=== PATIENT | female | born 1965 | race African-American/Black ===

== ENCOUNTER → 2016-04-11 | Outpatient (CLI) | payer MEDICAID ==
[2016-04-11 14:50] LABS: ABSOLUTE LYMPHOCYTES (AUTO) 2.7 10^3/uL (0.5-4.7); ABSOLUTE MONOCYTES (AUTO) 0.4 10^3/uL (0.1-1.4); ABSOLUTE NEUT (AUTO) 2.9 10^3/uL (1.7-8.2); BASOPHILS % (AUTO) 0.5 % (0-2); EOSINOPHILS % (AUTO) 0.5 % (0-6); HEMATOCRIT 33.9 % (36.0-47.0); HEMOGLOBIN 11.3 g/dL (12.0-15.5); LYMPHOCYTES % (AUTO) 44.6 % (13-45); MEAN CORPUSCULAR HEMOGLOBIN 26.4 pg (27.0-33.4); MEAN CORPUSCULAR HGB CONC 33.3 g/dL (32.0-36.0); MEAN CORPUSCULAR VOLUME 79 fl (80-97); MONOCYTES % (AUTO) 6.6 % (3-13); RED BLOOD COUNT 4.27 10^6/uL (3.72-5.28); RED CELL DISTRIBUTION WIDTH 16.1 % (11.5-14.0); SEGMENTED NEUTROPHILS % (AUTO) 47.8 % (42-78); WHITE BLOOD COUNT 6.1 10^3/uL (4.0-10.5)
[2016-04-11 15:03] LABS: ALANINE AMINOTRANSFERASE 30 U/L (9-52); ALBUMIN 4.4 g/dL (3.5-5.0); ALKALINE PHOSPHATASE 81 U/L (38-126); ANION GAP 14 (5-19); ASPARTATE AMINO TRANSFERASE 21 U/L (14-36); BILIRUBIN,TOTAL 0.5 mg/dL (0.2-1.3); BLOOD UREA NITROGEN 10 mg/dL (7-20); CALCIUM 9.4 mg/dL (8.4-10.2); CARBON DIOXIDE 25 mmol/L (22-30); CHLORIDE 107 mmol/L (98-107); CREATININE RESULT 0.83 mg/dL (0.52-1.25); GLUCOSE 82 mg/dL (75-110); POTASSIUM 3.8 mmol/L (3.6-5.0)
== END ==
LOC: OD 13:52
PROVIDERS: ATTEND Family Medicine
DX: K50.90 Crohn's disease, unspecified, without complications (principal)
CPT/HCPCS: 36415; 80053; 85025

== ENCOUNTER → 2016-05-11 | Outpatient (CLI) | payer MEDICAID ==
[2016-05-11 11:01] LABS: HEMATOCRIT 34.1 % (36.0-47.0); HEMOGLOBIN 11.1 g/dL (12.0-15.5); HGB HCT DIFFERENCE -0.8; MEAN CORPUSCULAR HEMOGLOBIN 26.1 pg (27.0-33.4); MEAN CORPUSCULAR HGB CONC 32.6 g/dL (32.0-36.0); MEAN CORPUSCULAR VOLUME 80 fl (80-97); RED BLOOD COUNT 4.26 10^6/uL (3.72-5.28); RED CELL DISTRIBUTION WIDTH 16.2 % (11.5-14.0); WHITE BLOOD COUNT 4.3 10^3/uL (4.0-10.5)
[2016-05-11 11:31] LABS: BILIRUBIN,TOTAL 0.7 mg/dL (0.2-1.3)
[2016-05-11 11:32] LABS: ALBUMIN 4.4 g/dL (3.5-5.0)
[2016-05-11 11:42] LABS: ERYTHROCYTE SEDIMENTATION RATE 68 mm/hr (0-30)
== END ==
LOC: OD 10:05
PROVIDERS: ATTEND Internal Medicine Gastroenterology
DX: K50.00 Crohn's disease of small intestine without complications (principal)
CPT/HCPCS: 36415; 80076; 85027; 85652; 86141

== ENCOUNTER 2016-05-21 04:09 | Emergency (ER) | payer MEDICAID ==
[2016-05-21] MEDS ORDERED: IPRATROPIUM/ALBUTEROL 0.5-2.5 MG/3 ML AMPUL NEB ONE ×2 (06:04)
[2016-05-21] MEDS ORDERED: HYDROCODONE/ACETAMINOPHEN 5-325 MG TABLET PO ONE (06:35)
--- NOTE | 2016-05-21 06:35 | ER Document Report ---
ED General - General Chief Complaint: Chest Tightness Stated Complaint: SHORT OF BREATH Mode of Arrival: Ambulatory Information source: Patient Notes: 51-year-old female history of Crohn's disease presents with one week duration of shortness of breath. Patient denies any fevers or chills today notes she had fevers over the past few days admits to headache congestion chest tightness productive yellow cough Patient is currently on azithromycin TRAVEL OUTSIDE OF THE [place] IN LAST 30 DAYS: No - HPI Onset: Last week Onset/Duration: Persistent Quality of pain: Achy Severity: Mild Pain Level: 1 Associated symptoms: Chest pain, Productive cough, Fever, Hurts to breath, Shortness of breath Exacerbated by: Coughing Relieved by: Denies Similar symptoms previously: Yes Recently seen / treated by doctor: Yes - Related Data Allergies/Adverse Reactions: morphine [Morphine] Allergy (Mild, Verified 01/21/16 02:34) aspirin [Aspirin] Allergy (Verified 03/26/15 06:16) NSAIDS (Non-Steroidal Anti-Inflamma [Nsaids] Allergy (Verified 03/26/15 06:16) pregabalin [From Lyrica] Allergy (Verified 03/26/15 06:16) Past Medical History - Social History Smoking Status: Never Smoker Cigarette use (# per day): No Chew tobacco use (# tins/day): No Smoking Education Provided: No Frequency of alcohol use: Rare Drug Abuse: None Family History: Reviewed & Not Pertinent Patient has suicidal ideation: No Patient has homicidal ideation: No - Past Medical History Cardiac Medical History: Reports: Hx Congestive Heart Failure, Hx Heart Attack - "mild" 2006, Hx Hypertension Neurological Medical History: Reports: Hx Cerebrovascular Accident - Patient claims to have had a stroke in May 2012. Renal/ Medical History: Denies: Hx Peritoneal Dialysis Malignancy Medical History: Reports: Hx Skin Cancer GI Medical History: Reports: Hx Crohn's Disease Past Surgical History: Reports: Hx Section - x5, Hx Cholecystectomy, Hx Herniorrhaphy, Hx Tonsillectomy - Immunizations Hx Diphtheria, Pertussis, Tetanus Vaccination: Yes - unsure of date Review of Systems - Review of Systems Notes: ALL OTHER SYSTEMS REVIEWED AND NEGATIVE. Dictation was performed using [employer] voice recognition software PHYSICAL EXAMINATION: GENERAL: Well-appearing, well-nourished and in no acute distress. HEAD: Atraumatic, normocephalic. EYES: Pupils equal round and reactive to light, extraocular movements intact, conjunctiva are normal. ENT: Nares patent, oropharynx clear without exudates. Moist mucous membranes. NECK: Normal range of motion, supple without lymphadenopathy LUNGS: Breath sounds clear to auscultation bilaterally and equal. No wheezes rales or rhonchi. HEART: Regular rate and rhythm without murmurs ABDOMEN: Soft, nontender, nondistended abdomen. No guarding, no rebound. No masses appreciated. Female : deferred Musculoskeletal: Normal range of motion, no pitting or edema. No cyanosis. NEUROLOGICAL: Cranial nerves grossly intact. Normal speech, normal gait. Normal sensory, motor exams PSYCH: Normal mood, normal affect. SKIN: Warm, Dry, normal turgor, no rashes or lesions noted. Course - Re-evaluation Re-evalutation: 05/21/16 06:34 Patient noted to have a productive cough of one-week duration, as already been placed on a Z-Barry was diagnosed as a viral infection unless. At this time patient notes that she continues to shortness of breath. Lab work imaging pending however she is in no distress resting comfortably 05/21/16 06:57 Physical examination on reevaluation notes no distress, patient still resting comfortably 05/21/16 08:22 Chest x-ray influenza were negative, patient has probable viral infections otherwise stable for discharge After performing a Medical Screening Examination, I estimate there is LOW risk for ACUTE CORONARY SYNDROME, RESPIRATORY FAILURE, SEPSIS OR MENINGITIS, thus I consider the discharge disposition reasonable. The patient and I have discussed the diagnosis and risks, and we agree with discharging home with close follow- up. We also discussed returning to the Emergency Department immediately if new or worsening symptoms occur. We have discussed the symptoms which are most concerning (e.g., changing or worsening pain, trouble swallowing or breathing, neck stiffness, fever) that necessitate immediate return. - Laboratory Result Diagrams: 05/21/16 06:41 05/21/16 06:41 Laboratory results interpreted by me: 05/21/16 05/21/16 06:41 06:41 WBC 3.0 L Hgb 11.1 L Hct 34.0 L MCH 26.1 L RDW 16.2 H Seg Neutrophils % 38.7 L Lymphocytes % 48.5 H Absolute Neutrophils 1.2 L Potassium 3.4 L AST 44 H Creatine Kinase 167 H - Diagnostic Test Radiology reviewed: Image reviewed, Reports reviewed - EKG Interpretation by Me EKG shows normal: Sinus rhythm, [place], QRS Complexes Discharge - Discharge Clinical Impression: Productive cough, Nasal congestion, Body aches Condition: Stable Disposition: HOME, SELF-CARE Instructions: Upper Respiratory Illness ([facility]) Referrals: ARIANNE HUBBARD MD [Primary Care Provider] - Follow up tomorrow
[2016-05-21 07:02] LABS: ABSOLUTE LYMPHOCYTES (AUTO) 1.5 10^3/uL (0.5-4.7); ABSOLUTE MONOCYTES (AUTO) 0.3 10^3/uL (0.1-1.4); ABSOLUTE NEUT (AUTO) 1.2 10^3/uL (1.7-8.2); BASOPHILS % (AUTO) 0.7 % (0-2); EOSINOPHILS % (AUTO) 1.3 % (0-6); HEMOGLOBIN 11.1 g/dL (12.0-15.5); HGB HCT DIFFERENCE -0.7; LYMPHOCYTES % (AUTO) 48.5 % (13-45); MEAN CORPUSCULAR HEMOGLOBIN 26.1 pg (27.0-33.4); MEAN CORPUSCULAR HGB CONC 32.7 g/dL (32.0-36.0); MEAN CORPUSCULAR VOLUME 80 fl (80-97); MONOCYTES % (AUTO) 10.8 % (3-13); RED BLOOD COUNT 4.26 10^6/uL (3.72-5.28); RED CELL DISTRIBUTION WIDTH 16.2 % (11.5-14.0); SEGMENTED NEUTROPHILS % (AUTO) 38.7 % (42-78)
[2016-05-21 07:09] LABS: ALANINE AMINOTRANSFERASE 25 U/L (9-52); ALBUMIN 3.7 g/dL (3.5-5.0); ALKALINE PHOSPHATASE 81 U/L (38-126); ANION GAP 10 (5-19); ASPARTATE AMINO TRANSFERASE 44 U/L (14-36); BILIRUBIN,TOTAL 0.4 mg/dL (0.2-1.3); BLOOD UREA NITROGEN 7 mg/dL (7-20); CALCIUM 8.8 mg/dL (8.4-10.2); CARBON DIOXIDE 30 mmol/L (22-30); CHLORIDE 104 mmol/L (98-107); CREATINE KINASE 167 U/L (30-135); CREATININE RESULT 0.85 mg/dL (0.52-1.25); GLUCOSE 90 mg/dL (75-110); POTASSIUM 3.4 mmol/L (3.6-5.0); SODIUM 144.1 mmol/L (137-145); TOTAL PROTEIN 8.1 g/dL (6.3-8.2)
[2016-05-21 07:21] LABS: CREATINE KINASE MB 0.27 ng/mL (<4.55)
[2016-05-21 07:22] LABS: TROPONIN I < 0.012 ng/mL
--- NOTE | 2016-05-21 08:21 | EKG REPORT ---
SEVERITY:- BORDERLINE ECG - SINUS RHYTHM BORDERLINE T ABNORMALITIES, ANTERIOR LEADS : Confirmed by: Clarence Birmingham 21-May-2016 08:21:15
[2016-05-21] MEDS ORDERED: ALBUTEROL SULFATE HFA (90 MCG/PUFF) 8 GM MDI (1 MDI/ER DISP) IH PRN (08:22)
[2016-05-21 08:39] VITALS: BP 126/65
== END 2016-05-21 08:50 | disposition home or self-care (01) ==
LOC: ER 04:09
DX: R05 Cough (principal); R09.81 Nasal congestion; R06.02 Shortness of breath; R51 Headache; R07.89 Other chest pain; R50.9 Fever, unspecified; I25.2 Old myocardial infarction; I10 Essential (primary) hypertension; Z86.73 Personal history of transient ischemic attack (TIA), and cerebral infarction without residual deficits; Z85.828 Personal history of other malignant neoplasm of skin; Z88.5 Allergy status to narcotic agent; Z88.6 Allergy status to analgesic agent; Z88.8 Allergy status to other drugs, medicaments and biological substances
CPT/HCPCS: 93005; 94640; 99285; 36415; 82553; 82550; 85025; 80053; 84484; 87804; 83880; 71020; 93010; J3490; J7620

== ENCOUNTER → 2016-07-23 | Outpatient (CLI) | payer MEDICAID | LOC: LAB 17:23 | PROVIDERS: ATTEND Family Medicine | DX: M48.06 Spinal stenosis, lumbar region (principal) | CPT/HCPCS: 36415; 85652; 86038; 86430 ==

== ENCOUNTER → 2016-10-01 | Outpatient (CLI) | payer MEDICAID ==
--- NOTE | 2016-10-01 17:16 | RADIOLOGY REPORT (SQ) ---
EXAM DESCRIPTION: FOOT LEFT COMPLETE COMPLETED DATE/TIME: 10/01/2016 4:50 pm REASON FOR STUDY: PAIN IN LEFT FOOT M79.672 PAIN IN LEFT FOOT COMPARISON: None. NUMBER OF VIEWS: Three views. TECHNIQUE: AP, lateral and oblique radiographic images acquired of the left foot. LIMITATIONS: None. FINDINGS: MINERALIZATION: Normal. BONES: No acute fracture or dislocation. No worrisome bone lesions for tumor. Dysmorphic left 5th t oe proximal phalanx, small and well corticated but irregular in shape. Question old remote prior fra cture. Plantar and dorsal calcaneal spurs are present JOINTS: No joint space narrowing or bulky bony spurring. SOFT TISSUES: Diffuse forefoot soft tissue swelling. No foreign body. OTHER: No other significant finding. IMPRESSION: Forefoot soft tissue swelling without acute findings. TECHNICAL DOCUMENTATION: JOB ID: [id number] [employer]- All Rights Reserved
== END ==
LOC: OD 16:10
PROVIDERS: ATTEND Family Medicine
DX: M79.672 Pain in left foot (principal)

== ENCOUNTER → 2017-02-15 | Outpatient (CLI) | payer MEDICARE, MEDICAID ==
--- NOTE | 2017-02-15 16:58 | WOMENS IMAGING REPORT ---
EXAM DESCRIPTION: 3D SCREENING MAMMO BILAT COMPLETED DATE/TIME: 02/15/2017 2:10 pm REASON FOR STUDY: ROUTINE SCREENING; Z12.31 Z12.31 ENCNTR SCREEN MAMMOGRAM FOR MALIGNANT NEOPLASM O F HERI COMPARISON: 08/17/2015 TECHNIQUE: Standard craniocaudal and mediolateral oblique views of each breast recorded using digita l acquisition and breast tomosynthesis. LIMITATIONS: None. FINDINGS: No masses, calcifications or architectural distortion. No areas of suspicion. Read with the assistance of CAD. .[facility] - R2 Cenova Version 1.3 .[facility] - R2 Cenova Version 1.3 .[facility] - R2 Cenova Version 2.4 .[facility] [place]2 Cenova Version 2.4 .[facility] - R2 We[employer] Lead Version 9.2 IMPRESSION: NORMAL MAMMOGRAM. BIRADS 1. BREAST DENSITY: a. The breasts are almost entirely fatty. BIRAD: 1 NEGATIVE RECOMMENDATION: ROUTINE SCREENING Please continue yearly bilateral screening tomosynthesis in February 2018 COMMENT: The patient has been notified of the results by letter per SA requirements. Additional no tification policies are in place for contacting patient with suspicious or incomplete findings. Quality ID #[id number]: The [employer] recommends an annual screening mammogram for women aged 40 years or over. This facility utilizes a reminder system to ensure that all patients receive reminder letters, and/or direct phone calls for appointments. This includes reminders for routine scr eening mammograms, diagnostic mammograms, or other Breast Imaging Interventions when appropriate. Th is patient will be placed in the appropriate reminder system. The [employer] (ACR) has developed recommendations for screening MRI of the breast s in certain patient populations, to be used in conjunction with mammography. Breast MRI surveillanc e may be appropriate for women with more than 20% lifetime risk of developing breast cancer as deter mined by genetic testing, significant family history of the disease, or history of mantle radiation f or Hodgkins Disease. ACR Practice Guidelines 2008. DBT Technology DBT is a type of tomographic mammography. With conventional mammography, overlapping breast tissue ma y make lesions difficult to detect, even with good compression. DBT uses an x-ray tube that rotates a round the breast, taking images at different angles. These images are then combined to create thin sl ices of the breast that the radiologist can view as a 3D reconstruction. The [employer] can perform full-field digital mammograms (2D imaging); or DBT (3D imaging); or both, in a combination mode that quickly performs both the mammogram and the tomosynthesis scan while the breast is still compressed. PQRS 6045F: Fluoroscopic imaging is not utilized for breast tomosynthesis. TECHNICAL DOCUMENTATION: FINDING NUMBER: (1) ASSESSMENT: (1) JOB ID: [id number] [employer]- All Rights Reserved
== END ==
LOC: WI 13:10
PROVIDERS: ATTEND Physician Assistant
DX: Z12.31 Encounter for screening mammogram for malignant neoplasm of breast (principal)
CPT/HCPCS: 77063; G0202; 77067

== ENCOUNTER 2017-04-01 12:47 | Emergency (ER) | payer MEDICARE, MEDICAID ==
[2017-04-01] MEDS ORDERED: HYDROMORPHONE HCL INJ/PF 2 MG/ML AMPULE IV ONE ×2 (14:37→17:15)
--- NOTE | 2017-04-01 14:38 | ER Document Report ---
ED Medical Screen (RME) - General Chief Complaint: Loose Stools Stated Complaint: STOMACH PAIN Time Seen by Provider: 04/01/17 14:29 Mode of Arrival: Ambulatory Information source: Patient Notes: 51-year-old female history of Crohn's diverticulosis presents with complaints of abdominal pain fever and distention I have greeted and performed a rapid initial assessment of this patient. A comprehensive ED assessment and evaluation of the patient, analysis of test results and completion of the medical decision making process will be conducted by additional ED providers. PHYSICAL EXAMINATION: GENERAL: Well-appearing, well-nourished and in no acute distress. HEAD: Atraumatic, normocephalic. EYES: Pupils equal round extraocular movements intact, conjunctiva are normal. ENT: Nares patent NECK: Normal range of motion LUNGS: No respiratory distress Musculoskeletal: Normal range of motion NEUROLOGICAL: Normal speech, normal gait. PSYCH: Normal mood, normal affect. SKIN: Warm, Dry, normal turgor, no rashes or lesions noted. TRAVEL OUTSIDE OF THE [place] IN LAST 30 DAYS: No - Related Data Allergies/Adverse Reactions: morphine [Morphine] Allergy (Mild, Verified 01/21/16 02:34) aspirin [Aspirin] Allergy (Verified 03/26/15 06:16) NSAIDS (Non-Steroidal Anti-Inflamma [Nsaids] Allergy (Verified 03/26/15 06:16) pregabalin [From Lyrica] Allergy (Verified 03/26/15 06:16) Home Medications: Current Home Medications Ergocalciferol (Vitamin D2) [Vitamin D2] 50,000 unit PO ASDIR PRN 04/01/17 [ History] Mometasone Furoate [Nasonex] 2 inh NS DAILY 04/01/17 [History] Oxycodone HCl 15 mg PO Q6H PRN 04/01/17 [History] Prednisone 2.5 mg PO DAILY 04/01/17 [History] Past Medical History - Social History Chew tobacco use (# tins/day): No Frequency of alcohol use: None Drug Abuse: None - Past Medical History Cardiac Medical History: Reports: Hx Congestive Heart Failure, Hx Heart Attack - "mild" 2006, Hx Hypertension Neurological Medical History: Reports: Hx Cerebrovascular Accident - Patient claims to have had a stroke in May 2012. Renal/ Medical History: Denies: Hx Peritoneal Dialysis Malignancy Medical History: Reports: Hx Skin Cancer GI Medical History: Reports: Hx Crohn's Disease Past Surgical History: Reports: Hx Section - x5, Hx Cholecystectomy, Hx Herniorrhaphy, Hx Tonsillectomy - Immunizations Hx Diphtheria, Pertussis, Tetanus Vaccination: Yes - unsure of date Physical Exam - Vital signs Vitals: Temp Pulse Resp BP Pulse Ox 98.6 F 85 20 187/87 H 96 04/01/17 13:01 04/01/17 13:01 04/01/17 13:01 04/01/17 13:01 04/01/17 13:01 Course - Vital Signs Vital signs: Temp Pulse Resp BP Pulse Ox 98.6 F 85 20 187/87 H 96 04/01/17 13:01 04/01/17 13:01 04/01/17 13:01 04/01/17 13:01 04/01/17 13:01
[2017-04-01] MEDS ORDERED: ONDANSETRON HCL INJ/PF 4 MG/2 ML SDV IV ONE (15:29)
--- NOTE | 2017-04-01 15:30 | ER Document Report ---
ED General - General Mode of Arrival: Ambulatory Information source: Patient TRAVEL OUTSIDE OF THE [place] IN LAST 30 DAYS: No - HPI Patient complains to provider of: Left knee and generalized abdominal pain Onset: Other - see notes above Associated symptoms: Other - see notes above <RAFAEL DINERO - Last Filed: 04/01/17 16:00> <SHARYN ANTHONY - Last Filed: 04/01/17 23:29> - General Chief Complaint: Loose Stools Stated Complaint: STOMACH PAIN Time Seen by Provider: 04/01/17 14:29 Notes: 51 year old female with history of Crohn's and diverticulitis (diagnosed 2014) presents to the ED complaining of left knee pain that started a few weeks ago but worsened recently. Patient received a cortisone shot which helped for a few days, but was told that she will likely need surgery in the future secondary to inflammation around the left knee. Patient additionally complains of generalized abdominal pain that started 2 days ago and was seen by her PCP. Patient was prescribed 10 mg Prednisone for 5 days and told to taper off following the full dose. Patient reports that she has not taken the steroids for the past 3 days. Patient also complains of nausea, night sweats and chills, and increased loose bowel movements, but denies vomiting. Patient receives Remicade infusions every 6 weeks with the last on 03/14 or 03/15. Patient was told she had CHF shortly following her mother's in 2004, states that she has not been seen for CHF and is not on any medications. PCP: Lindsey Velasquez (Dr. Dinero's office) (RAFAEL DINERO) - Related Data Allergies/Adverse Reactions: morphine [Morphine] Allergy (Mild, Verified 01/21/16 02:34) aspirin [Aspirin] Allergy (Verified 03/26/15 06:16) NSAIDS (Non-Steroidal Anti-Inflamma [Nsaids] Allergy (Verified 03/26/15 06:16) pregabalin [From Lyrica] Allergy (Verified 03/26/15 06:16) Home Medications: Current Home Medications Ergocalciferol (Vitamin D2) [Vitamin D2] 50,000 unit PO ASDIR PRN 04/01/17 [ History] Mometasone Furoate [Nasonex] 2 inh NS DAILY 04/01/17 [History] Oxycodone HCl 15 mg PO Q6H PRN 04/01/17 [History] Prednisone 2.5 mg PO DAILY 04/01/17 [History] Past Medical History - General Information source: Patient - Social History Smoking Status: Never Smoker Chew tobacco use (# tins/day): No Frequency of alcohol use: None Drug Abuse: None Family History: Reviewed & Not Pertinent Patient has suicidal ideation: No Patient has homicidal ideation: No - Past Medical History Cardiac Medical History: Reports: Hx Congestive Heart Failure, Hx Heart Attack - "mild" 2006, Hx Hypertension Neurological Medical History: Reports: Hx Cerebrovascular Accident - Patient claims to have had a stroke in May 2012. Renal/ Medical History: Denies: Hx Peritoneal Dialysis Malignancy Medical History: Reports: Hx Skin Cancer GI Medical History: Reports: Hx Crohn's Disease, Hx Diverticulitis Past Surgical History: Reports: Hx Section - x5, Hx Cholecystectomy, Hx Herniorrhaphy, Hx Tonsillectomy - Immunizations Hx Diphtheria, Pertussis, Tetanus Vaccination: Yes - unsure of date <RAFAEL DINERO - Last Filed: 04/01/17 16:00> Review of Systems - Review of Systems Constitutional: See HPI, Chills, Diaphoresis EENT: No symptoms reported Cardiovascular: No symptoms reported Respiratory: No symptoms reported Gastrointestinal: See HPI, Abdominal pain - generalized, Other - increased bowel movements. denies: Vomiting Genitourinary: No symptoms reported Female Genitourinary: No symptoms reported Musculoskeletal: See HPI, Joint pain - left knee pain, Other - left thigh pain Skin: No symptoms reported Hematologic/Lymphatic: No symptoms reported Neurological/Psychological: No symptoms reported -: Yes All other systems reviewed and negative <RAFAEL DINERO - Last Filed: 04/01/17 16:00> Physical Exam <RAFAEL DINERO - Last Filed: 04/01/17 16:00> <SHARYN ANTHONY - Last Filed: 04/01/17 23:29> - Vital signs Vitals: Temp Pulse Resp BP Pulse Ox 98.6 F 85 20 187/87 H 96 04/01/17 13:01 04/01/17 13:01 04/01/17 13:01 04/01/17 13:01 04/01/17 13:01 - Notes Notes: GENERAL: Alert, interacts well. No acute distress. HEAD: Normocephalic, atraumatic. EYES: Pupils equal, round, and reactive to light. Extraocular movements intact. ENT: Oral mucosa moist, tongue midline. NECK: Full range of motion. Supple. Trachea midline. LUNGS: Clear to auscultation bilaterally, no wheezes, rales, or rhonchi. No respiratory distress. HEART: Regular rate and rhythm. No murmurs, gallops, or rubs. ABDOMEN: Soft. Non-distended. Bowel sounds present in all 4 quadrants. Generalized abdominal tenderness to palpation; worse to the RLQ. Mild guarding, no rebound or rigidity. Overweight. EXTREMITIES: Moves all 4 extremities spontaneously. No edema, radial and dorsalis pedis pulses 2/4 bilaterally. No cyanosis. Negative SLR bilaterally. Complains of pain at the left hip and knee when moving left leg. NEUROLOGICAL: Alert and oriented x3. Normal speech. PSYCH: Normal affect, normal mood. SKIN: Warm, dry, normal turgor. No rashes or lesions noted. (RAFAEL DINERO) Course <RAFAEL DINERO - Last Filed: 04/01/17 16:00> - Laboratory Result Diagrams: 04/01/17 15:58 04/01/17 15:58 <SHARYN ANTHONY - Last Filed: 04/01/17 23:29> - Re-evaluation Re-evalutation: 04/01/17 19:49 CBC shows mild anemia with hemoglobin 10.8, no leukocytosis, no left shift, coags normal, CMP unremarkable, cardiac enzymes negative 2, given the history of Crohn's disease and subjective fevers CT scan of the abdomen and pelvis was performed with IV and oral contrast, completely unremarkable and there is a surgically absent gallbladder, appendix was visualized and is normal. Patient has not had any vomiting or diarrhea since being here, appears much more comfortable. Discussed with patient that I do not know exactly what is causing her pain however at present I do not see any acute bacterial infections or surgical pathology, her chest pain does not appear to be coming from acute coronary syndrome. Patient will be discharged to home, patient states in the past the same symptoms have gone away when started on steroids, she was previously taking 10 mg of steroids once a day but stopped taking it on Saturday because she lost it, states that this did not help. I am willing to try a slightly increased dose of steroid with taper, we will start her 20 mg a day for 5 days and then taper down by 5 mg every 2 days. I am also suspicious for possible sciatica being the cause of her left leg pain which radiates from her buttock down to her knee and worsens with the straight leg raising test but does not go past her knee. Patient will be started on Flexeril. (SHARYN ANTHONY) - Vital Signs Vital signs: Temp Pulse Resp BP Pulse Ox 98.0 F 72 16 129/80 H 98 04/01/17 20:06 04/01/17 20:06 04/01/17 20:06 04/01/17 20:06 04/01/17 20:06 - Laboratory Laboratory results interpreted by me: 04/01/17 04/01/17 15:58 15:58 Hgb 10.8 L Hct 33.2 L MCH 26.4 L RDW 16.4 H Chloride 108 H - EKG Interpretation by Me Additional EKG results interpreted by me: 04/01/17 19:50 EKG shows sinus rhythm at a rate of 70, normal axis, normal intervals, no ST segment elevations or depressions, no T-wave inversions beyond that which is seen in lead III which is nonspecific per my interpretation. (SHARYN ANTHONY) Discharge <RAFAEL DINERO - Last Filed: 04/01/17 16:00> <SHARYN ANTHONY - Last Filed: 04/01/17 23:29> - Discharge Clinical Impression: History of Crohn's disease, Diffuse abdominal pain, Left leg pain Hypertension Qualifiers: Hypertension type: essential hypertension Qualified Code(s): I10 - Essential ( primary) hypertension Condition: Stable Disposition: HOME, SELF-CARE Additional Instructions: We are restarting her steroids at a slightly higher dose. Please take 20 mg once a day for 5 days then decrease by 5 mg every 2 days. I have also started you on Flexeril. This is a muscle relaxer that may help with some of the pain in your left leg if this is coming from sciatica. It is very important with your history of Crohn's and arthritis and multiple other medical problems including high blood pressure that you follow-up with your primary care physician as well as with Dr. Caldwell the orthopedic surgeon to be rechecked. Please return to the emergency department for blood in your stool, blood in your vomiting, fevers or worsening abdominal pain. Prescriptions: Cyclobenzaprine HCl [Flexeril 5 mg Tablet] 5 mg PO TIDP PRN #15 tablet PRN Reason: Prednisone 5 mg PO ASDIR PRN #32 tablet PRN Reason: Forms: Elevated Blood Pressure Referrals: ARIANNE DINERO MD [Primary Care Provider] - Follow up in 3-5 days Scribe Attestation: 04/01/17 23:29 I personally performed the services described in the documentation, reviewed and edited the documentation which was dictated to the scribe in my presence, and it accurately records my words and actions. (SHARYN ANTHONY) Scribe Documentation - Scribe Written by Tim:: Tim Tovar, 04/01/2017 1619 acting as scribe for :: Jigna <RAFAEL DINERO - Last Filed: 04/01/17 16:00>
[2017-04-01 16:16] LABS: ABSOLUTE BASOPHILS # (AUTO) 0.1 10^3/uL (0.0-0.2); ABSOLUTE LYMPHOCYTES (AUTO) 2.9 10^3/uL (0.5-4.7); ABSOLUTE MONOCYTES (AUTO) 0.5 10^3/uL (0.1-1.4); ABSOLUTE NEUT (AUTO) 5.8 10^3/uL (1.7-8.2); BASOPHILS % (AUTO) 0.7 % (0-2); EOSINOPHILS % (AUTO) 0.2 % (0-6); HEMATOCRIT 33.2 % (36.0-47.0); HEMOGLOBIN 10.8 g/dL (12.0-15.5); HGB HCT DIFFERENCE -0.8; LYMPHOCYTES % (AUTO) 31.2 % (13-45); MEAN CORPUSCULAR HEMOGLOBIN 26.4 pg (27.0-33.4); MEAN CORPUSCULAR HGB CONC 32.7 g/dL (32.0-36.0); MEAN CORPUSCULAR VOLUME 81 fl (80-97); MONOCYTES % (AUTO) 5.2 % (3-13); RED BLOOD COUNT 4.11 10^6/uL (3.72-5.28); RED CELL DISTRIBUTION WIDTH 16.4 % (11.5-14.0); SEGMENTED NEUTROPHILS % (AUTO) 62.7 % (42-78); WHITE BLOOD COUNT 9.3 10^3/uL (4.0-10.5)
[2017-04-01 16:25] LABS: PROTHROMBIN TIME 13.4 SEC (11.4-15.4)
[2017-04-01 16:34] LABS: ALANINE AMINOTRANSFERASE 37 U/L (9-52); ALKALINE PHOSPHATASE 84 U/L (38-126); ANION GAP 11 (5-19); ASPARTATE AMINO TRANSFERASE 18 U/L (14-36); BILIRUBIN,DIRECT 0.2 mg/dL (0.0-0.4); BILIRUBIN,TOTAL 0.4 mg/dL (0.2-1.3); BLOOD UREA NITROGEN 13 mg/dL (7-20); CALCIUM 10.2 mg/dL (8.4-10.2); CARBON DIOXIDE 26 mmol/L (22-30); CHLORIDE 108 mmol/L (98-107); CREATINE KINASE 94 U/L (30-135); CREATININE RESULT 0.87 mg/dL (0.52-1.25); GLUCOSE 87 mg/dL (75-110); LIPASE 137.8 U/L (23-300); SODIUM 144.9 mmol/L (137-145); TOTAL PROTEIN 7.3 g/dL (6.3-8.2)
[2017-04-01 16:47] LABS: CREATINE KINASE MB < 0.22 ng/mL (<4.55); TROPONIN I < 0.012 ng/mL
--- NOTE | 2017-04-01 18:05 | RADIOLOGY REPORT (SQ) ---
EXAM DESCRIPTION: CT ABD/PELVIS WITH IV ORAL COMPLETED DATE/TIME: 04/01/2017 5:52 pm REASON FOR STUDY: Crohn's, fever COMPARISON: 10/19/2014. TECHNIQUE: CT scan of the abdomen and pelvis performed with intravenous and oral contrast using mima leeann scanning technique with dynamic intravenous contrast injection. Images reviewed with lung, soft t issue, and bone windows. Reconstructed coronal and sagittal MPR images reviewed. Delayed images for e valuation of the urinary system also acquired. All images stored on PACS. All CT scanners at this facility use dose modulation, iterative reconstruction, and/or weight based d osing when appropriate to reduce radiation dose to as low as reasonably achievable (ALARA). [facility]: Dose Right [facility]: CareDose [facility]: Dose Right [facility]: Teradose 4D [facility]: [employer] CONTRAST TYPE AND DOSE: contrast/concentration: Isovue 370.00 mg/ml; Total Contrast Delivered: 99.0 ml; Total Saline Delivered: 56.0 ml RENAL FUNCTION: BUN 13 creatinine 0.87. RADIATION DOSE: CT Rad equipment meets quality standard of care and radiation dose reduction techniq ues were employed. CTDIvol: 21.1 - 21.1 mGy. DLP: 2181 mGy-cm.. LIMITATIONS: None. FINDINGS: LOWER CHEST: No significant findings. No nodules or infiltrates. LIVER: Normal size. No masses. No dilated ducts. SPLEEN: Normal size. No focal lesions. PANCREAS: No masses. No significant calcifications. No adjacent inflammation or peripancreatic fluid collections. Pancreatic duct not dilated. GALLBLADDER: Surgically absent. ADRENAL GLANDS: No significant masses or asymmetry. RIGHT KIDNEY AND URETER: No solid masses. No significant calcification. No hydronephrosis or hydroure ter. LEFT KIDNEY AND URETER: No solid masses. No significant calcification. No hydronephrosis or hydrouret er. AORTA AND VESSELS: No aneurysm. No dissection. Renal arteries, SMA, celiac without stenosis. RETROPERITONEUM: No retroperitoneal adenopathy, hemorrhage or masses. BOWEL AND PERITONEAL CAVITY: Scattered colonic diverticuli. No obstruction. No visualized masses. No free fluid. No inflammatory changes or thickening of bowel wall. APPENDIX: Normal. PELVIS: No significant masses. Normal bladder. No free fluid. ABDOMINAL WALL: No masses. No hernias. BONES: No significant or acute findings. OTHER: No other significant finding. IMPRESSION: COLONIC DIVERTICULOSIS. NO CT FINDINGS OF ACUTE DIVERTICULITIS. NO OTHER SIGNIFICANT O R ACUTE FINDINGS IN THE ABDOMEN OR PELVIS. TECHNICAL DOCUMENTATION: JOB ID: [id number] Quality ID # [id number]: Final reports with documentation of one or more dose reduction techniques (e.g., Au tomated exposure control, adjustment of the mA and/or kV according to patient size, use of iterative reconstruction technique) 2010 [employer]- All Rights Reserved
[2017-04-01 19:17] LABS: CREATINE KINASE MB < 0.22 ng/mL (<4.55); TROPONIN I < 0.012 ng/mL
[2017-04-01] MEDS ORDERED: PREDNISONE 20 MG TABLET PO ONE (19:47)
[2017-04-01] MEDS ORDERED: OXYCODONE-ACETAMINOPHEN 5-325 MG TABLET PO ONE (19:47)
[2017-04-01 20:20] VITALS: BP 129/80
--- NOTE | 2017-04-01 22:11 | EKG REPORT ---
SEVERITY:- ABNORMAL ECG - SINUS RHYTHM LVH BY VOLTAGE : Confirmed by: Clarence Birmingham 01-Apr-2017 22:11:06
--- NOTE | 2017-04-01 22:12 | EKG REPORT ---
SEVERITY:- ABNORMAL ECG - SINUS RHYTHM PROBABLE LEFT ATRIAL ABNORMALITY LEFT VENTRICULAR HYPERTROPHY : Confirmed by: Clarence Birmingham 01-Apr-2017 22:11:44
== END 2017-04-01 20:19 | disposition home or self-care (01) ==
LOC: ER 12:47
DX: R10.84 Generalized abdominal pain (principal); M79.605 Pain in left leg; K50.90 Crohn's disease, unspecified, without complications; I10 Essential (primary) hypertension; R61 Generalized hyperhidrosis; I25.2 Old myocardial infarction; Z90.49 Acquired absence of other specified parts of digestive tract; Z86.73 Personal history of transient ischemic attack (TIA), and cerebral infarction without residual deficits; Z88.6 Allergy status to analgesic agent
CPT/HCPCS: 93005; 96376; 99284; 96374; 96375; 36415; 82553; 82550; 83690; 85025; 85610; 80053; 84484; 83880; 74177; 93010; A9270 ×2; J1170; J2405; J7512

== ENCOUNTER 2017-05-15 20:56 | Emergency (ER) | payer MEDICARE, MEDICAID ==
--- NOTE | 2017-05-15 21:25 | EKG REPORT ---
SEVERITY:- ABNORMAL ECG - SINUS RHYTHM LEFT ATRIAL ABNORMALITY PROBABLE LEFT VENTRICULAR HYPERTROPHY : Confirmed by: Clarence Birmingham 15-May-2017 21:24:33
--- NOTE | 2017-05-16 00:11 | ER Document Report ---
ED Medical Screen (RME) - General Chief Complaint: Chest Tightness Stated Complaint: SHORTNESS OF BREATH Time Seen by Provider: 05/16/17 00:10 Mode of Arrival: Ambulatory Information source: Patient Notes: 51-year-old female presents to ED for chest tightness short of breath and sick since Saturday. Patient stated she went to Dr. Dinero on Saturday was started on Cipro and Flagyl. She states she has a history of Crohn's and he went to be sure she did not get septic like last time. She states she started with palpitations and had to cough to get her heart is calm down today. She states she has an appointment with Dr. Dinero at 10 AM in the morning but she needed to get checked out because she was so short of breath heart was racing tonight. While she was seen in the pit her pulse was 72 O2 sat was 100% lungs were clear respirations regular and unlabored. I have greeted and performed a rapid initial assessment of this patient. A comprehensive ED assessment and evaluation of the patient, analysis of test results and completion of medical decision making process will be conducted by an additional ED providers. TRAVEL OUTSIDE OF THE [place] IN LAST 30 DAYS: No - Related Data Allergies/Adverse Reactions: morphine [Morphine] Allergy (Mild, Verified 01/21/16 02:34) aspirin [Aspirin] Allergy (Verified 03/26/15 06:16) NSAIDS (Non-Steroidal Anti-Inflamma [Nsaids] Allergy (Verified 03/26/15 06:16) pregabalin [From Lyrica] Allergy (Verified 03/26/15 06:16) Past Medical History - Past Medical History Cardiac Medical History: Reports: Hx Congestive Heart Failure, Hx Heart Attack - "mild" 2006, Hx Hypertension Neurological Medical History: Reports: Hx Cerebrovascular Accident - Patient claims to have had a stroke in May 2012. Renal/ Medical History: Denies: Hx Peritoneal Dialysis Malignancy Medical History: Reports: Hx Skin Cancer GI Medical History: Reports: Hx Crohn's Disease, Hx Diverticulitis Past Surgical History: Reports: Hx Section - x5, Hx Cholecystectomy, Hx Herniorrhaphy, Hx Tonsillectomy - Immunizations Hx Diphtheria, Pertussis, Tetanus Vaccination: Yes - unsure of date
--- NOTE | 2017-05-16 00:55 | RADIOLOGY REPORT (SQ) ---
EXAM DESCRIPTION: CHEST PA/LAT CLINICAL HISTORY: cough short of breath COMPARISON: 05/21/2016 FINDINGS: Frontal and lateral views of the chest. Tortuosity of the thoracic aorta. Heart is not enlarged. Right IJ Mediport with tip in the SVC. No consolidation, pneumothorax, or pleural effusion. No displaced rib fractures identified. Upper abdominal soft tissues are unremarkable. IMPRESSION: 1. No acute pulmonary process identified.
[2017-05-16 01:10] LABS: ABSOLUTE BASOPHILS # (AUTO) 0.1 10^3/uL (0.0-0.2); ABSOLUTE LYMPHOCYTES (AUTO) 3.3 10^3/uL (0.5-4.7); ABSOLUTE MONOCYTES (AUTO) 0.5 10^3/uL (0.1-1.4); ABSOLUTE NEUT (AUTO) 4.4 10^3/uL (1.7-8.2); BASOPHILS % (AUTO) 0.8 % (0-2); EOSINOPHILS % (AUTO) 0.5 % (0-6); HEMATOCRIT 35.4 % (36.0-47.0); HEMOGLOBIN 11.6 g/dL (12.0-15.5); LYMPHOCYTES % (AUTO) 40.1 % (13-45); MEAN CORPUSCULAR HEMOGLOBIN 26.2 pg (27.0-33.4); MEAN CORPUSCULAR HGB CONC 32.7 g/dL (32.0-36.0); MEAN CORPUSCULAR VOLUME 80 fl (80-97); MONOCYTES % (AUTO) 5.7 % (3-13); PLATELET COUNT 343 10^3/uL (150-450); RED BLOOD COUNT 4.41 10^6/uL (3.72-5.28); RED CELL DISTRIBUTION WIDTH 16.1 % (11.5-14.0); SEGMENTED NEUTROPHILS % (AUTO) 52.9 % (42-78); TOTAL CELLS COUNTED % (AUTO) 100 %; WHITE BLOOD COUNT 8.3 10^3/uL (4.0-10.5)
[2017-05-16 01:24] LABS: ALANINE AMINOTRANSFERASE 30 U/L (9-52); ALBUMIN 4.2 g/dL (3.5-5.0); ALKALINE PHOSPHATASE 79 U/L (38-126); ANION GAP 12 (5-19); ASPARTATE AMINO TRANSFERASE 15 U/L (14-36); BILIRUBIN,DIRECT 0.4 mg/dL (0.0-0.4); BILIRUBIN,TOTAL 0.4 mg/dL (0.2-1.3); BLOOD UREA NITROGEN 12 mg/dL (7-20); CALCIUM 9.8 mg/dL (8.4-10.2); CARBON DIOXIDE 26 mmol/L (22-30); CHLORIDE 104 mmol/L (98-107); CREATINE KINASE 64 U/L (30-135); GLUCOSE 94 mg/dL (75-110); POTASSIUM 3.7 mmol/L (3.6-5.0); SODIUM 141.6 mmol/L (137-145); TOTAL PROTEIN 7.9 g/dL (6.3-8.2)
[2017-05-16 01:36] LABS: CREATINE KINASE MB < 0.22 ng/mL (<4.55); TROPONIN I < 0.012 ng/mL
[2017-05-16] MEDS ORDERED: HYDROMORPHONE HCL INJ/PF 2 MG/ML AMPULE IV ONE (02:45)
[2017-05-16 04:06] VITALS: BP 150/84
== END 2017-05-16 03:58 | disposition left against medical advice (07) ==
LOC: ER 20:56
DX: R07.9 Chest pain, unspecified (principal); R06.02 Shortness of breath; Z88.6 Allergy status to analgesic agent
CPT/HCPCS: 93005; 99281; 96374; 36415; 82553; 82550; 85025; 80053; 84484; 71046; 93010; J1170

== ENCOUNTER 2017-06-18 15:53 | Emergency (ER) | payer MEDICARE, MEDICAID ==
[2017-06-18] MEDS ORDERED: ASPIRIN 81 MG TABLET, CHEWABLE PO ONE (17:12)
--- NOTE | 2017-06-18 17:15 | ER Document Report ---
ED Medical Screen (RME) - General Chief Complaint: Shortness Of Breath Stated Complaint: SHORTNESS OF BREATH, DIZZY, HEADACHE Time Seen by Provider: 06/18/17 16:43 Mode of Arrival: Ambulatory Information source: Patient Notes: 52-year-old female history of Crohn's disease who receives treatments every 6 weeks and as well as being on steroids recently presents with complaints of chest pain shortness of breath and headaches I have greeted and performed a rapid initial assessment of this patient. A comprehensive ED assessment and evaluation of the patient, analysis of test results and completion of the medical decision making process will be conducted by additional ED providers. PHYSICAL EXAMINATION: GENERAL: Well-appearing, well-nourished and in no acute distress. HEAD: Atraumatic, normocephalic. EYES: Pupils equal round extraocular movements intact, conjunctiva are normal. ENT: Nares patent NECK: Normal range of motion LUNGS: No respiratory distress Musculoskeletal: Normal range of motion NEUROLOGICAL: Normal speech, normal gait. PSYCH: Normal mood, normal affect. SKIN: Warm, Dry, normal turgor, no rashes or lesions noted. TRAVEL OUTSIDE OF THE [place] IN LAST 30 DAYS: No - Related Data Allergies/Adverse Reactions: morphine [Morphine] Allergy (Mild, Verified 06/18/17 15:57) aspirin [Aspirin] Allergy (Verified 06/18/17 15:57) NSAIDS (Non-Steroidal Anti-Inflamma [Nsaids] Allergy (Verified 06/18/17 15:57) pregabalin [From Lyrica] Allergy (Verified 06/18/17 15:57) Past Medical History - Social History Chew tobacco use (# tins/day): No Frequency of alcohol use: None Drug Abuse: None - Past Medical History Cardiac Medical History: Reports: Hx Congestive Heart Failure, Hx Heart Attack - "mild" 2006, Hx Hypertension Neurological Medical History: Reports: Hx Cerebrovascular Accident - Patient claims to have had a stroke in May 2012. Renal/ Medical History: Denies: Hx Peritoneal Dialysis Malignancy Medical History: Reports: Hx Skin Cancer GI Medical History: Reports: Hx Crohn's Disease, Hx Diverticulitis Past Surgical History: Reports: Hx Section - x5, Hx Cholecystectomy, Hx Herniorrhaphy, Hx Tonsillectomy - Immunizations Hx Diphtheria, Pertussis, Tetanus Vaccination: Yes - unsure of date Doctor's Discharge - Discharge Referrals: ARIANNE HUBBARD MD [Primary Care Provider] - Follow up as needed
[2017-06-18] MEDS ORDERED: METOPROLOL TARTRATE 50 MG TABLET ONE (17:37)
--- NOTE | 2017-06-18 18:05 | RADIOLOGY REPORT (SQ) ---
EXAM DESCRIPTION: CT HEAD WITHOUT COMPLETED DATE/TIME: 06/18/2017 5:55 pm REASON FOR STUDY: headache COMPARISON: [address] brain exams since 09/11/2010 TECHNIQUE: Axial images acquired through the brain without intravenous contrast. Images reviewed wi th bone, brain and subdural windows. Images stored on PACS. All CT scanners at this facility use dose modulation, iterative reconstruction, and/or weight based d osing when appropriate to reduce radiation dose to as low as reasonably achievable (ALARA). [facility]: Dose Right [facility]: CareDose [facility]: Dose Right [facility]: Teradose 4D [facility]: Smart Box Jump RADIATION DOSE: CT Rad equipment meets quality standard of care and radiation dose reduction techniq ues were employed. CTDIvol: 64.6 mGy. DLP: 1034 mGy-cm. mGy. LIMITATIONS: None. FINDINGS: VENTRICLES: Normal size and contour. CEREBRUM: No masses. No hemorrhage. No midline shift. No evidence for acute infarction. Normal gra y/white matter differentiation. No areas of low density in the white matter. CEREBELLUM: No masses. No hemorrhage. No alteration of density. No evidence for acute infarction. EXTRAAXIAL SPACES: No fluid collections. No masses. ORBITS AND GLOBE: No intra- or extraconal masses. Normal contour of globe without masses. CALVARIUM: No fracture. PARANASAL SINUSES: No fluid or mucosal thickening. SOFT TISSUES: No mass or hematoma. OTHER: No other significant finding. IMPRESSION: NORMAL BRAIN CT WITHOUT CONTRAST. EVIDENCE OF ACUTE STROKE: NO. COMMENT: Quality ID # [id number]: Final reports with documentation of one or more dose reduction techniques (e.g., Automated exposure control, adjustment of the mA and/or kV according to patient size, use of iterative reconstruction technique) TECHNICAL DOCUMENTATION: JOB ID: [id number] [employer]- All Rights Reserved Reading location - IP/workstation name: [email or web address]
--- NOTE | 2017-06-18 18:06 | RADIOLOGY REPORT (SQ) ---
EXAM DESCRIPTION: CHEST SINGLE VIEW COMPLETED DATE/TIME: 06/18/2017 5:54 pm REASON FOR STUDY: chest pain , sob COMPARISON: Chest films 05/16/2017, 05/21/2016, 05/03/2014 EXAM PARAMETERS: NUMBER OF VIEWS: One view. TECHNIQUE: Single frontal radiographic view of the chest acquired. RADIATION DOSE: NA LIMITATIONS: None. FINDINGS: LUNGS AND PLEURA: No opacities, masses or pneumothorax. No pleural effusion. MEDIASTINUM AND HILAR STRUCTURES: No masses. Contour normal. HEART AND VASCULAR STRUCTURES: Stable mild cardiomegaly. BONES: No acute findings. HARDWARE: Right-sided permanent central line tip superior vena cava OTHER: No other significant finding. IMPRESSION: No acute findings. TECHNICAL DOCUMENTATION: JOB ID: [id number] [employer]- All Rights Reserved Reading location - IP/workstation name: [email or web address]
[2017-06-18] MEDS ORDERED: LIDOCAINE 4%/TETRACAINE 0.5%/EPI 0.18% 5 ML TOPICAL SOLN TOP ONE (18:21)
[2017-06-18] MEDS ORDERED: PROCHLORPERAZINE EDISYLATE INJ 10 MG/2 ML VIAL IV ONE (18:22)
[2017-06-18] MEDS ORDERED: NORMAL SALINE 500 ML IV ONE (18:22)
[2017-06-18] MEDS ORDERED: ONDANSETRON HCL INJ/PF 4 MG/2 ML SDV IV ONE (18:22)
[2017-06-18 19:05] LABS: ABSOLUTE LYMPHOCYTES (AUTO) 4.2 10^3/uL (0.5-4.7); ABSOLUTE MONOCYTES (AUTO) 0.7 10^3/uL (0.1-1.4); ABSOLUTE NEUT (AUTO) 5.4 10^3/uL (1.7-8.2); BASOPHILS % (AUTO) 0.3 % (0-2); EOSINOPHILS % (AUTO) 0.2 % (0-6); HEMATOCRIT 32.1 % (36.0-47.0); HEMOGLOBIN 10.5 g/dL (12.0-15.5); LYMPHOCYTES % (AUTO) 40.8 % (13-45); MEAN CORPUSCULAR HEMOGLOBIN 26.2 pg (27.0-33.4); MEAN CORPUSCULAR HGB CONC 32.6 g/dL (32.0-36.0); MEAN CORPUSCULAR VOLUME 81 fl (80-97); MONOCYTES % (AUTO) 6.3 % (3-13); PLATELET COUNT 346 10^3/uL (150-450); RED BLOOD COUNT 3.98 10^6/uL (3.72-5.28); RED CELL DISTRIBUTION WIDTH 16.4 % (11.5-14.0); SEGMENTED NEUTROPHILS % (AUTO) 52.4 % (42-78); TOTAL CELLS COUNTED % (AUTO) 100 %; WHITE BLOOD COUNT 10.4 10^3/uL (4.0-10.5)
[2017-06-18 19:35] LABS: CREATINE KINASE MB < 0.22 ng/mL (<4.55); TROPONIN I < 0.012 ng/mL
[2017-06-18 19:45] LABS: ALANINE AMINOTRANSFERASE 35 U/L (9-52); ALBUMIN 3.7 g/dL (3.5-5.0); ALKALINE PHOSPHATASE 64 U/L (38-126); ANION GAP 8 (5-19); ASPARTATE AMINO TRANSFERASE 15 U/L (14-36); BILIRUBIN,DIRECT 0.3 mg/dL (0.0-0.4); BILIRUBIN,TOTAL 0.3 mg/dL (0.2-1.3); BLOOD UREA NITROGEN 16 mg/dL (7-20); CALCIUM 9.1 mg/dL (8.4-10.2); CARBON DIOXIDE 29 mmol/L (22-30); CHLORIDE 107 mmol/L (98-107); CREATINE KINASE 68 U/L (30-135); GLUCOSE 87 mg/dL (75-110); POTASSIUM 3.1 mmol/L (3.6-5.0); SODIUM 144.3 mmol/L (137-145); TOTAL PROTEIN 7.1 g/dL (6.3-8.2)
[2017-06-18] MEDS ORDERED: POTASSIUM CHLORIDE 10 MEQ TABLET.SA PO ONE (19:48)
--- NOTE | 2017-06-18 19:55 | EKG REPORT ---
SEVERITY:- ABNORMAL ECG - SINUS RHYTHM MULTIPLE ATRIAL PREMATURE COMPLEXES PROBABLE LEFT ATRIAL ABNORMALITY : Confirmed by: Elgin Torres MD 18-Jun-2017 19:55:05
--- NOTE | 2017-06-18 20:17 | ER Document Report ---
ED General - General Chief Complaint: Shortness Of Breath Stated Complaint: SHORTNESS OF BREATH, DIZZY, HEADACHE Time Seen by Provider: 06/18/17 16:43 Mode of Arrival: Ambulatory TRAVEL OUTSIDE OF THE [place] IN LAST 30 DAYS: No - HPI Patient complains to provider of: Shortness of breath headache dizziness Notes: Patient coming in for shortness of breath headache dizziness ongoing for the last 2 3 days. Patient does have a history of Crohn's disease currently is on Remicade. Patient denies any known sick contacts. Patient denies fevers chills nausea vomiting. Upon my evaluation patient is resting comfortably. Patient states she did not receive flu shot this year states she was told she cannot have flu vaccinations because of the Remicade. Patient denies any recent antibiotics or recent trauma. Patient states headache in the back of her head intermittent . - Related Data Allergies/Adverse Reactions: morphine [Morphine] Allergy (Mild, Verified 06/18/17 15:57) aspirin [Aspirin] Allergy (Verified 06/18/17 15:57) NSAIDS (Non-Steroidal Anti-Inflamma [Nsaids] Allergy (Verified 06/18/17 15:57) pregabalin [From Lyrica] Allergy (Verified 06/18/17 15:57) Past Medical History - General Information source: Patient - Social History Smoking Status: Never Smoker Chew tobacco use (# tins/day): No Frequency of alcohol use: None Drug Abuse: None Family History: Reviewed & Not Pertinent Patient has suicidal ideation: No Patient has homicidal ideation: No - Past Medical History Cardiac Medical History: Reports: Hx Congestive Heart Failure, Hx Heart Attack - "mild" 2006, Hx Hypertension Neurological Medical History: Reports: Hx Cerebrovascular Accident - Patient claims to have had a stroke in May 2012. Renal/ Medical History: Denies: Hx Peritoneal Dialysis Malignancy Medical History: Reports: Hx Skin Cancer GI Medical History: Reports: Hx Crohn's Disease, Hx Diverticulitis Past Surgical History: Reports: Hx Section - x5, Hx Cholecystectomy, Hx Herniorrhaphy, Hx Tonsillectomy - Immunizations Hx Diphtheria, Pertussis, Tetanus Vaccination: Yes - unsure of date Review of Systems - Review of Systems Constitutional: Other - Headache dizziness EENT: No symptoms reported Cardiovascular: No symptoms reported Respiratory: Short of breath Gastrointestinal: No symptoms reported Genitourinary: No symptoms reported Female Genitourinary: No symptoms reported Musculoskeletal: No symptoms reported Skin: No symptoms reported Hematologic/Lymphatic: No symptoms reported Neurological/Psychological: No symptoms reported Physical Exam - Vital signs Vitals: Temp Pulse Resp BP 98.9 F 77 18 175/83 H 06/18/17 16:04 06/18/17 16:04 06/18/17 16:04 06/18/17 16:04 Interpretation: Normal - General General appearance: Appears well, Alert - HEENT Head: Normocephalic, Atraumatic Eyes: Normal Pupils: PERRL - Respiratory Respiratory status: No respiratory distress Chest status: Nontender Breath sounds: Normal Chest palpation: Normal - Cardiovascular Rhythm: Regular Heart sounds: Normal auscultation Murmur: No - Abdominal Inspection: Normal Distension: No distension Bowel sounds: Normal Tenderness: Nontender Organomegaly: No organomegaly - Back Back: Normal, Nontender - Extremities General upper extremity: Normal inspection, Nontender, Normal color, Normal ROM , Normal temperature General lower extremity: Normal inspection, Nontender, Normal color, Normal ROM , Normal temperature, Normal weight bearing. No: Kenton's sign - Neurological Neuro grossly intact: Yes Cognition: Normal Orientation: AAOx4 [place] Coma Scale Eye Opening: Spontaneous Larry Coma Scale Verbal: Oriented Larry Coma Scale Motor: Obeys Commands Larry Coma Scale Total: 15 Speech: Normal Motor strength normal: LUE, RUE, LLE, RLE Sensory: Normal - Psychological Associated symptoms: Normal affect, Normal mood - Skin Skin Temperature: Warm Skin Moisture: Dry Skin Color: Normal Course - Re-evaluation Re-evalutation: 06/18/17 22:02 Laboratory studies showed a low potassium which was replaced orally. Patient tolerated well. No clear etiology for the patient's symptoms. I do believe patient will likely has a underlying viral illness causing most of her symptoms. Patient has Zofran at home recommended we also give her Compazine she can take it together for headache control also take Tylenol Motrin for pain control. Patient was encouraged follow-up with her physicians for further evaluation. - Vital Signs Vital signs: Temp Pulse Resp BP Pulse Ox 98.5 F 77 20 158/85 H 99 06/18/17 20:01 06/18/17 16:04 06/18/17 20:01 06/18/17 20:01 06/18/17 20:01 - Laboratory Result Diagrams: 06/18/17 18:51 06/18/17 18:51 Laboratory results interpreted by me: 06/18/17 06/18/17 18:51 18:51 Hgb 10.5 L Hct 32.1 L MCH 26.2 L RDW 16.4 H Potassium 3.1 L Discharge - Discharge Clinical Impression: Viral syndrome Dyspnea Qualifiers: Dyspnea type: unspecified Qualified Code(s): R06.00 - Dyspnea, unspecified Condition: Good Disposition: HOME, SELF-CARE Instructions: Intravenous Compazine for Headaches ([facility]), Headache ([facility]), Viral Syndrome ([facility]) Additional Instructions: Your laboratory studies a day chest x-ray EKG and head CT are negative for any acute pathology. Your potassium was slightly low which may cause some muscle aches and pain. We did replace here. I would recommend eating a well-balanced diet. I do not see any critical pathology for your symptoms I do believe this may be due to a viral syndrome or a underlying virus. Please take medication as prescribed return to ER symptoms worsen. Prescriptions: Prochlorperazine Maleate [Compazine 10 mg Tablet] 10 mg PO Q6 #30 tablet Referrals: ARIANNE HUBBARD MD [Primary Care Provider] - Follow up in 3-5 days
[2017-06-18 20:33] VITALS: BP 158/85
== END 2017-06-18 20:28 | disposition home or self-care (01) ==
LOC: ER 15:53
DX: R06.02 Shortness of breath (principal); B34.9 Viral infection, unspecified; R06.00 Dyspnea, unspecified; R42 Dizziness and giddiness; R51 Headache; I50.9 Heart failure, unspecified; I11.0 Hypertensive heart disease with heart failure; Z88.6 Allergy status to analgesic agent; Z86.73 Personal history of transient ischemic attack (TIA), and cerebral infarction without residual deficits; Z85.828 Personal history of other malignant neoplasm of skin; Z90.49 Acquired absence of other specified parts of digestive tract
CPT/HCPCS: 93005; 36591; 99285; 96360; 36415; 82553; 82550; 83690; 83735; 85025; 80053; 84484; 71045; 70450; 93010; J7040; A9270; J3490

== ENCOUNTER → 2017-07-08 | Outpatient (CLI) | payer MEDICARE, MEDICAID ==
--- NOTE | 2017-07-08 10:23 | RADIOLOGY REPORT (SQ) ---
EXAM DESCRIPTION: CHEST PA/LATERAL COMPLETED DATE/TIME: 07/08/2017 10:13 am REASON FOR STUDY: COUGH COMPARISON: PA chest 06/18/2017, Two-view chest 05/16/2017 EXAM PARAMETERS: NUMBER OF VIEWS: two views TECHNIQUE: Digital Frontal and Lateral radiographic views of the chest acquired. RADIATION DOSE: NA LIMITATIONS: none FINDINGS: LUNGS AND PLEURA: No opacities, masses or pneumothorax. No pleural effusion. MEDIASTINUM AND HILAR STRUCTURES: No masses or contour abnormalities. HEART AND VASCULAR STRUCTURES: Mild cardiomegaly BONES: No acute findings. HARDWARE: A right-sided jugular central line tip superior vena cava OTHER: No other significant finding. IMPRESSION: Mild cardiomegaly. No acute findings TECHNICAL DOCUMENTATION: JOB ID: [id number] [employer]- All Rights Reserved Reading location - IP/workstation name: [email or web address]
== END ==
LOC: OD 09:58
PROVIDERS: ATTEND Family Medicine
DX: R05 Cough (principal); I51.7 Cardiomegaly
CPT/HCPCS: 71046

== ENCOUNTER → 2017-08-06 | Outpatient (CLI) | payer MEDICARE, MEDICAID ==
--- NOTE | 2017-08-06 15:54 | RADIOLOGY REPORT (SQ) ---
EXAM DESCRIPTION: ACUTE ABDOMEN SERIES COMPLETED DATE/TIME: 08/06/2017 11:24 am REASON FOR STUDY: GENERALIZED ABDOMINAL PAIN R10.84 GENERALIZED ABDOMINAL PAIN COMPARISON: 12/23/2015 NUMBER OF VIEWS: Three views. TECHNIQUE: Frontal chest, supine abdomen and upright abdomen radiographic images acquired. LIMITATIONS: None. FINDINGS: CHEST: Lungs clear of infiltrates. FREE AIR: None. No abnormal gas collections. BOWEL GAS PATTERN: Nonobstructive pattern. No dilated loops or air fluid levels. CALCIFICATIONS: No suspicious calcifications. HARDWARE: None in the abdomen. SOFT TISSUES: No gross mass or suggestion of organomegaly. BONES: No acute fracture. No worrisome bone lesions. OTHER: No other significant finding. IMPRESSION: NO RADIOGRAPHIC EVIDENCE FOR ACUTE ABDOMINAL DISEASE. TECHNICAL DOCUMENTATION: JOB ID: [id number] [employer]- All Rights Reserved Reading location - IP/workstation name: [email or web address]
== END ==
LOC: OD 11:05
PROVIDERS: ATTEND Physician Assistant
DX: R10.84 Generalized abdominal pain (principal)
CPT/HCPCS: 74022

== ENCOUNTER → 2018-02-04 | Outpatient (CLI) | payer MEDICARE, MEDICAID ==
--- NOTE | 2018-02-05 07:37 | RADIOLOGY REPORT (SQ) ---
EXAM DESCRIPTION: MRI LT LOWER JOINT WITHOUT COMPLETED DATE/TIME: 02/04/2018 5:12 pm REASON FOR STUDY: PAIN IN LEFT KNEE M25.562 PAIN IN LEFT KNEE COMPARISON: None. TECHNIQUE: Leftknee images acquired and stored on PACS. Multiplanar images include fat sensitive se quences as T1, water sensitive sequences as FST2 or STIR, cartilage sensitive sequences as FSPD, and gradient echo sequences. LIMITATIONS: None. FINDINGS: JOINT AND BURSAE: Small effusion. 8 mm loose body present in the medial joint space at th e level of the patella. BONE CORTEX AND MARROW: No alteration of signal to suggest marrow replacement. No worrisome bone lesi ons. No occult fracture. ACL: Intact. No degeneration or ganglion cyst. PCL: Intact. MCL: Intact. Small amount of periligamentous edema adjacent to the MCL. LCL: Intact. No periligamentous edema or fluid. MEDIAL MENISCUS: Diffuse abnormal signal in the extruded medial meniscal midbody and posterior horn w ith complex degenerative tear in the posterior horn seen best on the sagittal images. LATERAL MENISCUS: No tears. No abnormal signal. MEDIAL COMPARTMENT: Mild arthrosis and small marginal osteophytes. LATERAL COMPARTMENT: Mild chondromalacia. . No bone bruises or reactive marrow edema. No osteophytes . PATELLA: Mild chondromalacia. No subchondral cysts. Medial and lateral retinacula intact. EXTENSOR MECHANISM: Intact. Quadriceps and patella tendons normal. SOFT TISSUES: Adjacent muscles and subcutaneous tissues normal. Normal flow void in popliteal artery and vein. OTHER: No other significant finding. IMPRESSION: Diffuse abnormal signal in the extruded medial meniscal midbody and posterior horn with complex degenerative tear in the posterior horn seen best on the sagittal images. Small amount of p eriligamentous edema adjacent to the MCL.. Small effusion. 8 mm loose body present in the medial domingo nt space at the level of the patella. TECHNICAL DOCUMENTATION: JOB ID: [id number] [place]-72 2010 [email or web address]- All Rights Reserved Reading location - IP/workstation name: [email or web address]
== END ==
LOC: RAD 15:35
PROVIDERS: ATTEND Orthopaedic Surgery Sports Medicine
DX: M25.562 Pain in left knee (principal); M23.42 Loose body in knee, left knee

== ENCOUNTER 2018-02-11 04:02 | Emergency (ER) | payer MEDICARE, MEDICAID ==
[2018-02-11] MEDS ORDERED: LORAZEPAM INJ 2 MG/1 ML VIAL IV ONE (04:51)
[2018-02-11] MEDS ORDERED: ACETAMINOPHEN 325 MG TABLET PO ONE (04:51)
[2018-02-11 04:54] LABS: ABSOLUTE LYMPHOCYTES (AUTO) 1.5 10^3/uL (0.5-4.7); ABSOLUTE MONOCYTES (AUTO) 0.3 10^3/uL (0.1-1.4); ABSOLUTE NEUT (AUTO) 3.7 10^3/uL (1.7-8.2); BASOPHILS % (AUTO) 0.5 % (0-2); EOSINOPHILS % (AUTO) 0.4 % (0-6); HEMATOCRIT 31.9 % (36.0-47.0); HEMOGLOBIN 10.6 g/dL (12.0-15.5); LYMPHOCYTES % (AUTO) 26.8 % (13-45); MEAN CORPUSCULAR HGB CONC 33.3 g/dL (32.0-36.0); MEAN CORPUSCULAR VOLUME 81 fl (80-97); MONOCYTES % (AUTO) 5.9 % (3-13); PLATELET COUNT 352 10^3/uL (150-450); RED BLOOD COUNT 3.92 10^6/uL (3.72-5.28); RED CELL DISTRIBUTION WIDTH 16.2 % (11.5-14.0); SEGMENTED NEUTROPHILS % (AUTO) 66.4 % (42-78); TOTAL CELLS COUNTED % (AUTO) 100 %; WHITE BLOOD COUNT 5.6 10^3/uL (4.0-10.5)
--- NOTE | 2018-02-11 05:49 | ER Document Report ---
ED General - General Chief Complaint: Chest Pain Stated Complaint: CHEST PAIN Time Seen by Provider: 02/11/18 04:09 Mode of Arrival: Ambulatory Information source: Patient TRAVEL OUTSIDE OF THE [place] IN LAST 30 DAYS: No - HPI Notes: Patient is a 52-year-old black female history of Crohn's disease and hypertension and sleep apnea and degenerative disc disease and osteo-arthritis presents to the emergency department with report that she has been using her sleep apnea CPAP machine regularly but 3 nights ago she awoke feeling a palpitation and short of breath and then became diaphoretic then noted she felt tingly all over and somewhat lightheaded with blurred vision. The patient reports a sensation went away, but since then she reports chest pain episodes largely occurring at rest with occasional dyspnea. Patient denies any nausea, vomiting, cough. The patient reports feeling an irregular heart rate which she describes feeling currently when I am discussing with the patient and she was noted to have a normal sinus rhythm without ectopy or arrhythmia. Patient recently described a cough and congestion to her regular practitioner who put her on Kourteny and prednisone for the last 4 days. The patient describes a diffuse paresthesia nonspecifically associated with chest discomfort. Currently she only reports palpitation with no chest pain. No fever, constipation, diarrhea, dysuria. Patient also describes a headache which is not the worst of her life. She denies any head injury or neck stiffness. - Related Data Allergies/Adverse Reactions: morphine [Morphine] Allergy (Mild, Verified 06/18/17 15:57) aspirin [Aspirin] Allergy (Verified 06/18/17 15:57) NSAIDS (Non-Steroidal Anti-Inflamma [Nsaids] Allergy (Verified 06/18/17 15:57) pregabalin [From Lyrica] Allergy (Verified 06/18/17 15:57) Past Medical History - General Information source: Patient - Social History Smoking Status: Never Smoker Chew tobacco use (# tins/day): No Frequency of alcohol use: None Drug Abuse: None Lives with: Alone Family History: Reviewed & Not Pertinent Patient has suicidal ideation: No Patient has homicidal ideation: No - Past Medical History Cardiac Medical History: Reports: Hx Congestive Heart Failure, Hx Heart Attack - "mild" 2006, Hx Hypertension Neurological Medical History: Reports: Hx Cerebrovascular Accident - Patient claims to have had a stroke in May 2012. Renal/ Medical History: Denies: Hx Peritoneal Dialysis Malignancy Medical History: Reports: Hx Skin Cancer GI Medical History: Reports: Hx Crohn's Disease, Hx Diverticulitis Past Surgical History: Reports: Hx Section - x5, Hx Cholecystectomy, Hx Herniorrhaphy, Hx Tonsillectomy - Immunizations Hx Diphtheria, Pertussis, Tetanus Vaccination: Yes - unsure of date Review of Systems - Review of Systems -: Yes All other systems reviewed and negative Physical Exam - Vital signs Vitals: Temp Resp BP Pulse Ox 98.2 F 12 154/84 H 98 02/11/18 04:23 02/11/18 04:23 02/11/18 04:23 02/11/18 04:23 - Notes Notes: PHYSICAL EXAMINATION: GENERAL: Well-appearing, well-nourished and in no acute distress. Very anxious. HEAD: Atraumatic, normocephalic. No temporal arterial tenderness. No TMJ joint tenderness. Anterior chambers are within normal limits. No sinus tenderness on palpation. EYES: Pupils equal round and reactive to light, extraocular movements intact, conjunctiva are normal. ENT: Nares patent, oropharynx clear without exudates. Moist mucous membranes. NECK: Normal range of motion, supple without lymphadenopathy LUNGS: Breath sounds clear to auscultation bilaterally and equal. No wheezes rales or rhonchi. HEART: Regular rate and rhythm without murmurs ABDOMEN: Soft, nontender, nondistended abdomen. No guarding, no rebound. No masses appreciated. Obese Female : deferred Musculoskeletal: Normal range of motion. No cyanosis. Trace bilat LE edema. No palp cord. Neg Homans. NEUROLOGICAL: Cranial nerves grossly intact. Normal speech, normal gait. Normal sensory, motor exams. PSYCH: normal affect. Anxious. SKIN: Warm, Dry, normal turgor, no rashes or lesions noted. Course - Re-evaluation Re-evalutation: 02/11/18 05:53 Patient was given Tylenol for headache. Patient described palpitation sensation but had no ectopy or tachycardia on the monitor at the time that she was describing the palpitations. I discussed with the patient the possibility of anxiety as a cause of her symptoms, and the patient finally agreed to taking ativan. CT head, CXR, labs, DDimer ordered. Must rule out PE, CVA, acute cardiac ischemia, anemia, electrolyte imbalance. Care turned over to Dr. Azevedo at 0600. - Vital Signs Vital signs: Temp Pulse Resp BP Pulse Ox 98.2 F 12 154/84 H 100 02/11/18 04:23 02/11/18 04:23 02/11/18 04:23 02/11/18 04:53 - Laboratory Result Diagrams: 02/11/18 04:15 02/11/18 04:15 Laboratory results interpreted by me: 02/11/18 04:15 Hgb 10.6 L Hct 31.9 L RDW 16.2 H - EKG Interpretation by Me EKG shows normal: Sinus rhythm Additional EKG results interpreted by me: 02/11/18 05:56 EKG as interpreted by me showed normal sinus rhythm heart rate of 80. There is no gross evidence for acute AK or ischemia noted. No change from previous EKG reviewed in the old record. Discharge - Discharge Clinical Impression: Palpitations, Anxiety, Paresthesia Chest pain Qualifiers: Chest pain type: other chest pain Qualified Code(s): R07.89 - Other chest pain ; R07.8 - Other chest pain Headache Qualifiers: Headache type: unspecified Headache chronicity pattern: acute headache Intractability: not intractable Qualified Code(s): R51 - Headache Referrals: ARIANNE HUBBARD MD [Primary Care Provider] - Follow up as needed
--- NOTE | 2018-02-11 06:06 | RADIOLOGY REPORT (SQ) ---
EXAM DESCRIPTION: XR CHEST 1 VIEW COMPLETED DATE/TME: 02/11/2018 04:47 CLINICAL HISTORY: 52 years Female, chest pain, palpitations COMPARISON: None. NUMBER OF VIEWS/TECHNIQUE: 1/AP FINDINGS: Adequate lung volume, clear parenchyma, normal cardiac silhouette, and intact bony thorax. Right jugular miniport catheter tip at the cavoatrial junction. IMPRESSION: No acute cardiopulmonary findings.
--- NOTE | 2018-02-11 06:14 | RADIOLOGY REPORT (SQ) ---
CLINICAL HISTORY: headache COMPARISON: None. 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 FINDINGS: There is no acute hemorrhage, mass effect or midline shift. Stone-white differentiation is preserved. There is no hydrocephalus. There is no significant volume loss for age. The calvarium is intact. There is a small bone island within the clivus.Orbits and globes are unremarkable. The paranasal sinuses are clear. Mastoid air cells are clear. IMPRESSION: No acute intracranial findings.
[2018-02-11 07:01] LABS: ALANINE AMINOTRANSFERASE 8 U/L (9-52); ALBUMIN 3.8 g/dL (3.5-5.0); ALKALINE PHOSPHATASE 64 U/L (38-126); ANION GAP 10 (5-19); ASPARTATE AMINO TRANSFERASE 15 U/L (14-36); BILIRUBIN,DIRECT 0.2 mg/dL (0.0-0.4); BILIRUBIN,TOTAL 0.5 mg/dL (0.2-1.3); BLOOD UREA NITROGEN 13 mg/dL (7-20); CALCIUM 9.3 mg/dL (8.4-10.2); CARBON DIOXIDE 29 mmol/L (22-30); CHLORIDE 105 mmol/L (98-107); GLUCOSE 98 mg/dL (75-110); POTASSIUM 4.3 mmol/L (3.6-5.0); SODIUM 144.2 mmol/L (137-145); TOTAL PROTEIN 7.3 g/dL (6.3-8.2)
[2018-02-11 07:23] VITALS: BP 142/82
--- NOTE | 2018-02-11 07:32 | EKG REPORT ---
SEVERITY:- NORMAL ECG - SINUS RHYTHM : Confirmed by: Elgin Torres MD 11-Feb-2018 07:31:21
== END 2018-02-11 07:40 | disposition home or self-care (01) ==
LOC: ER 04:02
DX: R00.2 Palpitations (principal); F41.9 Anxiety disorder, unspecified; R20.0 Anesthesia of skin; R07.89 Other chest pain; R51 Headache; K50.90 Crohn's disease, unspecified, without complications; R61 Generalized hyperhidrosis; R05 Cough; R09.81 Nasal congestion; Z79.899 Other long term (current) drug therapy; I10 Essential (primary) hypertension
CPT/HCPCS: 93005; 99285; 36415; 83735; 84443; 85025; 80053; 84484; 85379; 71045; 70450; 93010; A9270; J2060

== ENCOUNTER → 2018-03-03 | Outpatient (CLI) | payer MEDICARE, MEDICAID ==
[2018-03-03 10:45] LABS: ABSOLUTE LYMPHOCYTES (AUTO) 1.9 10^3/uL (0.5-4.7); ABSOLUTE MONOCYTES (AUTO) 0.3 10^3/uL (0.1-1.4); ABSOLUTE NEUT (AUTO) 2.6 10^3/uL (1.7-8.2); BASOPHILS % (AUTO) 0.3 % (0-2); EOSINOPHILS % (AUTO) 0.7 % (0-6); HEMATOCRIT 33.8 % (36.0-47.0); HEMOGLOBIN 11.3 g/dL (12.0-15.5); LYMPHOCYTES % (AUTO) 39.3 % (13-45); MEAN CORPUSCULAR HEMOGLOBIN 26.7 pg (27.0-33.4); MEAN CORPUSCULAR HGB CONC 33.3 g/dL (32.0-36.0); MEAN CORPUSCULAR VOLUME 80 fl (80-97); MONOCYTES % (AUTO) 5.3 % (3-13); PLATELET COUNT 348 10^3/uL (150-450); RED BLOOD COUNT 4.21 10^6/uL (3.72-5.28); RED CELL DISTRIBUTION WIDTH 16.8 % (11.5-14.0); SEGMENTED NEUTROPHILS % (AUTO) 54.4 % (42-78); TOTAL CELLS COUNTED % (AUTO) 100 %; WHITE BLOOD COUNT 4.9 10^3/uL (4.0-10.5)
[2018-03-03 11:02] LABS: ALANINE AMINOTRANSFERASE 18 U/L (9-52); ALKALINE PHOSPHATASE 82 U/L (38-126); ANION GAP 13 (5-19); ASPARTATE AMINO TRANSFERASE 17 U/L (14-36); BILIRUBIN,DIRECT 0.1 mg/dL (0.0-0.4); BILIRUBIN,TOTAL 0.4 mg/dL (0.2-1.3); BLOOD UREA NITROGEN 8 mg/dL (7-20); CALCIUM 9.5 mg/dL (8.4-10.2); CARBON DIOXIDE 27 mmol/L (22-30); CHLORIDE 105 mmol/L (98-107); GLUCOSE 83 mg/dL (75-110); POTASSIUM 4.1 mmol/L (3.6-5.0); SODIUM 144.6 mmol/L (137-145); TOTAL PROTEIN 7.6 g/dL (6.3-8.2)
== END ==
LOC: OD 09:38
PROVIDERS: ATTEND Physician Assistant
DX: M25.562 Pain in left knee (principal); I10 Essential (primary) hypertension; Z11.2 Encounter for screening for other bacterial diseases
CPT/HCPCS: 36415; 80053; 85025; 87070

== ENCOUNTER → 2018-04-14 | Outpatient (CLI) | payer MEDICARE, MEDICAID ==
--- NOTE | 2018-04-14 14:12 | WOMENS IMAGING REPORT ---
EXAM DESCRIPTION: 3D SCREENING MAMMO BILAT COMPLETED DATE/TIME: 04/14/2018 10:12 am REASON FOR STUDY: ROUTINE SCREENING MAMMOGRAM Z12.31 Z12.31 ENCNTR SCREEN MAMMOGRAM FOR MALIGNANT N EOPLASM OF HERI COMPARISON: 2015, 2016 TECHNIQUE: Standard craniocaudal and mediolateral oblique views of each breast recorded using digita l acquisition and breast tomosynthesis. LIMITATIONS: None. FINDINGS: No masses, calcifications or architectural distortion. No areas of suspicion. Read with the assistance of CAD. .[facility] - R2 Cenova Version 1.3 .[facility] - R2 Cenova Version 1.3 .[facility] - R2 Cenova Version 2.4 .[facility] [place]2 Cenova Version 2.4 .[facility] - R2 Airplane Electrician Version 9.2 IMPRESSION: NORMAL MAMMOGRAM. BIRADS 1. BREAST DENSITY: b. There are scattered areas of fibroglandular density. BIRAD: 1 NEGATIVE RECOMMENDATION: ROUTINE SCREENING COMMENT: The patient has been notified of the results by letter per MQSA requirements. Additional no tification policies are in place for contacting patient with suspicious or incomplete findings. Quality ID #[id number]: The [employer] recommends an annual screening mammogram for women aged 40 years or over. This facility utilizes a reminder system to ensure that all patients receive reminder letters, and/or direct phone calls for appointments. This includes reminders for routine scr eening mammograms, diagnostic mammograms, or other Breast Imaging Interventions when appropriate. Th is patient will be placed in the appropriate reminder system. The [employer] (ACR) has developed recommendations for screening MRI of the breast s in certain patient populations, to be used in conjunction with mammography. Breast MRI surveillanc e may be appropriate for women with more than 20% lifetime risk of developing breast cancer as deter mined by genetic testing, significant family history of the disease, or history of mantle radiation f or Hodgkins Disease. ACR Practice Guidelines 2008. DBT Technology DBT is a type of tomographic mammography. With conventional mammography, overlapping breast tissue ma y make lesions difficult to detect, even with good compression. DBT uses an x-ray tube that rotates a round the breast, taking images at different angles. These images are then combined to create thin sl ices of the breast that the radiologist can view as a 3D reconstruction. The Upfront Chromatography unit can perform full-field digital mammograms (2D imaging); or DBT (3D imaging); or both, in a combination mode that quickly performs both the mammogram and the tomosynthesis scan while the breast is still compressed. PQRS 6045F: Fluoroscopic imaging is not utilized for breast tomosynthesis. TECHNICAL DOCUMENTATION: FINDING NUMBER: (1) ASSESSMENT: (1) JOB ID: [id number] [employer]- All Rights Reserved Reading location - IP/workstation name: [email or web address] [email or web address]
== END ==
LOC: WI 10:41
PROVIDERS: ATTEND Physician Assistant
DX: Z12.31 Encounter for screening mammogram for malignant neoplasm of breast (principal)
CPT/HCPCS: 77063; 77067

== ENCOUNTER → 2018-09-18 | Outpatient (CLI) | payer MEDICARE, MEDICAID ==
[2018-09-18 11:27] LABS: ABSOLUTE EOSINOPHILS # (AUTO) 0.1 10^3/uL (0.0-0.6); ABSOLUTE LYMPHOCYTES (AUTO) 1.7 10^3/uL (0.5-4.7); ABSOLUTE MONOCYTES (AUTO) 0.3 10^3/uL (0.1-1.4); BASOPHILS % (AUTO) 0.7 % (0-2); EOSINOPHILS % (AUTO) 2.3 % (0-6); HEMATOCRIT 33.2 % (36.0-47.0); HEMOGLOBIN 10.9 g/dL (12.0-15.5); LYMPHOCYTES % (AUTO) 41.4 % (13-45); MEAN CORPUSCULAR HEMOGLOBIN 26.7 pg (27.0-33.4); MEAN CORPUSCULAR HGB CONC 32.9 g/dL (32.0-36.0); MEAN CORPUSCULAR VOLUME 81 fl (80-97); MONOCYTES % (AUTO) 7.1 % (3-13); PLATELET COUNT 340 10^3/uL (150-450); RED BLOOD COUNT 4.09 10^6/uL (3.72-5.28); SEGMENTED NEUTROPHILS % (AUTO) 48.5 % (42-78); TOTAL CELLS COUNTED % (AUTO) 100 %; WHITE BLOOD COUNT 4.2 10^3/uL (4.0-10.5)
[2018-09-18 11:52] LABS: ALANINE AMINOTRANSFERASE 21 U/L (9-52); ALKALINE PHOSPHATASE 72 U/L (38-126); ANION GAP 7 (5-19); ASPARTATE AMINO TRANSFERASE 18 U/L (14-36); BILIRUBIN,DIRECT 0.3 mg/dL (0.0-0.4); BILIRUBIN,TOTAL 0.5 mg/dL (0.2-1.3); BLOOD UREA NITROGEN 10 mg/dL (7-20); CALCIUM 9.4 mg/dL (8.4-10.2); CARBON DIOXIDE 28 mmol/L (22-30); CHLORIDE 106 mmol/L (98-107); GLUCOSE 82 mg/dL (75-110); LIPASE 69.5 U/L (23-300); POTASSIUM 4.2 mmol/L (3.6-5.0); SODIUM 140.9 mmol/L (137-145); TOTAL PROTEIN 7.7 g/dL (6.3-8.2)
== END ==
LOC: OD 10:22
PROVIDERS: ATTEND Physician Assistant
DX: K50.90 Crohn's disease, unspecified, without complications (principal)
CPT/HCPCS: 36415; 80053; 83690; 85025

== ENCOUNTER → 2019-02-19 | Outpatient (CLI) | payer MEDICARE, MEDICAID ==
[2019-02-19 11:18] LABS: ABSOLUTE EOSINOPHILS # (AUTO) 0.3 10^3/uL (0.0-0.6); ABSOLUTE LYMPHOCYTES (AUTO) 2.5 10^3/uL (0.5-4.7); ABSOLUTE MONOCYTES (AUTO) 0.4 10^3/uL (0.1-1.4); BASOPHILS % (AUTO) 0.5 % (0-2); EOSINOPHILS % (AUTO) 4.9 % (0-6); HEMATOCRIT 36.7 % (36.0-47.0); HEMOGLOBIN 12.3 g/dL (12.0-15.5); LYMPHOCYTES % (AUTO) 40.1 % (13-45); MEAN CORPUSCULAR HEMOGLOBIN 27.8 pg (27.0-33.4); MEAN CORPUSCULAR HGB CONC 33.5 g/dL (32.0-36.0); MEAN CORPUSCULAR VOLUME 83 fl (80-97); PLATELET COUNT 350 10^3/uL (150-450); RED BLOOD COUNT 4.43 10^6/uL (3.72-5.28); RED CELL DISTRIBUTION WIDTH 16.1 % (11.5-14.0); SEGMENTED NEUTROPHILS % (AUTO) 48.5 % (42-78); TOTAL CELLS COUNTED % (AUTO) 100 %; WHITE BLOOD COUNT 6.2 10^3/uL (4.0-10.5)
[2019-02-19 11:34] LABS: ALBUMIN 4.5 g/dL (3.5-5.0); ALKALINE PHOSPHATASE 79 U/L (38-126); ANION GAP 8 (5-19); ASPARTATE AMINO TRANSFERASE 22 U/L (14-36); BILIRUBIN,DIRECT 0.2 mg/dL (0.0-0.4); BILIRUBIN,TOTAL 0.5 mg/dL (0.2-1.3); BLOOD UREA NITROGEN 13 mg/dL (7-20); CALCIUM 9.9 mg/dL (8.4-10.2); CARBON DIOXIDE 28 mmol/L (22-30); CHLORIDE 107 mmol/L (98-107); GLUCOSE 88 mg/dL (75-110); POTASSIUM 4.6 mmol/L (3.6-5.0); TOTAL PROTEIN 8.5 g/dL (6.3-8.2)
== END ==
LOC: OD 10:00
PROVIDERS: ATTEND Physician Assistant
DX: R10.31 Right lower quadrant pain (principal)
CPT/HCPCS: 36415; 80053; 85025

== ENCOUNTER 2019-02-26 14:20 | Emergency (ER) | payer OTHER, MEDICARE, MEDICAID ==
[2019-02-26] MEDS ORDERED: HYDROCODONE/ACETAMINOPHEN 5-325 MG (6 TAB/ER DISP) PO PRN (14:29)
[2019-02-26] MEDS ORDERED: HYDROCODONE/ACETAMINOPHEN 5-325 MG TABLET PO ONE (14:29)
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
[2019-02-26 15:19] VITALS: BP 184/91
== END 2019-02-26 15:29 | disposition home or self-care (01) ==
LOC: ER 14:20
DX: M54.2 Cervicalgia (principal); M54.5 Low back pain; V49.40XA Driver injured in collision with unspecified motor vehicles in traffic accident, initial encounter; I10 Essential (primary) hypertension
CPT/HCPCS: 72125; 99283

== ENCOUNTER → 2019-06-12 | Outpatient (CLI) | payer MEDICARE, MEDICAID ==
--- NOTE | 2019-06-12 13:21 | WOMENS IMAGING REPORT ---
EXAM DESCRIPTION: 3D SCREENING MAMMO BILAT COMPLETED DATE/TIME: 06/12/2019 11:03 am REASON FOR STUDY: Z12.31 SCREENING MAMMO Z12.31 ENCNTR SCREEN MAMMOGRAM FOR MALIGNANT NEOPLASM OF B RE COMPARISON: [id number] EXAM PARAMETERS: Views: Standard craniocaudal and mediolateral oblique views of each breast recorded using digital acquisition and breast tomosynthesis. Read with the assistance of CAD. .[facility] - [employer] Therapeutic Onshore Diver Version 9.2 LIMITATIONS: None. FINDINGS: No suspicious masses, suspicious calcifications or architectural distortion. No areas of c oncern. IMPRESSION: NEGATIVE MAMMOGRAM. BIRADS 1. BREAST DENSITY: b. There are scattered areas of fibroglandular density. BIRAD: ASSESSMENT: 1 NEGATIVE RECOMMENDATION: ROUTINE SCREENING COMMENT: The patient has been notified of the results by letter per MQSA requirements. Additional no tification policies are in place for contacting patient with suspicious or incomplete findings. Quality ID #225: The [employer] [employer] recommends an annual screening mammogram for women aged 40 years or over. This facility utilizes a reminder system to ensure that all patients receive reminder letters, and/or direct phone calls for appointments. This includes reminders for routine scr eening mammograms, diagnostic mammograms, or other Breast Imaging Interventions when appropriate. Th is patient will be placed in the appropriate reminder system. TECHNICAL DOCUMENTATION: FINDING NUMBER: (1) ASSESSMENT: (1) JOB ID: [id number] 2010 [employer]- All Rights Reserved Reading location - IP/workstation name: [email or web address]
== END ==
LOC: WI 10:25
PROVIDERS: ATTEND Physician Assistant
DX: Z12.31 Encounter for screening mammogram for malignant neoplasm of breast (principal)
CPT/HCPCS: 77063; 77067

== ENCOUNTER → 2019-06-17 | Outpatient (CLI) | payer MEDICARE, MEDICAID ==
--- NOTE | 2019-06-17 10:12 | RADIOLOGY REPORT (SQ) ---
EXAM DESCRIPTION: LUMBAR SPINE COMPLETE COMPLETED DATE/TIME: 06/17/2019 9:53 am REASON FOR STUDY: PERSONAL HISTORY OF OTHER MEDICAL TREATMENT; THORACIC SPINE PAIN M51.17 INTVRT DI SC DISORDERS W RADICULOPATHY, LUMBOSACRAL RE M47.816 SPONDYLOSIS W/O MYELOPATHY OR RADICULOPATHY, [place] MBAR M54.6 PAIN IN THORACIC SPINE COMPARISON: None. NUMBER OF VIEWS: Five views including obliques. TECHNIQUE: AP, lateral, oblique, and sacral radiographic images acquired of the lumbar spine. LIMITATIONS: None. FINDINGS: MINERALIZATION: Normal. SEGMENTATION: Normal. No transitional anatomy. ALIGNMENT: Normal. VERTEBRAE: Maintained height. No fracture or worrisome bone lesion. DISCS: Preserved height. No significant osteophytes or end plate irregularity. POSTERIOR ELEMENTS: Pedicles and facets are intact. No pars defect or posterior arch defects. HARDWARE: None in the spine. PARASPINAL SOFT TISSUES: Normal. PELVIS: Intact as visualized. No fractures or worrisome bone lesions. SI joints intact. OTHER: No other significant finding. IMPRESSION: No acute findings in the lumbar spine. TECHNICAL DOCUMENTATION: JOB ID: [id number] 2010 [employer]- All Rights Reserved Reading location - IP/workstation name: [email or web address]
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
== END ==
LOC: OD 09:27
PROVIDERS: ATTEND Physician Assistant
DX: M51.17 Intervertebral disc disorders with radiculopathy, lumbosacral region (principal); M47.816 Spondylosis without myelopathy or radiculopathy, lumbar region
CPT/HCPCS: 72070; 72110

== ENCOUNTER → 2019-10-23 | Outpatient (CLI) | payer MEDICARE, MEDICAID ==
--- NOTE | 2019-10-24 09:56 | RADIOLOGY REPORT (SQ) ---
EXAM DESCRIPTION: MRI RT LOWER JOINT WITHOUT IMAGES COMPLETED DATE/TIME: 10/23/2019 11:33 am REASON FOR STUDY: PAIN IN RIGHT KNEE M25.561 PAIN IN RIGHT KNEE COMPARISON: None. TECHNIQUE: Rightknee images acquired and stored on PACS. Multiplanar images include fat sensitive s equences as T1, water sensitive sequences as FST2 or STIR, cartilage sensitive sequences as FSPD, and gradient echo sequences. LIMITATIONS: None. FINDINGS: JOINT AND BURSAE: No effusion. BONE CORTEX AND MARROW: No alteration of signal to suggest marrow replacement. No worrisome bone lesi ons. No occult fracture. ACL: Intact. No degeneration or ganglion cyst. PCL: Intact. MCL: Intact. No periligamentous edema or fluid. LCL: Intact. No periligamentous edema or fluid. MEDIAL MENISCUS: Extensive degenerative tear with a vertical radial and flap component. Centrally th ere is a 1.3 cm communicating para meniscal cyst. LATERAL MENISCUS: No tears. No abnormal signal. MEDIAL COMPARTMENT: Generalized degenerative changes with cartilaginous loss and medial osteophytes. Mild reactive edema. LATERAL COMPARTMENT: Cartilage preserved. No bone bruises or reactive marrow edema. No osteophytes. PATELLA: Chondromalacia patella. Cartilaginous loss of the trochlear cartilage. Patellofemoral oste ophytes. EXTENSOR MECHANISM: Intact. Quadriceps and patella tendons normal. SOFT TISSUES: Adjacent muscles and subcutaneous tissues normal. Normal flow void in popliteal artery and vein. OTHER: No other significant finding. IMPRESSION: Extensive tear of the medial meniscus with a central para meniscal cyst. Associated mar ked degenerative changes the medial compartment. Patellofemoral degenerative changes. TECHNICAL DOCUMENTATION: JOB ID: [id number] 2010 [employer]- All Rights Reserved Reading location - IP/workstation name: [email or web address]
== END ==
LOC: RAD 10:55
PROVIDERS: ATTEND Orthopaedic Surgery Sports Medicine
DX: S83.241A Other tear of medial meniscus, current injury, right knee, initial encounter (principal); X58.XXXA Exposure to other specified factors, initial encounter; M22.41 Chondromalacia patellae, right knee; M25.561 Pain in right knee

== ENCOUNTER 2020-01-18 10:03 | Inpatient (IN) | payer MEDICARE, MEDICAID ==
[2020-01-18 11:22] LABS: ABSOLUTE EOSINOPHILS # (AUTO) 0.4 10^3/uL (0.0-0.6); ABSOLUTE LYMPHOCYTES (AUTO) 1.5 10^3/uL (0.5-4.7); ABSOLUTE MONOCYTES (AUTO) 0.3 10^3/uL (0.1-1.4); ABSOLUTE NEUT (AUTO) 3.2 10^3/uL (1.7-8.2); BASOPHILS % (AUTO) 0.5 % (0-2); EOSINOPHILS % (AUTO) 7.6 % (0-6); HEMATOCRIT 35.9 % (36.0-47.0); LYMPHOCYTES % (AUTO) 27.3 % (13-45); MEAN CORPUSCULAR HEMOGLOBIN 28.3 pg (27.0-33.4); MEAN CORPUSCULAR HGB CONC 33.3 g/dL (32.0-36.0); MEAN CORPUSCULAR VOLUME 85 fl (80-97); MONOCYTES % (AUTO) 5.5 % (3-13); PLATELET COUNT 368 10^3/uL (150-450); RED BLOOD COUNT 4.24 10^6/uL (3.72-5.28); RED CELL DISTRIBUTION WIDTH 15.4 % (11.5-14.0); SEGMENTED NEUTROPHILS % (AUTO) 59.1 % (42-78); TOTAL CELLS COUNTED % (AUTO) 100 %; WHITE BLOOD COUNT 5.4 10^3/uL (4.0-10.5)
[2020-01-18] MEDS ORDERED: NORMAL SALINE 1000 ML 1,000 ML IV ONE (11:30)
[2020-01-18] MEDS ORDERED: HYDROMORPHONE HCL INJ/PF 2 MG/ML AMPULE IV ONE ×2 (11:30→14:23)
--- NOTE | 2020-01-18 11:43 | ER Document Report ---
ED General - General Chief Complaint: Near Syncope Stated Complaint: WEAKNESS/POSSIBLE SYNCOPE Time Seen by Provider: 01/18/20 10:54 TRAVEL OUTSIDE OF THE [place] IN LAST 30 DAYS: No - HPI Notes: Patient is a 54-year-old female with a past medical history of Crohn's disease who presents with weakness and syncope. Patient states that she has been feeling fatigued and has had a headache for several days. She states this normally happens when her Crohn's symptoms are acting up. She is currently on Stelara which she started in December. Patient states that for the past couple days, she has had right lower quadrant abdominal pain. She is unsure if this is her Crohn's flaring up. She denies any bloody stool. She denies any diarrhea. No nausea or vomiting. No chest pain. Patient states that around 2 AM, she began feeling worsening weakness. She went to her doctor's office today. While she was getting vitals checked, patient had a syncopal episode. Patient does not remember feeling pre-syncopal. Her doctor referred her to the ED. Patient also mentions that she had red bumps on her left thigh. She recently was treated for this with antibiotics and a steroid cream by her PCP. They attributed this to a reaction to her Stelara. Patient states that the bumps on her leg improved but now she has bumps on her left arm and right shoulder that feels warm and are erythemic. Denies any fevers or chills. No cough or cold symptoms. - Related Data Allergies/Adverse Reactions: morphine [Morphine] Allergy (Mild, Verified 06/18/17 15:57) aspirin [Aspirin] Allergy (Verified 06/18/17 15:57) NSAIDS (Non-Steroidal Anti-Inflamma [Nsaids] Allergy (Verified 06/18/17 15:57) pregabalin [From Lyrica] Allergy (Verified 06/18/17 15:57) Home Medications: Amlodipine, Oxycodone, Losartin, Tylenol, Flonase, Zofran Past Medical History - General Information source: Patient, Relative - Social History Smoking Status: Never Smoker Chew tobacco use (# tins/day): No Frequency of alcohol use: None Drug Abuse: None Family History: Reviewed & Not Pertinent - Past Medical History Cardiac Medical History: Reports: Hx Congestive Heart Failure, Hx Heart Attack - "mild" 2006, Hx Hypertension Neurological Medical History: Reports: Hx Cerebrovascular Accident - Patient claims to have had a stroke in May 2012.. Denies: Hx Parkinson's Disease Renal/ Medical History: Denies: Hx Peritoneal Dialysis Malignancy Medical History: Reports: Hx Skin Cancer GI Medical History: Reports: Hx Crohn's Disease, Hx Diverticulitis Musculoskeletal Medical History: Denies Hx Systemic Lupus Erythematosus Past Surgical History: Reports: Hx Section - x5, Hx Cholecystectomy, Hx Herniorrhaphy, Hx Tonsillectomy - Immunizations Hx Diphtheria, Pertussis, Tetanus Vaccination: Yes - unsure of date Review of Systems - Review of Systems Notes: CONSTITUTIONAL: No fever. Positive for fatigue. SKIN: Positive for rash on left arm and right shoulder. HENT: No congestion, ear pain, or sore throat. EYES: No recent vision problems or eye pain. ENDOCRINE: No polyuria or polydipsia. CARDIOVASCULAR: No chest pain or edema. RESPIRATORY: No cough, shortness of breath, congestion, or wheezing. GASTROINTESTINAL: Positive for abdominal pain. GENITOURINARY: No dysuria. MUSCULOSKELETAL: No joint pain or swelling. LYMPHATIC: No swollen glands. NEUROLOGIC: No seizures. Positive for headache. Positive for syncopal epis ode. HEMATOLOGIC: No unusual bruising or bleeding. PSYCHIATRIC: No depression or anxiety. Physical Exam - Vital signs Vitals: Temp Resp BP Pulse Ox 98.6 F 23 H 164/88 H 98 01/18/20 10:35 01/18/20 10:35 01/18/20 10:35 01/18/20 10:35 - Notes Notes: VITAL SIGNS: Within normal limits. GENERAL: No acute distress, non-toxic appearance. HEAD: Normal with no signs of head trauma. EYES: EOMI, conjunctiva normal, no discharge. EARS: Hearing grossly intact. NOSE: Normal. NECK: Normal range of motion, no tenderness, supple, no lymphadenopathy, No adenopathy, no JVD. CHEST: Clear breath sounds bilaterally. No wheezes, rales, or rhonchi. CARDIAC: Regular rate and rhythm. S1 and S2, without murmurs, gallops, or rubs. VASCULAR: No Edema. Peripheral pulses normal and equal in all extremities. ABDOMEN: Abdomen is soft. Discomfort to palpation of right lower quadrant. GENITOURINARY: Normal, No tenderness LYMPATHTIC: No lymphadenopathy noted. MUSCULOSKELETAL: Good range of motion of all major joints. Extremities without clubbing, cyanosis or edema. NEUROLOGICAL: Alert and oriented x 3. No focal sensory or strength deficits. Speech normal. Follows commands appropriately. PSYCHIATRIC: Normal Affect, judgement and mood. SKIN: 2 raised erythemic bumps on left posterior forearm. Raised erythemic bump on right posterior shoulder. Course - Re-evaluation Re-evalutation: 01/18/20 11:44 Patient is describing right lower quadrant abdominal pain. I am unsure if this is due to her Crohn's or an appendicitis. We will obtain a CT scan. I will also obtain a cardiac work-up due to her syncope. I discussed the headache with the patient. She states that she normally has headaches with her Crohn's symptoms. I discussed CT scan of head and patient states that she did want this done. Patient's work-up is unremarkable. We did try to walk her but patient states she feels too fatigued. I discussed with her PCP, Dr. Dinero, who will admit the patient for the syncopal episode as she had no prodrome before. Patient is agreeable to this. 01/18/20 18:35 - Vital Signs Vital signs: Temp Pulse Resp BP Pulse Ox 98.6 F 16 145/73 H 98 01/18/20 10:35 01/18/20 16:00 01/18/20 13:52 01/18/20 16:00 - Laboratory Result Diagrams: 01/18/20 10:59 01/18/20 10:59 Laboratory results interpreted by me: 01/18/20 01/18/20 10:59 10:59 Hct 35.9 L RDW 15.4 H Eos % (Auto) 7.6 H ESR 50 H - Diagnostic Test Radiology reviewed: Image reviewed, Reports reviewed - EKG Interpretation by Me EKG shows normal: Sinus rhythm Rate: Normal When compared to previous EKG there are: No significant change Additional EKG results interpreted by me: 01/18/20 12:35 AG interpreted by me. Sinus rhythm at a rate of 57. QTc 417. No acute ST changes. EKG is similar to previous. Discharge - Discharge Clinical Impression: Weakness Syncope Qualifiers: Syncope type: unspecified Qualified Code(s): R55 - Syncope and collapse Abdominal pain Qualifiers: Abdominal location: right lower quadrant Qualified Code(s): R10.31 - Right lower quadrant pain Headache Qualifiers: Headache type: unspecified Headache chronicity pattern: acute headache Intractability: not intractable Qualified Code(s): R51.9 - Headache, unspecified Condition: Stable Disposition: ADMITTED INPATIENT Admitting Provider: Dinero Unit Admitted: [facility]
[2020-01-18 11:44] LABS: ALBUMIN 4.2 g/dL (3.5-5.0); ALKALINE PHOSPHATASE 70 U/L (38-126); ANION GAP 9 (5-19); ASPARTATE AMINO TRANSFERASE 28 U/L (14-36); BILIRUBIN,DIRECT 0.3 mg/dL (0.0-0.4); BILIRUBIN,TOTAL 0.9 mg/dL (0.2-1.3); BLOOD UREA NITROGEN 8 mg/dL (7-20); CALCIUM 9.1 mg/dL (8.4-10.2); CARBON DIOXIDE 27 mmol/L (22-30); CHLORIDE 105 mmol/L (98-107); CREATINE KINASE 91 U/L (30-135); GLUCOSE 89 mg/dL (75-110); POTASSIUM 4.5 mmol/L (3.6-5.0); TOTAL PROTEIN 7.8 g/dL (6.3-8.2)
[2020-01-18 11:56] LABS: CREATINE KINASE MB 0.45 ng/mL (<4.55)
[2020-01-18 11:58] LABS: TROPONIN I < 0.012 ng/mL
[2020-01-18 11:59] LABS: APPEARANCE,URINE CLEAR; BILIRUBIN,URINE NEGATIVE (NEGATIVE); COLOR,URINE STRAW; GLUCOSE, URINE NEGATIVE (NEGATIVE); KETONES,URINE NEGATIVE (NEGATIVE); LEUKOCYTE ESTERASE,URINE NEGATIVE (NEGATIVE); NITRITE,URINE NEGATIVE (NEGATIVE); PROTEIN,URINE NEGATIVE (NEGATIVE); UROBILINOGEN,URINE NEGATIVE mg/dL (<2.0)
--- NOTE | 2020-01-18 12:12 | RADIOLOGY REPORT (SQ) ---
EXAM DESCRIPTION: CHEST SINGLE VIEW IMAGES COMPLETED DATE/TIME: 01/18/2020 11:40 am REASON FOR STUDY: weakness COMPARISON: 02/11/2018 EXAM PARAMETERS: NUMBER OF VIEWS: One view. TECHNIQUE: Single frontal radiographic view of the chest acquired. RADIATION DOSE: NA LIMITATIONS: None. FINDINGS: LUNGS AND PLEURA: No opacities, masses or pneumothorax. No pleural effusion. MEDIASTINUM AND HILAR STRUCTURES: No masses. Contour normal. HEART AND VASCULAR STRUCTURES: Heart normal in size. Normal vasculature. BONES: No acute findings. HARDWARE: None in the chest. OTHER: No other significant finding. IMPRESSION: NO ACUTE RADIOGRAPHIC FINDING IN THE CHEST. TECHNICAL DOCUMENTATION: JOB ID: [id number] 2010 [employer]- All Rights Reserved Reading location - IP/workstation name: [email or web address]
--- NOTE | 2020-01-18 14:21 | RADIOLOGY REPORT (SQ) ---
EXAM DESCRIPTION: CT HEAD WITHOUT IMAGES COMPLETED DATE/TIME: 01/18/2020 2:13 pm REASON FOR STUDY: syncope, headache COMPARISON: None. TECHNIQUE: Axial images acquired through the brain without intravenous contrast. Images reviewed wi th bone, brain and subdural windows. Additional sagittal and coronal reconstructions were generated. Images stored on PACS. All CT scanners at this facility use dose modulation, iterative reconstruction, and/or weight based d osing when appropriate to reduce radiation dose to as low as reasonably achievable (ALARA). [facility]: Dose Right [facility]: CareDose [facility]: Dose Right [facility]: Teradose 4D [facility]: Smart Connectbeam RADIATION DOSE: CT Rad equipment meets quality standard of care and radiation dose reduction techniq ues were employed. CTDIvol: 53.2 mGy. DLP: 1044 mGy-cm. mGy. LIMITATIONS: Small amount of motion artifact. FINDINGS: VENTRICLES: Normal size and contour. CEREBRUM: No masses. No hemorrhage. No midline shift. No evidence for acute infarction. Normal gra y/white matter differentiation. No areas of low density in the white matter. CEREBELLUM: No masses. No hemorrhage. No alteration of density. No evidence for acute infarction. EXTRAAXIAL SPACES: No fluid collections. No masses. ORBITS AND GLOBE: No intra- or extraconal masses. Normal contour of globe without masses. CALVARIUM: No fracture. PARANASAL SINUSES: No fluid or mucosal thickening. SOFT TISSUES: No mass or hematoma. OTHER: No other significant finding. IMPRESSION: SLIGHTLY LIMITED STUDY. NORMAL BRAIN CT WITHOUT CONTRAST. EVIDENCE OF ACUTE STROKE: NO. COMMENT: Quality ID # [id number]: Final reports with documentation of one or more dose reduction techniques (e.g., Automated exposure control, adjustment of the mA and/or kV according to patient size, use of iterative reconstruction technique) TECHNICAL DOCUMENTATION: JOB ID: [id number] 2010 [employer]- All Rights Reserved Reading location - IP/workstation name: [email or web address]
--- NOTE | 2020-01-18 14:43 | RADIOLOGY REPORT (SQ) ---
EXAM DESCRIPTION: CT ABD/PELVIS WITH IV ONLY IMAGES COMPLETED DATE/TIME: 01/18/2020 2:13 pm REASON FOR STUDY: RLQ abdominal pain COMPARISON: None. TECHNIQUE: CT scan of the abdomen and pelvis performed using helical scanning technique with dynamic intravenous contrast injection. No oral contrast. Images reviewed with lung, soft tissue, and bone windows. Reconstructed coronal and sagittal MPR images reviewed. Delayed images for evaluation of the urinary system also acquired. All images stored on PACS. All CT scanners at this facility use dose modulation, iterative reconstruction, and/or weight based d osing when appropriate to reduce radiation dose to as low as reasonably achievable (ALARA). [facility]: Dose Right [facility]: CareDose [facility]: Dose Right [facility]: Teradose 4D [facility]: GnamGnam CONTRAST TYPE AND DOSE: contrast/concentration: Isovue 350.00 mmol/ml; Total Contrast Delivered: 100 .0 ml; Total Saline Delivered: 37.0 ml RENAL FUNCTION: BUN 8 creatinine 0.72 RADIATION DOSE: CT Rad equipment meets quality standard of care and radiation dose reduction techniq ues were employed. CTDIvol: 9.6 - 14.4 mGy. DLP: 1289 mGy-cm.. LIMITATIONS: None. FINDINGS: LOWER CHEST: No significant findings. No nodules or infiltrates. LIVER: Normal size. No masses. No dilated ducts. SPLEEN: Normal size. No focal lesions. PANCREAS: No masses. No significant calcifications. No adjacent inflammation or peripancreatic fluid collections. Pancreatic duct not dilated. GALLBLADDER: Surgically absent. ADRENAL GLANDS: No significant masses or asymmetry. RIGHT KIDNEY AND URETER: No solid masses. No significant calcifications. No hydronephrosis or hyd roureter. LEFT KIDNEY AND URETER: No solid masses. No significant calcifications. No hydronephrosis or hydr oureter. AORTA AND VESSELS: No aneurysm. No dissection. Renal arteries, SMA, celiac without stenosis. RETROPERITONEUM: No retroperitoneal adenopathy, hemorrhage or masses. BOWEL AND PERITONEAL CAVITY: Mild diverticulosis coli. No associated inflammation. No obvious bowel mass. APPENDIX: Surgically absent. PELVIS: No mass. No free fluid. Normal bladder. ABDOMINAL WALL: No masses. No hernias. BONES: No significant or acute findings. OTHER: No other significant finding. IMPRESSION: Mild diverticulosis coli. No acute finding in the abdomen or pelvis. TECHNICAL DOCUMENTATION: JOB ID: [id number] Quality ID # [id number]: Final reports with documentation of one or more dose reduction techniques (e.g., Au tomated exposure control, adjustment of the mA and/or kV according to patient size, use of iterative reconstruction technique) 2010 [employer]- All Rights Reserved Reading location - IP/workstation name: [email or web address]
[2020-01-18] MEDS ORDERED: ACETAMINOPHEN 325 MG TABLET PO PRN (15:56)
[2020-01-18] MEDS ORDERED: ONDANSETRON HCL INJ/PF 4 MG/2 ML SDV IV PRN (15:56)
[2020-01-18] MEDS ORDERED: NORMAL SALINE 1000 ML 1,000 ML IV PRN (15:56)
[2020-01-18] MEDS: PANTOPRAZOLE SODIUM 40 MG TABLET.DR PO SCH (18:20)
[2020-01-18] MEDS: OXYCODONE-ACETAMINOPHEN 5-325 MG TABLET PO PRN (18:21)
--- NOTE | 2020-01-18 18:43 | PDOC H&P ---
History of Present Illness Admission Date/PCP: ARIANNE HUBBARD MD Patient complains of: Syncopal episode History of Present Illness: KEON GODINEZ is a 54 year old female tient is a 54-year-old female who presented today for a same-day urgent visit with complaints of feeling very weak and "like something was wrong." While getting vitals patient had a syncopal episode. She was then unresponsive to commands. EMS was called and patient was taken to [facility]. Before leaving patient did become more coherent, told me that she did take amoxicillin prescription she had at home over the weekend for return of skin lesions on her arms. She has recently been followed for urticaria-like lesions and was seen last week as a follow-up of cellulitis. 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 She been treated for the cellulitis on her left lower leg with Keflex, mupirocin and Benadryl an area had resolved at follow-up last week. She had no pain or fever at that time. She is followed by GI for Crohn's disease, has regular follow-up. Now on Stelara. She says she called them when these skin lesions were initially seen and was told likely not a reaction to Stelara. She has only been on this medication for about 6 weeks. In the emergency department patient CT of the head CT abdomen pelvis is all negative for any acute finding Blood work is all stable Patient is currently followed Dr. John for the rheumatoid arthritis and chronic pain patient also used to see a pain management for chronic neck pain back pain Also see a GI Dr. Pastor at [place] At this point decided to admit in the hospital for further evaluations Past Medical History Cardiac Medical History: Reports: Congestive Heart Failure, Myocardial Infarction - "mild" 2006, Hypertension Malignancy Medical History: Reports: Skin Cancer GI Medical History: Reports: Crohn's Disease, Diverticulitis, Gastroesophageal Reflux Disease Musculoskeltal Medical History: Reports: Arthritis Psychiatric Medical History: Reports: Depression Past Surgical History Past Surgical History: Reports: Section - x5, Cholecystectomy, Herniorrhaphy, Tonsillectomy Social History Information Source: Patient Smoking Status: Never Smoker Electronic Cigarette use?: No Frequency of Alcohol Use: None Hx Recreational Drug Use: No Hx Prescription Drug Abuse: No Family History Family History: Reviewed & Not Pertinent Parental Family History Reviewed: Yes Children Family History Reviewed: Yes Sibling(s) Family History Reviewed.: Yes Medication/Allergy Home Medications: Amlodipine Besylate [Norvasc 5 mg Tablet] 5 mg PO DAILY 01/21/16 Diclofenac Sodium [Voltaren] 100 gm TP DAILY 01/21/16 Infliximab [Remicade Inj 100 mg Vial] 100 mg IV ASDIR PRN 01/21/16 Ondansetron HCl 4 mg PO DAILY PRN 01/21/16 Pantoprazole Sodium [Protonix] 40 mg PO DAILY 01/21/16 Valsartan [Diovan] 160 mg PO DAILY 01/21/16 Cyclobenzaprine HCl [Flexeril 5 mg Tablet] 5 mg PO TIDP PRN #15 tablet 04/01/17 Ergocalciferol (Vitamin D2) [Vitamin D2] 50,000 unit PO ASDIR PRN 04/01/17 Mometasone Furoate [Nasonex] 2 inh NS DAILY 04/01/17 Oxycodone HCl 15 mg PO Q6H PRN 04/01/17 Prednisone 2.5 mg PO DAILY 04/01/17 Prednisone 5 mg PO ASDIR PRN #32 tablet 04/01/17 Prochlorperazine Maleate [Compazine 10 mg Tablet] 10 mg PO Q6 #30 tablet 06/18/17 Methocarbamol [Robaxin 750 mg Tablet] 750 mg PO TID PRN #10 tablet 02/26/19 Allergies/Adverse Reactions: morphine [Morphine] Allergy (Mild, Verified 06/18/17 15:57) aspirin [Aspirin] Allergy (Verified 06/18/17 15:57) NSAIDS (Non-Steroidal Anti-Inflamma [Nsaids] Allergy (Verified 06/18/17 15:57) pregabalin [From Lyrica] Allergy (Verified 06/18/17 15:57) Review of Systems Constitutional: PRESENT: fatigue, headache(s), weakness. ABSENT: chills, fever(s), weight gain, weight loss Eyes: ABSENT: visual disturbances Ears: ABSENT: hearing changes Cardiovascular: ABSENT: chest pain, dyspnea on exertion, edema, orthropnea, palpitations Respiratory: ABSENT: cough, hemoptysis Gastrointestinal: PRESENT: abdominal pain. ABSENT: constipation, diarrhea, hematemesis, hematochezia, nausea, vomiting Genitourinary: ABSENT: dysuria, hematuria Musculoskeletal: ABSENT: joint swelling Integumentary: ABSENT: rash, wounds Neurological: ABSENT: abnormal gait, abnormal speech, confusion, dizziness, focal weakness, syncope Psychiatric: ABSENT: anxiety, depression, homidical ideation, suicidal ideation Endocrine: ABSENT: cold intolerance, heat intolerance, menstrual abnormalities, polydipsia, polyuria Hematologic/Lymphatic: ABSENT: easy bleeding, easy bruising, lymphadenopathy Physical Exam Vital Signs: Temp Pulse Resp BP Pulse Ox 98.6 F 17 145/73 H 99 01/18/20 10:35 01/18/20 14:14 01/18/20 13:52 01/18/20 14:14 Intake & Output 01/17/20 01/18/20 01/19/20 06:59 06:59 06:59 Intake Total 1000 Balance 1000 Weight 106.6 kg General appearance: PRESENT: no acute distress, well-developed, well-nourished Head exam: PRESENT: atraumatic, normocephalic Eye exam: PRESENT: conjunctiva pink, EOMI, PERRLA. ABSENT: scleral icterus Ear exam: PRESENT: normal external ear exam Mouth exam: PRESENT: moist, tongue midline Neck exam: PRESENT: full ROM. ABSENT: carotid bruit, JVD, lymphadenopathy, thyromegaly Respiratory exam: PRESENT: clear to auscultation anjum Cardiovascular exam: PRESENT: RRR. ABSENT: diastolic murmur, rubs, systolic murmur Pulses: PRESENT: normal dorsalis pedis pul, +2 pedal pulses bilateral Vascular exam: PRESENT: normal capillary refill GI/Abdominal exam: PRESENT: normal bowel sounds, soft. ABSENT: distended, guarding, mass, organolmegaly, rebound, tenderness Rectal exam: PRESENT: deferred Extremities exam: ABSENT: pedal edema Neurological exam: PRESENT: alert, awake, oriented to person, oriented to place, oriented to time, oriented to situation, CN II-XII grossly intact. ABSENT: motor sensory deficit Psychiatric exam: PRESENT: appropriate affect, normal mood. ABSENT: homicidal ideation, suicidal ideation Skin exam: PRESENT: dry, intact, warm. ABSENT: cyanosis, rash Results Laboratory Results: 01/18/20 10:59 01/18/20 10:59 01/18/20 01/18/20 01/18/20 10:35 10:59 10:59 WBC 5.4 RBC 4.24 Hgb 12.0 Hct 35.9 L MCV 85 MCH 28.3 MCHC 33.3 RDW 15.4 H Plt Count 368 Seg Neutrophils % 59.1 Sodium 141.1 Potassium 4.5 Chloride 105 Carbon Dioxide 27 Anion Gap 9 BUN 8 Creatinine 0.72 Est GFR ( Amer) > 60 Glucose 89 Calcium 9.1 Total Bilirubin 0.9 AST 28 Alkaline Phosphatase 70 Total Protein 7.8 Albumin 4.2 Urine Color STRAW Urine Appearance CLEAR Urine pH 7.0 Ur Specific [place] 1.010 Urine Protein NEGATIVE Urine Glucose (UA) NEGATIVE Urine Ketones NEGATIVE Urine Blood NEGATIVE Urine Nitrite NEGATIVE Ur Leukocyte Esterase NEGATIVE Urine WBC (Auto) 1 Urine RBC (Auto) 1 01/18/20 01/18/20 10:59 10:59 Creatine Kinase 91 CK-MB (CK-2) 0.45 Troponin I < 0.012 Impressions: Chest X-Ray 01/18/20 11:00 IMPRESSION: NO ACUTE RADIOGRAPHIC FINDING IN THE CHEST. Head CT 01/18/20 11:27 IMPRESSION: SLIGHTLY LIMITED STUDY. NORMAL BRAIN CT WITHOUT CONTRAST. EVIDENCE OF ACUTE STROKE: NO. Abdomen/Pelvis CT 01/18/20 11:28 IMPRESSION: Mild diverticulosis coli. No acute finding in the abdomen or pelvis. Assessment & Plan - Diagnosis (1) Syncope Qualifiers: Syncope type: unspecified Qualified Code(s): R55 - Syncope and collapse Is this a current diagnosis for this admission?: Yes Plan: Admit the patient in IMCU Get the MRI of the head We will get the cardiology consult (2) Crohn's disease Qualifiers: Gastrointestinal tract location: unspecified location Digestive disease complication type: unspecified complication Qualified Code(s): K50.919 - Crohn's disease, unspecified, with unspecified complications Is this a current diagnosis for this admission?: Yes Plan: Continues the current medications we will hold the Stelara (3) Rheumatoid arthritis Qualifiers: Rheumatoid arthritis location: multiple sites Is this a current diagnosis for this admission?: Yes Plan: Patient is currently follow with the Dr. John (4) Hypertension Qualifiers: Hypertension type: essential hypertension Qualified Code(s): I10 - Essential (primary) hypertension Is this a current diagnosis for this admission?: Yes Plan: Currently all stable (5) Chronic pain syndrome Is this a current diagnosis for this admission?: Yes Plan: We will start the patient on a Percocet patient used to take in the past per pain management (6) Migraine headache Qualifiers: Migraine type: without aura Intractability: not intractable Is this a current diagnosis for this admission?: Yes (7) Polyclonal gammopathy Is this a current diagnosis for this admission?: Yes Plan: Continues on aspirin and statin (8) History of cerebrovascular disease Is this a current diagnosis for this admission?: Yes (9) Major depression Qualifiers: Major depression recurrence: recurrent Psychotic features: without psychotic features Is this a current diagnosis for this admission?: Yes - Time Time Spent: 50 to 70 Minutes Medications reviewed and adjusted accordingly: Yes Anticipated Discharge Disposition: Home, Self Care Anticipated Discharge Timeframe: within 48 hours - Inpatient Certification Based on my medical assessment, after consideration of the patient's comorbidities, presenting symptoms, or acuity I expect that the services needed warrant INPATIENT care.: Yes I certify that my determination is in accordance with my understanding of Medicare's requirements for reasonable and necessary INPATIENT services [42 CFR 412.3e].: Yes Medical Necessity: Failure to Improve With Outpatient Therapy, Need Close Monitoring Due to Risk of Patient Decompensation, Need for Pain Control 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
[2020-01-18] MEDS: PREDNISONE 20 MG TABLET PO SCH (18:46)
--- NOTE | 2020-01-18 19:51 | EKG REPORT ---
SEVERITY:- NORMAL ECG - SINUS RHYTHM : Confirmed by: Clarence Birmingham 18-Jan-2020 19:50:21
--- NOTE | 2020-01-18 21:40 | RADIOLOGY REPORT (SQ) ---
EXAM DESCRIPTION: MR BRAIN WITHOUT IV CONTRAST COMPLETED DATE/TME: 01/18/2020 00:00 CLINICAL HISTORY: 54 years, Female, syncopal episode EXAM DESCRIPTION: CLINICAL HISTORY: syncopal episode COMPARISON: None TECHNIQUE: Multiplanar multisequence imaging of the brain without the intravenous administration of contrast. FINDINGS: There are prominent perivascular spaces. There is a right probable choroid fissure cyst. There is a lacune of the right basal ganglia. There is no evidence of acute mass, mass effect, midline shift or hemorrhage. No focal abnormal extra-axial fluid collection is seen. The ventricles, basal cisterns and extra-axial fluid spaces are normal in size and configuration. Brain parenchymal signal is otherwise normal. IMPRESSION: No acute abnormalities.
[2020-01-18 22:17] LABS: ANION GAP 8 (5-19); BLOOD UREA NITROGEN 10 mg/dL (7-20); CALCIUM 8.8 mg/dL (8.4-10.2); CARBON DIOXIDE 26 mmol/L (22-30); CHLORIDE 104 mmol/L (98-107); CREATINE KINASE 74 U/L (30-135); GLUCOSE 101 mg/dL (75-110); POTASSIUM 3.8 mmol/L (3.6-5.0)
[2020-01-19] MEDS: OXYCODONE-ACETAMINOPHEN 5-325 MG TABLET PO PRN ×4 (00:01→17:59)
[2020-01-19 00:09] LABS: CREATINE KINASE MB 0.36 ng/mL (<4.55)
[2020-01-19 00:15] LABS: TROPONIN I < 0.012 ng/mL
[2020-01-19 05:43] LABS: ABSOLUTE LYMPHOCYTES (AUTO) 0.8 10^3/uL (0.5-4.7); ABSOLUTE MONOCYTES (AUTO) 0.1 10^3/uL (0.1-1.4); ABSOLUTE NEUT (AUTO) 5.8 10^3/uL (1.7-8.2); BASOPHILS % (AUTO) 0.2 % (0-2); EOSINOPHILS % (AUTO) 0.1 % (0-6); HEMATOCRIT 32.8 % (36.0-47.0); LYMPHOCYTES % (AUTO) 12.1 % (13-45); MEAN CORPUSCULAR HEMOGLOBIN 28.2 pg (27.0-33.4); MEAN CORPUSCULAR HGB CONC 33.5 g/dL (32.0-36.0); MEAN CORPUSCULAR VOLUME 84 fl (80-97); MONOCYTES % (AUTO) 1.9 % (3-13); PLATELET COUNT 324 10^3/uL (150-450); SEGMENTED NEUTROPHILS % (AUTO) 85.7 % (42-78); TOTAL CELLS COUNTED % (AUTO) 100 %; WHITE BLOOD COUNT 6.7 10^3/uL (4.0-10.5)
[2020-01-19 06:10] LABS: CREATINE KINASE MB 0.39 ng/mL (<4.55)
[2020-01-19 06:14] LABS: TROPONIN I < 0.012 ng/mL
[2020-01-19] MEDS: PANTOPRAZOLE SODIUM 40 MG TABLET.DR PO SCH ×2 (06:23→17:58)
--- NOTE | 2020-01-19 08:10 | PDOC PROGRESS REPORT ---
Subjective Progress Note for:: 01/19/20 Subjective:: Patient is feeling much better Patient's denied any chest pain no short of breath Patient's move all extremities without any problems Patient had MRI was negative for any acute finding Very extensive discussion with the patient after patient start taking the Selera After 3 days patient started developing the rash in the lower extremities and itching which is most likely related to the allergic conditions with the medications Reason For Visit: SYNCOPAL EPISODE Physical Exam Vital Signs: Temp Pulse Resp BP Pulse Ox 97.9 F 52 L 13 131/76 H 94 01/19/20 07:42 01/19/20 07:42 01/19/20 07:42 01/19/20 07:42 01/19/20 07:42 Intake & Output 01/18/20 01/19/20 01/20/20 06:59 06:59 06:59 Intake Total 1000 Output Total 0 Balance 1000 Weight 113.7 kg General appearance: PRESENT: no acute distress, well-developed, well-nourished Head exam: PRESENT: atraumatic, normocephalic Eye exam: PRESENT: conjunctiva pink, EOMI, PERRLA. ABSENT: scleral icterus Ear exam: PRESENT: normal external ear exam Mouth exam: PRESENT: moist, tongue midline Neck exam: PRESENT: full ROM. ABSENT: carotid bruit, JVD, lymphadenopathy, thyromegaly Respiratory exam: PRESENT: clear to auscultation anjum Cardiovascular exam: PRESENT: RRR. ABSENT: diastolic murmur, rubs, systolic murmur Pulses: PRESENT: normal dorsalis pedis pul, +2 pedal pulses bilateral Vascular exam: PRESENT: normal capillary refill GI/Abdominal exam: PRESENT: normal bowel sounds, soft. ABSENT: distended, guarding, mass, organolmegaly, rebound, tenderness Rectal exam: PRESENT: deferred Additional comments: Small erythematous rash scattered on the lower extremities Neurological exam: PRESENT: alert, awake, oriented to person, oriented to place, oriented to time, oriented to situation, CN II-XII grossly intact. ABSENT: mot or sensory deficit Psychiatric exam: PRESENT: appropriate affect, normal mood. ABSENT: homicidal ideation, suicidal ideation Skin exam: PRESENT: dry, intact, warm. ABSENT: cyanosis, rash Results Laboratory Results: 01/19/20 05:24 01/18/20 21:34 01/18/20 01/18/20 01/18/20 10:35 10:59 10:59 WBC 5.4 RBC 4.24 Hgb 12.0 Hct 35.9 L MCV 85 MCH 28.3 MCHC 33.3 RDW 15.4 H Plt Count 368 Seg Neutrophils % 59.1 Sodium 141.1 Potassium 4.5 Chloride 105 Carbon Dioxide 27 Anion Gap 9 BUN 8 Creatinine 0.72 Est GFR ( Amer) > 60 Glucose 89 Calcium 9.1 Magnesium Total Bilirubin 0.9 AST 28 Alkaline Phosphatase 70 Total Protein 7.8 Albumin 4.2 Urine Color STRAW Urine Appearance CLEAR Urine pH 7.0 Ur Specific [place] 1.010 Urine Protein NEGATIVE Urine Glucose (UA) NEGATIVE Urine Ketones NEGATIVE Urine Blood NEGATIVE Urine Nitrite NEGATIVE Ur Leukocyte Esterase NEGATIVE Urine WBC (Auto) 1 Urine RBC (Auto) 1 01/18/20 01/19/20 01/19/20 21:34 05:24 05:24 WBC 6.7 RBC 3.90 Hgb 11.0 L Hct 32.8 L MCV 84 MCH 28.2 MCHC 33.5 RDW 15.0 H Plt Count 324 Seg Neutrophils % 85.7 H Sodium 138.4 Potassium 3.8 Chloride 104 Carbon Dioxide 26 Anion Gap 8 BUN 10 Creatinine 0.83 Est GFR ( Amer) > 60 Glucose 101 Calcium 8.8 Magnesium 2.1 Total Bilirubin AST Alkaline Phosphatase Total Protein Albumin Urine Color Urine Appearance Urine pH Ur Specific [place] Urine Protein Urine Glucose (UA) Urine Ketones Urine Blood Urine Nitrite Ur Leukocyte Esterase Urine WBC (Auto) Urine RBC (Auto) 01/18/20 01/18/20 01/18/20 10:59 10:59 21:34 Creatine Kinase 91 74 CK-MB (CK-2) 0.45 Troponin I < 0.012 01/18/20 01/18/20 01/19/20 23:30 23:30 05:24 Creatine Kinase 73 64 CK-MB (CK-2) 0.36 Troponin I < 0.012 01/19/20 05:24 Creatine Kinase CK-MB (CK-2) 0.39 Troponin I < 0.012 Impressions: Head MRI 01/18/20 00:00 IMPRESSION: No acute abnormalities. Chest X-Ray 01/18/20 11:00 IMPRESSION: NO ACUTE RADIOGRAPHIC FINDING IN THE CHEST. Head CT 01/18/20 11:27 IMPRESSION: SLIGHTLY LIMITED STUDY. NORMAL BRAIN CT WITHOUT CONTRAST. EVIDENCE OF ACUTE STROKE: NO. Abdomen/Pelvis CT 01/18/20 11:28 IMPRESSION: Mild diverticulosis coli. No acute finding in the abdomen or pelvis. Assessment & Plan - Diagnosis (1) Syncope Qualifiers: Syncope type: unspecified Qualified Code(s): R55 - Syncope and collapse Is this a current diagnosis for this admission?: Yes Plan: Patient's all neuro work-up is negative's will wait for the cardiology (2) Crohn's disease Qualifiers: Gastrointestinal tract location: unspecified location Digestive disease complication type: unspecified complication Qualified Code(s): K50.919 - Crohn's disease, unspecified, with unspecified complications Is this a current diagnosis for this admission?: Yes Plan: Currently all stable CT scan is all negatives (3) Rheumatoid arthritis Qualifiers: Rheumatoid arthritis location: multiple sites Is this a current diagnosis for this admission?: Yes (4) Hypertension Qualifiers: Hypertension type: essential hypertension Qualified Code(s): I10 - Essential (primary) hypertension Is this a current diagnosis for this admission?: Yes Plan: Resume the home medications (5) Chronic pain syndrome Is this a current diagnosis for this admission?: Yes (6) Migraine headache Qualifiers: Migraine type: without aura Intractability: not intractable Is this a current diagnosis for this admission?: Yes (7) Polyclonal gammopathy Is this a current diagnosis for this admission?: Yes (8) History of cerebrovascular disease Is this a current diagnosis for this admission?: Yes (9) Major depression Qualifiers: Major depression recurrence: recurrent Psychotic features: without psychotic features Is this a current diagnosis for this admission?: Yes (10) Allergic reaction to drug Qualifiers: Encounter type: initial encounter Qualified Code(s): T78.40XA - Allergy, unspecified, initial encounter Is this a current diagnosis for this admission?: Yes Plan: With the elevated eosinophil most likely related to the drug reactions which is only thing new and after 3 to 4 days patient started developing this rash and itching continues the Zyrtec and continues the prednisone discussed with the patient's to talk to the Dr. John and Dr. Pastor we will send the report to him to - Time Time Spent with patient: 15-24 minutes Level of Care: IMCU Medications reviewed and adjusted accordingly: Yes Anticipated discharge: Home Anticipated DC Timeframe: within 24 hours - Plan Summary Plan Summary: Get the physical therapy evaluations continues to current medications continues a steroid and Zyrtec
[2020-01-19] MEDS: PREDNISONE 20 MG TABLET PO SCH ×2 (09:29→17:59)
[2020-01-19] MEDS: LOSARTAN POTASSIUM 50 MG TABLET PO SCH (09:29)
[2020-01-19] MEDS: AMLODIPINE BESYLATE 5 MG TABLET PO SCH (09:30)
[2020-01-19] MEDS: FLUTICASONE NASAL SPRAY 50 MCG/SPRY 120 SPRAY/16 GM NASL SCH (09:32)
[2020-01-19] MEDS: ENOXAPARIN SODIUM INJ 40 MG/0.4 ML DISP.SYRIN SUBCUT SCH (09:32)
[2020-01-19] MEDS ORDERED: CETIRIZINE 5 MG TABLET PO SCH (10:00)
--- NOTE | 2020-01-19 15:16 | PDOC CONSULTATION ---
Consultation-Blank Consultation: CARDIOLOGY PROGRESS NOTE by Dr. Paulette Armando on 01/19/2020. Patient seen at 5:30 PM. 60 minutes spent on with patient more than 50% of time spent on direct patient care. REASON FOR CONSULTATION: Patient with syncopal episode. CONSULT REQUESTING PHYSICIAN: Dr. Dinero. HISTORY of present ILLNESS: Past Medical History Cardiac Medical History: Reports: Congestive Heart Failure, Myocardial Infarction - "mild" 2007, Hypertension Malignancy Medical History: Reports: Skin Cancer GI Medical History: Reports: Crohn's Disease, Diverticulitis, Gastroesophageal Reflux Disease Musculoskeltal Medical History: Reports: Arthritis Psychiatric Medical History: Reports: Depression Lungs: She has no history of COPD or asthma. She has a history of sleep apnea uses CPAP. Past Surgical History Past Surgical History: Reports: Section - x5, Cholecystectomy, Herniorrhaphy, Tonsillectomy Social History Information Source: Patient Smoking Status: Never Smoker Electronic Cigarette use?: No Frequency of Alcohol Use: None Hx Recreational Drug Use: No Hx Prescription Drug Abuse: No Family History Family History: Reviewed & Not Pertinent Parental Family History Reviewed: Yes Children Family History Reviewed: Yes Sibling(s) Family History Reviewed.: Yes Medication/Allergy Home Medications: Amlodipine Besylate [Norvasc 5 mg Tablet] 5 mg PO DAILY 01/21/16 Diclofenac Sodium [Voltaren] 100 gm TP DAILY 01/21/16 Infliximab [Remicade Inj 100 mg Vial] 100 mg IV ASDIR PRN 01/21/16 Ondansetron HCl 4 mg PO DAILY PRN 01/21/16 Pantoprazole Sodium [Protonix] 40 mg PO DAILY 01/21/16 Valsartan [Diovan] 160 mg PO DAILY 01/21/16 Cyclobenzaprine HCl [Flexeril 5 mg Tablet] 5 mg PO TIDP PRN #15 tablet 04/01/17 Ergocalciferol (Vitamin D2) [Vitamin D2] 50,000 unit PO ASDIR PRN 04/01/17 Mometasone Furoate [Nasonex] 2 inh NS DAILY 04/01/17 Oxycodone HCl 15 mg PO Q6H PRN 04/01/17 Prednisone 2.5 mg PO DAILY 04/01/17 Prednisone 5 mg PO ASDIR PRN #32 tablet 04/01/17 Prochlorperazine Maleate [Compazine 10 mg Tablet] 10 mg PO Q6 #30 tablet 06/18/17 Methocarbamol [Robaxin 750 mg Tablet] 750 mg PO TID PRN #10 tablet 02/26/19 Allergies/Adverse Reactions: morphine [Morphine] Allergy (Mild, Verified 06/18/17 15:57) aspirin [Aspirin] Allergy (Verified 06/18/17 15:57) NSAIDS (Non-Steroidal Anti-Inflamma [Nsaids] Allergy (Verified 06/18/17 15:57) pregabalin [From Lyrica] Allergy (Verified 06/18/17 15:57) Current Medications Generic Name Dose Route Start Last Admin Trade Name Freq PRN Reason Stop Dose Admin Acetaminophen 650 mg 01/18/20 15:56 Tylenol 325 Mg Tablet PO 02/17/20 15:55 Q4HP PRN FOR PAIN OR TEMP Amlodipine Besylate 5 mg 01/19/20 10:00 01/19/20 09:30 Norvasc 5 Mg Tablet PO 02/18/20 09:59 5 mg DAILY DHAVAL Administration Docusate Sodium 100 mg 01/19/20 18:00 01/19/20 17:58 Colace 100 Mg Capsule PO 02/18/20 17:59 100 mg BID DHAVAL Administration Enoxaparin Sodium 40 mg 01/19/20 10:00 01/19/20 09:32 Lovenox Inj 40 Mg/0.4 Ml Disp.Syrin SUBCUT 02/18/20 09:59 Not Given DAILY DHAVAL Fluticasone Propionate 2 spray 01/19/20 10:00 01/19/20 09:32 Flonase Nasal [place] 50 Mcg/[place] 16 Gm NASL 02/18/20 09:59 2 spr DAILY DHAVAL Administration Losartan Potassium 50 mg 01/19/20 10:00 01/19/20 09:29 Cozaar 50 Mg Tablet PO 02/18/20 09:59 50 mg DAILY DHAVAL Administration Montelukast Sodium 10 mg 01/19/20 22:00 01/19/20 22:46 Singulair 10 Mg Tablet PO 02/18/20 21:59 10 mg QHS DHAVAL Administration Ondansetron HCl 4 mg 01/18/20 15:56 Zofran Inj/Pf 4 Mg/2 Ml Sdv IV 02/17/20 15:55 Q4HP PRN FOR NAUSEA/VOMITING Oxycodone/Acetaminophen 1 tab 01/18/20 15:56 01/20/20 00:05 Percocet 5-325 Mg Tablet PO 01/25/20 15:55 1 tab Q6HP PRN Administration FOR PAIN Pantoprazole Sodium 40 mg 01/18/20 17:00 01/19/20 17:[address] Tablet PO 02/17/20 16:59 40 mg BID@0600,1700 DHAVAL Administration Levocetirizine 5 Mg 1 dose 01/19/20 22:00 01/19/20 22:45 Tablet PO 02/18/20 21:59 1 tab QHS DHAVAL Administration Polyethylene Glycol 17 gm 01/19/20 15:37 Miralax Powder 17 Gm/Packet PO 02/18/20 15:36 DAILYP PRN FOR CONSTIPATION Prednisone 20 mg 01/18/20 18:15 01/19/20 17:59 Deltasone 20 Mg Tablet PO 02/17/20 18:14 20 mg BID DHAVAL Administration Discontinued Medications Generic Name Dose Route Start Last Admin Trade Name Freq PRN Reason Stop Dose Admin Cetirizine HCl 5 mg 01/19/20 10:00 01/19/20 09:29 Zyrtec 5 Mg Tablet PO 02/18/20 09:59 Not Given DAILY DHAVAL Hydromorphone HCl 0.5 mg 01/18/20 11:30 01/18/20 11:42 Dilaudid Inj/Pf 2 Mg/Ml Ampule IV 01/18/20 11:31 0.5 mg NOW ONE Administration Hydromorphone HCl 0.5 mg 01/18/20 14:23 01/18/20 14:35 Dilaudid Inj/Pf 2 Mg/Ml Ampule IV 01/18/20 14:24 0.5 mg NOW ONE Administration Sodium Chloride 1,000 mls @ 0 mls/hr 01/18/20 11:30 01/18/20 12:45 Nacl 0.9% 1000 Ml Iv Soln IV 01/18/20 11:31 Infused BOLUS ONE Infusion Wide Open Sodium Chloride 1,000 mls @ 70 mls/hr 01/18/20 15:56 01/18/20 18:39 Nacl 0.9% 1000 Ml Iv Soln IV 02/17/20 15:55 70 mls/hr CONTINUOUS PRN Administration THIS MED IS NOT "PRN" RESUSCITATION outcome status: The patient is a full code. Her son is a [employer] decision maker. Review of Systems Constitutional: PRESENT: fatigue, headache(s), weakness. ABSENT: chills, fever(s), weight gain, weight loss Eyes: ABSENT: visual disturbances Ears: ABSENT: hearing changes Cardiovascular: ABSENT: chest pain, dyspnea on exertion, edema, orthropnea, palpitations Respiratory: ABSENT: cough, hemoptysis Gastrointestinal: PRESENT: abdominal pain. ABSENT: constipation, diarrhea, alphonso temesis, hematochezia, nausea, vomiting Genitourinary: ABSENT: dysuria, hematuria Musculoskeletal: ABSENT: joint swelling Integumentary: ABSENT: rash, wounds Neurological: ABSENT: abnormal gait, abnormal speech, confusion, dizziness, focal weakness, syncope Psychiatric: ABSENT: anxiety, depression, homidical ideation, suicidal ideation Endocrine: ABSENT: cold intolerance, heat intolerance, menstrual abnormalities, polydipsia, polyuria Hematologic/Lymphatic: ABSENT: easy bleeding, easy bruising, lymphadenopathy Physical Exam: The patient is morbidly obese. In no acute distress although she is slightly anxious. Selected Entries 01/19/20 16:00 Temperature 98.3 F Temperature Oral Source Pulse Rate 85 Respiratory 22 H Rate Blood Pressure 145/79 H [Left Upper Arm ] Blood Pressure 101 Mean [Left Upper Arm] Blood Pressure Supine Position [Left Upper Arm] O2 Sat by Pulse 99 Oximetry Oxygen Delivery Room Air Method ( includes room air) HEAD: Atraumatic normocephalic. EYES: Pupils equal round regular reactive to light and accommodation. Extraocular movements are normal. There is no conjunctival pallor. There is no scleral icterus. EARS: Tympanic membranes are intact. External auditory canals are clear. NOSE: There is no deviated nasal septum. There is no inflammation nasal mucous membrane. MOUTH: Mucous membranes of mouth are dry. Tongue is dry. There is no ulcers. There is no bleeding from the gums. THROAT: There is no redness of the oropharynx. There is no exudates. SKIN: There scattered hives around the body in the the patient's skin. There is no petechia or ecchymosis. NECK: Supple. There is no JVD. Carotids are equal there is no bruit. There is no lymphadenopathy. There is no goiter. There is no accessory muscle respiration use. Trachea central. LUNGS: Is clear to auscultation percussion. There is no rhonchi rales or wheezing. HEART: S1-S2 is heard. There is no S3 gallop. There is no S4 ga llop. There is systolic murmur left sternal border and the apex there is no rub. EXTREMITIES: Femorals are deep. Femorals are diminished. Leg pulses slightly diminished. There is no pedal edema. There is no DVT or cellulitis. There is no calf tenderness. There is no cyanosis or clubbing. [employer] T[employer]ET CHECKER: The patient is conscious awake alert oriented x3 with no focal deficits. PSYCHIATRIC: Patient judgment insight are intact her affect is normal. Labs- Entire Visit 01/18/20 01/18/20 01/18/20 10:35 10:59 10:59 WBC 5.4 RBC 4.24 Hgb 12.0 Hct 35.9 L MCV 85 MCH 28.3 MCHC 33.3 RDW 15.4 H Plt Count 368 Lymph % (Auto) 27.3 Harris % (Auto) 5.5 Eos % (Auto) 7.6 H Baso % (Auto) 0.5 Absolute Neuts (auto) 3.2 Absolute Lymphs (auto) 1.5 Absolute Monos (auto) 0.3 Absolute Eos (auto) 0.4 Absolute Basos (auto) 0.0 Seg Neutrophils % 59.1 ESR Sodium 141.1 Potassium 4.5 Chloride 105 Carbon Dioxide 27 Anion Gap 9 BUN 8 Creatinine 0.72 Est GFR ( Amer) > 60 Est GFR (MDRD) Non-Af > 60 Glucose 89 Calcium 9.1 Magnesium Total Bilirubin 0.9 Direct Bilirubin 0.3 Neonat Total Bilirubin Not Reportable Neonat Direct Bilirubin Not Reportable Neonat Indirect Bili Not Reportable AST 28 ALT 18 Alkaline Phosphatase 70 Creatine Kinase 91 CK-MB (CK-2) Troponin I Total Protein 7.8 Albumin 4.2 Urine Color STRAW Urine Appearance CLEAR Urine pH 7.0 Ur Specific [place] 1.010 Urine Protein NEGATIVE Urine Glucose (UA) NEGATIVE Urine Ketones NEGATIVE Urine Blood NEGATIVE Urine Nitrite NEGATIVE Urine Bilirubin NEGATIVE Urine Urobilinogen NEGATIVE Ur Leukocyte Esterase NEGATIVE Urine WBC (Auto) 1 Urine RBC (Auto) 1 Squamous Epi Cells Auto 3 Urine Mucus (Auto) RARE Urine Ascorbic Acid NEGATIVE 01/18/20 01/18/20 01/18/20 10:59 10:59 21:34 WBC RBC Hgb Hct MCV MCH MCHC RDW Plt Count Lymph % (Auto) Harris % (Auto) Eos % (Auto) Baso % (Auto) Absolute Neuts (auto) Absolute Lymphs (auto) Absolute Monos (auto) Absolute Eos (auto) Absolute Basos (auto) Seg Neutrophils % ESR 50 H Sodium 138.4 Potassium 3.8 Chloride 104 Carbon Dioxide 26 Anion Gap 8 BUN 10 Creatinine 0.83 Est GFR ( Amer) > 60 Est GFR (MDRD) Non-Af > 60 Glucose 101 Calcium 8.8 Magnesium Total Bilirubin Direct Bilirubin Neonat Total Bilirubin Neonat Direct Bilirubin Neonat Indirect Bili AST ALT Alkaline Phosphatase Creatine Kinase 74 CK-MB (CK-2) 0.45 Troponin I < 0.012 Total Protein Albumin Urine Color Urine Appearance Urine pH Ur Specific [place] Urine Protein Urine Glucose (UA) Urine Ketones Urine Blood Urine Nitrite Urine Bilirubin Urine Urobilinogen Ur Leukocyte Esterase Urine WBC (Auto) Urine RBC (Auto) Squamous Epi Cells Auto Urine Mucus (Auto) Urine Ascorbic Acid 01/18/20 01/18/20 01/19/20 23:30 23:30 05:24 WBC RBC Hgb Hct MCV MCH MCHC RDW Plt Count Lymph % (Auto) [place] % (Auto) Eos % (Auto) Baso % (Auto) Absolute Neuts (auto) Absolute Lymphs (auto) Absolute Monos (auto) Absolute Eos (auto) Absolute Basos (auto) Seg Neutrophils % ESR Sodium Potassium Chloride Carbon Dioxide Anion Gap BUN Creatinine Est GFR ( Amer) Est GFR (MDRD) Non-Af Glucose Calcium Magnesium 2.1 Total Bilirubin Direct Bilirubin Neonat Total Bilirubin Neonat Direct Bilirubin Neonat Indirect Bili AST ALT Alkaline Phosphatase Creatine Kinase 73 64 CK-MB (CK-2) 0.36 Troponin I < 0.012 Total Protein Albumin Urine Color Urine Appearance Urine pH Ur Specific [place] Urine Protein Urine Glucose (UA) Urine Ketones Urine Blood Urine Nitrite Urine Bilirubin Urine Urobilinogen Ur Leukocyte Esterase Urine WBC (Auto) Urine RBC (Auto) Squamous Epi Cells Auto Urine Mucus (Auto) Urine Ascorbic Acid 01/19/20 01/19/20 05:24 05:24 WBC 6.7 RBC 3.90 Hgb 11.0 L Hct 32.8 L MCV 84 MCH 28.2 MCHC 33.5 RDW 15.0 H Plt Count 324 Lymph % (Auto) 12.1 L [place] % (Auto) 1.9 L Eos % (Auto) 0.1 Baso % (Auto) 0.2 Absolute Neuts (auto) 5.8 Absolute Lymphs (auto) 0.8 Absolute Monos (auto) 0.1 Absolute Eos (auto) 0.0 Absolute Basos (auto) 0.0 Seg Neutrophils % 85.7 H ESR Sodium Potassium Chloride Carbon Dioxide Anion Gap BUN Creatinine Est GFR ( Amer) Est GFR (MDRD) Non-Af Glucose Calcium Magnesium Total Bilirubin Direct Bilirubin Neonat Total Bilirubin Neonat Direct Bilirubin Neonat Indirect Bili AST ALT Alkaline Phosphatase Creatine Kinase CK-MB (CK-2) 0.39 Troponin I < 0.012 Total Protein Albumin Urine Color Urine Appearance Urine pH Ur Specific [place] Urine Protein Urine Glucose (UA) Urine Ketones Urine Blood Urine Nitrite Urine Bilirubin Urine Urobilinogen Ur Leukocyte Esterase Urine WBC (Auto) Urine RBC (Auto) Squamous Epi Cells Auto Urine Mucus (Auto) Urine Ascorbic Acid Head MRI 01/18/20 00:00 IMPRESSION: No acute abnormalities. Chest X-Ray 01/18/20 11:00 IMPRESSION: NO ACUTE RADIOGRAPHIC FINDING IN THE CHEST. Head CT 01/18/20 11:27 IMPRESSION: SLIGHTLY LIMITED STUDY. NORMAL BRAIN CT WITHOUT CONTRAST. EVIDENCE OF ACUTE STROKE: NO. Abdomen/Pelvis CT 01/18/20 11:28 IMPRESSION: Mild diverticulosis coli. No acute finding in the abdomen or pelvis. EKG: Sinus rhythm. Within normal limits. The patient second EKG shows sinus rhythm. Consider left ventricle hypertrophy by voltage. IMPRESSION/RECOMMENDATION: 1. Syncopal episode which is brief most likely secondary to volume depletion and postural hypotension. 2. Most likely reaction to Stelara. Would recommend continue IV fluids. And Benadryl consider steroid orally. 3. History of hypertension: Blood pressure seems to be well controlled. 4. Dehydration secondary to hypovolemia: Replace with IV fluids. 5. History of Crohn's disease: Seems to be in remission at present. 6. Sleep apnea: Continue CPAP 7. History of mild [place] in 2006. Later would recommend that the patient have an echocardiogram and a Lexiscan Cardiolite stress test which can be done as an outpatient. MEDICATIONS reviewed. Medical management and management and medical regimen discussed with Dr. Dinero. Medical decision making is of moderate to high c omplexity. 60 minutes spent as patient with more than 50% time spent in direct patient care. Will follow
[2020-01-19] MEDS ORDERED: POLYETHYLENE GLYCOL 3350 POWDER 17 GM/1 PACKET PO PRN (15:37)
[2020-01-19] MEDS: DOCUSATE SODIUM 100 MG CAPSULE PO SCH (17:58)
--- NOTE | 2020-01-19 19:47 | EKG REPORT ---
SEVERITY:- ABNORMAL ECG - SINUS RHYTHM CONSIDER LEFT VENTRICULAR HYPERTROPHY : Confirmed by: Clarence Birmingham 19-Jan-2020 19:46:24
[2020-01-19] MEDS ORDERED: MONTELUKAST SODIUM 10 MG TABLET PO SCH (22:00)
[2020-01-19] MEDS ORDERED: LEVOCETIRIZINE 5 MG TABLET PO SCH (22:00)
[2020-01-20] MEDS: OXYCODONE-ACETAMINOPHEN 5-325 MG TABLET PO PRN ×3 (00:05→11:35)
[2020-01-20 04:30] LABS: ANION GAP 11 (5-19); BLOOD UREA NITROGEN 14 mg/dL (7-20); CALCIUM 9.5 mg/dL (8.4-10.2); CARBON DIOXIDE 24 mmol/L (22-30); CHLORIDE 105 mmol/L (98-107); GLUCOSE 129 mg/dL (75-110); POTASSIUM 4.6 mmol/L (3.6-5.0)
[2020-01-20] MEDS: PANTOPRAZOLE SODIUM 40 MG TABLET.DR PO SCH (05:57)
[2020-01-20 08:21] VITALS: BP 113/66
[2020-01-20] MEDS ORDERED: HYDROCORTISONE 1% CREAM 28.35 GM TP PRN (08:36)
--- NOTE | 2020-01-20 08:36 | PDOC PROGRESS REPORT ---
Subjective Progress Note for:: 01/20/20 Subjective:: Patient is currently doing well Patient is walk with the physical therapy yesterday Patient seen by the cardiology yesterday follow outpatient Denied any chest pain no short of breath Still having some itching Patient's only spot in the left upper arm with a bruise-like spot Other than that patient's denied any other issues except patient have underlying major depressions Reason For Visit: SYNCOPAL EPISODE Physical Exam Vital Signs: Temp Pulse Resp BP Pulse Ox 97.9 F 58 L 12 113/66 98 01/20/20 08:00 01/20/20 08:00 01/20/20 08:00 01/20/20 08:00 01/20/20 08:00 Intake & Output 01/19/20 01/20/20 01/21/20 06:59 06:59 06:59 Intake Total 1000 Output Total 0 0 Balance 1000 0 Weight 113.7 kg 116.5 kg General appearance: PRESENT: no acute distress, well-developed, well-nourished Head exam: PRESENT: atraumatic, normocephalic Eye exam: PRESENT: conjunctiva pink, EOMI, PERRLA. ABSENT: scleral icterus Ear exam: PRESENT: normal external ear exam Mouth exam: PRESENT: moist, tongue midline Neck exam: PRESENT: full ROM. ABSENT: carotid bruit, JVD, lymphadenopathy, thyromegaly Respiratory exam: PRESENT: clear to auscultation anjum Cardiovascular exam: PRESENT: RRR. ABSENT: diastolic murmur, rubs, systolic murmur Pulses: PRESENT: normal dorsalis pedis pul, +2 pedal pulses bilateral Vascular exam: PRESENT: normal capillary refill GI/Abdominal exam: PRESENT: normal bowel sounds, soft. ABSENT: distended, guarding, mass, organolmegaly, rebound, tenderness Rectal exam: PRESENT: deferred Musculoskeletal exam: PRESENT: ambulatory Neurological exam: PRESENT: alert, awake, oriented to person, oriented to place, oriented to time, oriented to situation, CN II-XII grossly intact. ABSENT: motor sensory deficit Psychiatric exam: PRESENT: appropriate affect, normal mood. ABSENT: homicidal ideation, suicidal ideation Skin exam: PRESENT: dry, intact, warm. ABSENT: cyanosis, rash Results Laboratory Results: 01/19/20 05:24 01/20/20 04:02 01/20/20 04:02 Sodium 139.6 Potassium 4.6 Chloride 105 Carbon Dioxide 24 Anion Gap 11 BUN 14 Creatinine 0.79 Est GFR ( Amer) > 60 Glucose 129 H Calcium 9.5 01/18/20 01/18/20 01/18/20 10:59 10:59 21:34 Creatine Kinase 91 74 CK-MB (CK-2) 0.45 Troponin I < 0.012 01/18/20 01/18/20 01/19/20 23:30 23:30 05:24 Creatine Kinase 73 64 CK-MB (CK-2) 0.36 Troponin I < 0.012 01/19/20 05:24 Creatine Kinase CK-MB (CK-2) 0.39 Troponin I < 0.012 Impressions: Head MRI 01/18/20 00:00 IMPRESSION: No acute abnormalities. Chest X-Ray 01/18/20 11:00 IMPRESSION: NO ACUTE RADIOGRAPHIC FINDING IN THE CHEST. Head CT 01/18/20 11:27 IMPRESSION: SLIGHTLY LIMITED STUDY. NORMAL BRAIN CT WITHOUT CONTRAST. EVIDENCE OF ACUTE STROKE: NO. Abdomen/Pelvis CT 01/18/20 11:28 IMPRESSION: Mild diverticulosis coli. No acute finding in the abdomen or pelvis. Assessment & Plan - Diagnosis (1) Syncope Qualifiers: Syncope type: unspecified Qualified Code(s): R55 - Syncope and collapse Is this a current diagnosis for this admission?: Yes Plan: Currently all work-up is negative follow outpatients cardiology (2) Crohn's disease Qualifiers: Gastrointestinal tract location: unspecified location Digestive disease complication type: unspecified complication Qualified Code(s): K50.919 - Crohn's disease, unspecified, with unspecified complications Is this a current diagnosis for this admission?: Yes Plan: Currently follow with the Dr. Pastor (3) Rheumatoid arthritis Qualifiers: Rheumatoid arthritis location: multiple sites Is this a current diagnosis for this admission?: Yes Plan: Patient is currently see Dr. John (4) Hypertension Qualifiers: Hypertension type: essential hypertension Qualified Code(s): I10 - Es sential (primary) hypertension Is this a current diagnosis for this admission?: Yes Plan: Resume the home medications (5) Chronic pain syndrome Is this a current diagnosis for this admission?: Yes (6) Migraine headache Qualifiers: Migraine type: without aura Intractability: not intractable Is this a current diagnosis for this admission?: Yes (7) Polyclonal gammopathy Is this a current diagnosis for this admission?: Yes Plan: schedule outpatients hematology to further evaluate (8) History of cerebrovascular disease Is this a current diagnosis for this admission?: Yes (9) Major depression Qualifiers: Major depression recurrence: recurrent Psychotic features: without psychotic features Is this a current diagnosis for this admission?: Yes (10) Allergic reaction to drug Qualifiers: Encounter type: initial encounter Qualified Code(s): T78.40XA - Allergy, unspecified, initial encounter Is this a current diagnosis for this admission?: Yes Plan: Will continues the prednisone 20 mg twice a day at the Xyzal 5 mg daily and will try some triamcinolone cream Discussed with the patient's discussed with the tool marker and GI to did not start the Selerna - Time Time Spent with patient: 15-24 minutes Level of Care: TELE Medications reviewed and adjusted accordingly: Yes Anticipated discharge: Home Anticipated DC Timeframe: Other - Plan Summary Plan Summary: Patient is excited to go home discussed with the patient's to follow in a couple of days in office will arrange the physical therapy as an outpatient discussed all test reports with the patient Follow outpatients GI and tool marker Follow outpatient cardiology
[2020-01-20] MEDS: FLUTICASONE NASAL SPRAY 50 MCG/SPRY 120 SPRAY/16 GM NASL SCH (09:17)
[2020-01-20] MEDS: AMLODIPINE BESYLATE 5 MG TABLET PO SCH (09:17)
[2020-01-20] MEDS: DOCUSATE SODIUM 100 MG CAPSULE PO SCH (09:17)
[2020-01-20] MEDS: PREDNISONE 20 MG TABLET PO SCH (09:17)
[2020-01-20] MEDS: LOSARTAN POTASSIUM 50 MG TABLET PO SCH (09:18)
[2020-01-20] MEDS: ENOXAPARIN SODIUM INJ 40 MG/0.4 ML DISP.SYRIN SUBCUT SCH (09:18)
--- NOTE | 2020-01-20 12:27 | PDOC DISCHARGE SUMMARY ---
Impression - Admit/DC Date/PCP Admission Date/Primary Care Provider: 01/18/20 16:30 ARIANNE DINERO MD Discharge Date: 01/20/20 - Discharge Diagnosis (1) Syncope Is this a current diagnosis for this admission?: Yes (2) Crohn's disease Is this a current diagnosis for this admission?: Yes (3) Rheumatoid arthritis Is this a current diagnosis for this admission?: Yes (4) Hypertension Is this a current diagnosis for this admission?: Yes (5) Chronic pain syndrome Is this a current diagnosis for this admission?: Yes (6) Migraine headache Is this a current diagnosis for this admission?: Yes (7) Polyclonal gammopathy Is this a current diagnosis for this admission?: Yes (8) History of cerebrovascular disease Is this a current diagnosis for this admission?: Yes (9) Major depression Is this a current diagnosis for this admission?: Yes (10) Allergic reaction to drug Is this a current diagnosis for this admission?: Yes - Additional Information Discharge Diet: Cardiac Discharge Activity: Activity As Tolerated Referrals: ARIANNE DINERO MD [Primary Care Provider] - (Patient has appt. this week with .) RENNY MARSHALL MD [ASSOCIATE] - 01/22/20 10:00 am (Patient will make on appt after seeing Dr. Dinero on Saturday) Prescriptions: Prednisone [Deltasone 20 mg Tablet] 20 mg PO BID #30 tablet Home Medications: Amlodipine Besylate [Norvasc 5 mg Tablet] 5 mg PO DAILY 01/21/16 Ondansetron HCl 4 mg PO DAILY PRN 01/21/16 Pantoprazole Sodium [Protonix] 40 mg PO DAILY 01/21/16 Ergocalciferol (Vitamin D2) [Vitamin D2] 50,000 unit PO RIGGS@1000 PRN 04/01/17 Mometasone Furoate [Nasonex] 2 inh NS DAILY 04/01/17 Oxycodone HCl 15 mg PO Q6HP PRN 04/01/17 Acetaminophen [Acetaminophen Extra Strength] 500 mg PO DAILYP PRN 01/18/20 Diphenhydramine HCl [Benadryl] 25 mg PO DAILYP PRN 01/18/20 Levocetirizine Dihydrochloride [Xyzal] 5 mg PO DAILY 01/18/20 Losartan Potassium [Cozaar 50 mg Tablet] 50 mg PO DAILY 01/18/20 Montelukast Sodium [Singulair 10 mg Tablet] 10 mg PO QHS 01/18/20 Multivit,Tx with Iron,Minerals [Thera-M] 1 each PO DAILY 01/18/20 Prednisone [Deltasone 20 mg Tablet] 20 mg PO BID #30 tablet 01/20/20 History of Present Illiness History of Present Illness: KEON GODINEZ is a 54 year old female tiejohnie is a 54-year-old female who presented today for a same-day urgent visit with complaints of feeling very weak and "like something was wrong." While getting vitals patient had a syncopal episode. She was then unresponsive to commands. EMS was called and patient was taken to [facility]. Before leaving patient did become more coherent, told me that she did take amoxicillin prescription she had at home over the weekend for return of skin lesions on her arms. She has recently been followed for urticaria-like lesions and was seen last week as a follow-up of cellulitis. 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 She been treated for the cellulitis on her left lower leg with Keflex, mupirocin and Benadryl an area had resolved at follow-up last week. She had no pain or fever at that time. She is followed by GI for Crohn's disease, has regular follow-up. Now on Stelara. She says she called them when these skin lesions were initially seen and was told likely not a reaction to Stelara. She has only been on this medication for about 6 weeks. In the emergency department patient CT of the head CT abdomen pelvis is all negative for any acute finding Blood work is all stable Patient is currently followed Dr. John for the rheumatoid arthritis and chronic pain patient also used to see a pain management for chronic neck pain back pain Also see a GI Dr. Pastor at [place] At this point decided to admit in the hospital for further evaluations Hospital Course Hospital Course: This is a 54-year-old female admitted for the syncopal episodes Patient CT of the head MRI of the head was negative Patient CT abdomen and pelvis negative for any acute flareup from the Crohn's Patient's blood culture other culture was all negative and her blood work is all stable Patient with significant history of the Crohn's disease currently started the new medicine Slerna And after 3 days patient started developing the weakness leg pain and a rash Patient also have a significant history of the immune disorder rheumatoid arthritis currently see Dr. John\\ Also complaining of itching which is very consistence with the elevated eosinop hil and the blood work with allergic reactions most likely a from the medications Patients treated with the steroids antihistaminic medications Since seen by the cardiology all stable Patient's weakness is also improving physical therapy evaluations done patient's walk with the physical therapy At this point discussed with the patient to continues to steroid for another week and continues the monitor we will discharge the patient's with the patient's currently all the work-up is stable patient is doing very well cleared from cardiology Patient's follow outpatients rheumatology currently do not take that new medications Physical Exam Vital Signs: Temp Pulse Resp BP Pulse Ox 97.9 F 58 L 17 113/66 98 01/20/20 10:49 01/20/20 10:49 01/20/20 10:49 01/20/20 10:49 01/20/20 10:49 Intake & Output 01/19/20 01/20/20 01/21/20 06:59 06:59 06:59 Intake Total 1000 Output Total 0 0 Balance 1000 0 Weight 113.7 kg 116.5 kg General appearance: PRESENT: no acute distress, well-developed, well-nourished Head exam: PRESENT: atraumatic, normocephalic Eye exam: PRESENT: conjunctiva pink, EOMI, PERRLA. ABSENT: scleral icterus Ear exam: PRESENT: normal external ear exam Mouth exam: PRESENT: moist, tongue midline Neck exam: ABSENT: carotid bruit, JVD, lymphadenopathy, thyromegaly Respiratory exam: PRESENT: clear to auscultation anjum. ABSENT: rales, rhonchi, wheezes Cardiovascular exam: PRESENT: RRR. ABSENT: diastolic murmur, rubs, systolic murmur Pulses: PRESENT: normal dorsalis pedis pul Vascular exam: PRESENT: normal capillary refill GI/Abdominal exam: PRESENT: normal bowel sounds, soft. ABSENT: distended, guarding, mass, organolmegaly, rebound, tenderness Rectal exam: PRESENT: deferred Extremities exam: PRESENT: full ROM. ABSENT: calf tenderness, clubbing, pedal edema Musculoskeletal exam: PRESENT: ambulatory Neurological exam: PRESENT: alert, awake, oriented to person, oriented to place, oriented to time, oriented to situation, CN II-XII grossly intact. ABSENT: motor sensory deficit Psychiatric exam: PRESENT: appropriate affect, normal mood. ABSENT: homicidal ideation, suicidal ideation Skin exam: PRESENT: dry, intact, warm. ABSENT: cyanosis, rash Results Laboratory Results: WBC 6.7 10^3/uL (4.0-10.5) 01/19/20 05:24 RBC 3.90 10^6/uL (3.72-5.28) 01/19/20 05:24 Hgb 11.0 g/dL (12.0-15.5) L 01/19/20 05:24 Hct 32.8 % (36.0-47.0) L 01/19/20 05:24 MCV 84 fl (80-97) 01/19/20 05:24 MCH 28.2 pg (27.0-33.4) 01/19/20 05:24 MCHC 33.5 g/dL (32.0-36.0) 01/19/20 05:24 RDW 15.0 % (11.5-14.0) H 01/19/20 05:24 Plt Count 324 10^3/uL (150-450) 01/19/20 05:24 Lymph % (Auto) 12.1 % (13-45) L 01/19/20 05:24 Terrell % (Auto) 1.9 % (3-13) L 01/19/20 05:24 Eos % (Auto) 0.1 % (0-6) 01/19/20 05:24 Baso % (Auto) 0.2 % (0-2) 01/19/20 05:24 Absolute Neuts (auto) 5.8 10^3/uL (1.7-8.2) 01/19/20 05:24 Absolute Lymphs (auto) 0.8 10^3/uL (0.5-4.7) 01/19/20 05:24 Absolute Monos (auto) 0.1 10^3/uL (0.1-1.4) 01/19/20 05:24 Absolute Eos (auto) 0.0 10^3/uL (0.0-0.6) 01/19/20 05:24 Absolute Basos (auto) 0.0 10^3/uL (0.0-0.2) 01/19/20 05:24 Seg Neutrophils % 85.7 % (42-78) H 01/19/20 05:24 ESR 50 mm/hr (0-30) H 01/18/20 10:59 Sodium 139.6 mmol/L (137-145) 01/20/20 04:02 Potassium 4.6 mmol/L (3.6-5.0) 01/20/20 04:02 Chloride 105 mmol/L (98-107) 01/20/20 04:02 Carbon Dioxide 24 mmol/L (22-30) 01/20/20 04:02 Anion Gap 11 (5-19) 01/20/20 04:02 BUN 14 mg/dL (7-20) 01/20/20 04:02 Creatinine 0.79 mg/dL (0.52-1.25) 01/20/20 04:02 Est GFR ( Amer) > 60 (>60) 01/20/20 04:02 Est GFR (MDRD) Non-Af > 60 (>60) 01/20/20 04:02 Glucose 129 mg/dL (75-110) H 01/20/20 04:02 Calcium 9.5 mg/dL (8.4-10.2) 01/20/20 04:02 Magnesium 2.1 mg/dL (1.6-2.3) 01/19/20 05:24 Total Bilirubin 0.9 mg/dL (0.2-1.3) 01/18/20 10:59 Direct Bilirubin 0.3 mg/dL (0.0-0.4) 01/18/20 10:59 Neonat Total Bilirubin Not Reportable 01/18/20 10:59 Neonat Direct Bilirubin Not Reportable 01/18/20 10:59 Neonat Indirect Bili Not Reportable 01/18/20 10:59 AST 28 U/L (14-36) 01/18/20 10:59 ALT 18 U/L (<35) 01/18/20 10:59 Alkaline Phosphatase 70 U/L (38-126) 01/18/20 10:59 Creatine Kinase 64 U/L (30-135) 01/19/20 05:24 CK-MB (CK-2) 0.39 ng/mL (<4.55) 01/19/20 05:24 Troponin I < 0.012 ng/mL 01/19/20 05:24 Total Protein 7.8 g/dL (6.3-8.2) 01/18/20 10:59 Albumin 4.2 g/dL (3.5-5.0) 01/18/20 10:59 Urine Color STRAW 01/18/20 10:35 Urine Appearance CLEAR 01/18/20 10:35 Urine pH 7.0 (5.0-9.0) 01/18/20 10:35 Ur Specific Beaman 1.010 01/18/20 10:35 Urine Protein NEGATIVE mg/dL (NEGATIVE) 01/18/20 10:35 Urine Glucose (UA) NEGATIVE mg/dL (NEGATIVE) 01/18/20 10:35 Urine Ketones NEGATIVE mg/dL (NEGATIVE) 01/18/20 10:35 Urine Blood NEGATIVE (NEGATIVE) 01/18/20 10:35 Urine Nitrite NEGATIVE (NEGATIVE) 01/18/20 10:35 Urine Bilirubin NEGATIVE (NEGATIVE) 01/18/20 10:35 Urine Urobilinogen NEGATIVE mg/dL (<2.0) 01/18/20 10:35 Ur Leukocyte Esterase NEGATIVE (NEGATIVE) 01/18/20 10:35 Urine WBC (Auto) 1 /HPF 01/18/20 10:35 Urine RBC (Auto) 1 /HPF 01/18/20 10:35 Squamous Epi Cells Auto 3 /HPF 01/18/20 10:35 Urine Mucus (Auto) RARE /LPF 01/18/20 10:35 Urine Ascorbic Acid NEGATIVE (NEGATIVE) 01/18/20 10:35 01/18/20 01/18/20 01/19/20 10:59 23:30 05:24 CK-MB (CK-2) 0.45 0.36 0.39 Troponin I < 0.012 < 0.012 < 0.012 Impressions: Head MRI 01/18/20 00:00 IMPRESSION: No acute abnormalities. Chest X-Ray 01/18/20 11:00 IMPRESSION: NO ACUTE RADIOGRAPHIC FINDING IN THE CHEST. Head CT 01/18/20 11:27 IMPRESSION: SLIGHTLY LIMITED STUDY. NORMAL BRAIN CT WITHOUT CONTRAST. EVIDENCE OF ACUTE STROKE: NO. Abdomen/Pelvis CT 01/18/20 11:28 IMPRESSION: Mild diverticulosis coli. No acute finding in the abdomen or pelvis. Plan Time Spent: Greater than 30 Minutes - Outpatients physical therapy and outpatient follow-up with the GI and rheumatology and cardiology Stroke Is this a Stroke Patient?: No Acute Heart Failure Is this a Heart Failure Patient?: No
== END 2020-01-20 11:49 | disposition home or self-care (01) | DRG 312 ==
LOC: ER 10:03 → EH 16:30 → ICU 22:46
PROVIDERS: ADMIT Family Medicine; ATTEND Family Medicine
DX: I95.2 Hypotension due to drugs (principal); K50.90 Crohn's disease, unspecified, without complications; R55 Syncope and collapse; T39.395A Adverse effect of other nonsteroidal anti-inflammatory drugs [NSAID], initial encounter; R21 Rash and other nonspecific skin eruption; M06.9 Rheumatoid arthritis, unspecified; I11.0 Hypertensive heart disease with heart failure; I50.9 Heart failure, unspecified; G89.4 Chronic pain syndrome; E86.1 Hypovolemia; E86.0 Dehydration; G43.909 Migraine, unspecified, not intractable, without status migrainosus; G47.30 Sleep apnea, unspecified; D89.0 Polyclonal hypergammaglobulinemia; F32.9 Major depressive disorder, single episode, unspecified; Z88.6 Allergy status to analgesic agent; Z88.8 Allergy status to other drugs, medicaments and biological substances; I25.2 Old myocardial infarction; Z86.73 Personal history of transient ischemic attack (TIA), and cerebral infarction without residual deficits; Z85.828 Personal history of other malignant neoplasm of skin
CPT/HCPCS: 36415; 70450; 70551; 71045; 74177; 80048; 80053; 81001; 82550; 82553; 83735; 84484; 85025; 85652; 87040; 87086; 93005; 93010; 94660; 96361; 96374; 96376; 99285; J1170; J3490; J7030; J7512

== ENCOUNTER 2020-01-31 17:20 | Emergency (ER) | payer MEDICARE, MEDICAID ==
--- NOTE | 2020-01-31 17:38 | ER Document Report ---
ED Neck/Back Problem - General Chief Complaint: Low Back Pain Stated Complaint: BACK,LEG PAIN Time Seen by Provider: 01/31/20 17:29 Primary Care Provider: ARIANNE HUBBARD MD [Primary Care Provider] - Follow up tomorrow Mode of Arrival: Ambulatory Information source: Patient Notes: 54-year-old female presents to ED for complaint of severe low back pain to the left going down the left leg. 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 She states she has had this for a long time but she has never had pain going down her left leg. She states she has not had any signs or symptoms of cauda equina, no loss of control of bowel bladder no saddle anesthesia, no loss of control or sensation to the lower extremities. She states it is just very painful across the left buttocks and down the left leg. She states she was admitted to the hospital last week for 3 days and was discharged on after she had allergic action to Strattera. She states she was having trouble walking she had blisters and then was discharged on Saturday. She states Saturday when she got up the pain was severe going down the left leg. Patient is alert oriented respirations regular nonlabored speaking in full sentences. Patient did walk into the triage room. Constitutional: Negative for fever. HENT: Negative for sore throat. Eyes: Negative for visual changes. Cardiovascular: Negative for chest pain. Respiratory: Negative for shortness of breath. Gastrointestinal: Negative for abdominal pain, vomiting or diarrhea. Genitourinary: Negative for dysuria. Musculoskeletal: Patient complains of pain to the left back left buttocks down the left leg. She states she has chronic pain but is never had pain in the buttocks and down the left leg before. See HPI Skin: Negative for rash. Neurological: Negative for headaches, see HPI 10 point ROS negative except as marked above and in HPI. VITAL SIGNS: Within normal limits. GENERAL: No acute distress, non-toxic appearance. HEAD: Normal with no signs of head trauma. EYES: PERRLA, EOMI, conjunctiva normal, no discharge. EARS: Hearing grossly intact. NOSE: Normal. THROAT: Oropharynx is normal. NECK: Normal range of motion, no tenderness, supple, no lymphadenopathy, No adenopathy, no JVD. CHEST: Clear breath sounds bilaterally. No wheezes, rales, or rhonchi. CARDIAC: Regular rate and rhythm. S1 and S2, without murmurs, gallops, or rubs. VASCULAR: No Edema. Peripheral pulses normal and equal in all extremities. ABDOMEN: Normal and soft with no tenderness, no masses or pulsatile masses. GASTROINTESTINAL: Bowel sounds normal GENITOURINARY: Normal, No tenderness LYMPATHTIC: No lymphadenopathy noted. MUSCULOSKELETAL: Good range of motion of all major joints. Extremities without clubbing, cyanosis or edema. Patient does have tenderness to the left lower back left buttocks and left thigh no redness no bruising. NEUROLOGICAL: Alert and oriented x 3. No focal sensory or strength deficits. Speech normal. Follows commands appropriately. PSYCHIATRIC: Normal Affect, judgement and mood. SKIN: Normal appearance with no rashes or lesions. TRAVEL OUTSIDE OF THE [place] IN LAST 30 DAYS: No - HPI Patient complains to provider of: Lower back Onset: Other - Saturday Where: Home Onset: Gradual Timing: Still present Quality of pain: Burning, Sharp Severity: Moderate Pain Level: 4 Recent injury: No Associated symptoms: Like prior neck/back pain, Radiation to leg, Lower back pain Exacerbated by: Movement of trunk Relieved by: Nothing Similar symptoms previously: Yes Recently seen / treated by doctor: Yes - Related Data Allergies/Adverse Reactions: morphine [Morphine] Allergy (Mild, Verified 01/31/20 17:29) aspirin [Aspirin] Allergy (Verified 01/31/20 17:29) NSAIDS (Non-Steroidal Anti-Inflamma [Nsaids] Allergy (Verified 01/31/20 17:29) pregabalin [From Lyrica] Allergy (Verified 01/31/20 17:29) ustekinumab [From Stelara] Allergy (Verified 01/31/20 17:29) Past Medical History - General Information source: Patient - Social History Smoking Status: Never Smoker Frequency of alcohol use: None Drug Abuse: None Lives with: Family Family History: Reviewed & Not Pertinent Patient has suicidal ideation: No Patient has homicidal ideation: No - Past Medical History Cardiac Medical History: Reports: Hx Congestive Heart Failure, Hx Heart Attack - "mild" 2006, Hx Hypertension Pulmonary Medical History: Reports: None EENT Medical History: Reports: None Neurological Medical History: Reports: Hx Cerebrovascular Accident - Patient claims to have had a stroke in May 2012. Endocrine Medical History: Reports: None Renal/ Medical History: Reports: None Malignancy Medical History: Reports: Hx Skin Cancer GI Medical History: Reports: Hx Crohn's Disease, Hx Diverticulitis, Hx Gastroesophageal Reflux Disease Musculoskeletal Medical History: Reports Hx Arthritis, Reports Hx Musculoskeletal Deformity Skin Medical History: Reports None Psychiatric Medical History: Reports: Hx Depression Traumatic Medical History: Reports: None Infectious Medical History: Reports: None Past Surgical History: Reports: Hx Section - x5, Hx Cholecystectomy, Hx Herniorrhaphy, Hx Tonsillectomy - Immunizations Hx Diphtheria, Pertussis, Tetanus Vaccination: Yes - unsure of date Physical Exam - Vital signs Vitals: Temp Pulse Resp BP Pulse Ox 98.1 F 90 16 173/77 H 100 01/31/20 17:25 01/31/20 17:25 01/31/20 17:25 01/31/20 17:25 01/31/20 17:25 Course - Re-evaluation Re-evalutation: 01/31/20 20:54 Patient came in for low back pain with radiation into the left buttocks and down the left leg. She states she has chronic low back pain but is never had it radiating across to her left buttocks and down her leg. We did treat her with Toradol earlier I did order Lidoderm earlier but she was kind of scared to take it at the time but I have placed her on her before discharge. I also called Dr. Burnett who is on-call for Dr. Hubbard. He stated to give the patient a milligrams of prednisone and have her follow-up with Dr. Hubbard in the morning. Patient states she had just taken 20 mg of prednisone that around 5 or 6:00 tonight. So she took another 20 mg now. She is supposed to take 1 more dose tomorrow. She is also agreed that she will call Dr. Hubbard first thing in the morning to get an appointment tomorrow. I have given her written report of the x-rays. She has that with her to take I have also given her instructions on ice packs warm packs and back exercises. - Vital Signs Vital signs: Temp Pulse Resp BP Pulse Ox 97.8 F 66 20 162/74 H 99 01/31/20 20:51 01/31/20 20:51 01/31/20 20:51 01/31/20 20:51 10/25/20 20:51 - Diagnostic Test Radiology reviewed: Image reviewed, Reports reviewed Discharge - Discharge Clinical Impression: Low back pain Qualifiers: Chronicity: unspecified Back pain laterality: left Sciatica presence: with sciatica Sciatica laterality: sciatica of left side Qualified Code(s): M54.42 - Lumbago with sciatica, left side Condition: Stable Disposition: HOME, SELF-CARE Additional Instructions: Chronic Back Pain Chronic back pain (pain persisting longer than three months) is a common problem. A medical evaluation can look for herniated disc, arthritis, osteoporosis, tumors, and infections. But at least half the time, there's no obvious treatable cause. Anxiety and depression tend to worsen back pain. Ibuprofen or other anti-inflammatory medicine can help. A heating pad, used for 15-20 minutes at a time, can ease pain. For this type of back pain, narcotic medicines should be avoided. Muscle relaxers are rarely helpful unless you're having spasms. Activity is important. Find an aerobic exercise program that your back can tolerate. Too much rest makes back pain worse. Specific back exercises are usually prescribed to strengthen the back and abdominal muscles. Often, a physical therapist can help. Avoid heavy lifting, working while bent over, or standing with both knees straight. Most back pain patients do better with a firm mattress. If new symptoms of a "herniated disc" (radiation of pain, numbness, or tingling down the back of the leg or weakness in the leg) occur, you should be re-examined. Take to have chronic pain and you know you have stenosis of the spine. You also have multilevel arthritis in your back. I have given you a written report of the x-ray you have been treated with Toradol IM and a Lidoderm patch and you have taken an extra dose of your prednisone tonight as per Dr. Burnett's instructions. You are to call Dr. Hubbard first thing in the morning to get a follow-up appointment. When you get home you are to take your chronic pain management medication oxycodone before going to bed. LOW BACK PAIN: Three out of every four people will have an episode of disabling back pain during their lifetime. Most commonly the pain is due to straining of the muscles and ligaments in the low back. Usual treatment includes: (1) Rest on a firm surface. Avoid lying on your stomach. (2) Ice pack the painful area. After a few days, gentle heat may be used intermittently to relax the area, or ice packs can be continued. (3) Medication may be needed -- muscle relaxers and antiinflammatory medicines are commonly used. (4) As the back improves, exercises are prescribed to strengthen the back and abdominal muscles. Your doctor will advise you on the proper care for your back at each stage in your recovery. You may be better in a few days -- or healing may take several weeks. If new symptoms of a "herniated disc" (radiation of pain, numbness, or tingling down the back of the leg or weakness in the leg) occur, you should be re-examined. Further testing may be necessary. USE OF TYLENOL (ACETAMINOPHEN): Acetaminophen may be taken for pain relief or fever control. It's much safer than aspirin, offering a wider range of "safe" dosages. It is safe during . Some brand names are Tylenol, Panadol, Datril, Anacin 3, Tempra, and Liquiprin. Acetaminophen can be repeated every four hours. The following are maximum recommended dosages: WEIGHT Dose Drops Elixir Chewable(80mg) (LBS.) drprs=droppers tsp=teaspoon 6 40 mg 0.4 ml (1/2) 6-11 80 mg 0.8 ml (full) tsp 1 tab 12-16 120 mg 1 1/2 drprs 3/4 tsp 1 1/2 tabs 17-23 160 mg 2 drprs 1 tsp 2 tabs 24-30 240 mg 3 drprs 1 1/2 tsp 3 tabs 30-35 320 mg 2 tsp 4 tabs 36-41 360 mg 2 1/4 tsp 4 1/2 tabs 42-47 400 mg 2 1/2 tsp 5 tabs 48-53 480 mg 3 tsp 6 tabs 54-59 520 mg 3 1/4 tsp 6 1/2 tabs 60-64 560 mg 3 1/2 tsp 7 tabs 65-70 600 mg 3 3/4 tsp 7 1/2 tabs 71-76 640 mg 4 tsp 8 tabs 77-82 720 mg 4 1/2 tsp 9 tabs 83-88 800 mg 5 tsp 10 tabs >89 pounds or adults 650 mg to 900 mg Acetaminophen can be repeated every four hours. Maximum dose not to exceed 4000 mg a day. These maximum recommended dosages are slightly higher than the dosages written on the product container, but these dosages are very safe and below the toxic dosage for acetaminophen. ICE PACKS: Apply ice packs frequently against the painful area. Many different schedules are recommended, such as "20 minutes on, 20 minutes off" or "one hour ice, two hours rest." If you need to work, you may need to go longer between ice treatments. You should plan to have the area ice packed AT LEAST one fourth of the time. The ice should be applied over the wrap, tape, or splint, or over a layer of cloth -- not directly against the skin. Some ice bags have a built-in cloth and can be put directly on the skin. WARM PACKS: After approximately two days, apply gentle heat (such as a heating pad or hot water bottle) for about 20 to 30 minutes about every two hours -- at least four times daily. Warmth and elevation will help you make a more rapid r ecovery, and will ease the pain considerably. Do not use HOT heat, and never apply heat for longer than 30 minutes. The continuous heat can invisibly damage skin and muscles -- even when no burn is seen on the surface. Damaged muscles can make you MORE sore. Stretching Exercises for the Back The physician has recommended that you begin stretching exercises for your back. These are often used even while the back is painful. However, you should notify the physician if the activities seem to increase your pain. PELVIC TILT: Lie flat on your back with knees bent. Tighten your stomach and buttock muscles so it flattens your lower back against the floor. Hold 10 seconds. Repeat 10 times, twice daily. KNEE RAISE: Lying on the back with knees bent, raise one knee to your chest, then the other. Hold both knees against the chest 10 seconds, then lower one knee at a time. Repeat 10 times, twice daily. PARTIAL TRUNK RAISE: Lie face down, arms at your sides. Keeping your waist on the floor, use your arms raise your chest up. Support yourself on your elbows for 30 seconds. Repeat twice daily, increasing the time to two minutes as you recover. FOLLOW-UP CARE: If you have been referred to a physician for follow-up care, call the physicians office for an appointment as you were instructed or within the next two days. If you experience worsening or a significant change in your symptoms, notify the physician immediately or return to the Emergency Department at any time for re-evaluation. Forms: Elevated Blood Pressure Referrals: ARIANNE HUBBARD MD [Primary Care Provider] - Follow up tomorrow
[2020-01-31] MEDS ORDERED: KETOROLAC TROMETHAMINE INJ/PF 30 MG/1 ML SDV IM ONE (17:39)
[2020-01-31] MEDS ORDERED: LIDOCAINE 5% (700 MG) TRANSDERMAL ADH..PATCH TP ONE (17:49)
--- NOTE | 2020-01-31 18:12 | RADIOLOGY REPORT (SQ) ---
EXAM DESCRIPTION: L SPINE WHOLE IMAGES COMPLETED DATE/TIME: 01/31/2020 5:51 pm REASON FOR STUDY: low back pain COMPARISON: None. NUMBER OF VIEWS: Five views including obliques. TECHNIQUE: AP, lateral, oblique, and sacral radiographic images acquired of the lumbar spine. LIMITATIONS: None. FINDINGS: MINERALIZATION: Normal. SEGMENTATION: Normal. No transitional anatomy. ALIGNMENT: Normal. VERTEBRAE: Maintained height. No fracture or worrisome bone lesion. DISCS: Multilevel disc space narrowing with osteophytes. POSTERIOR ELEMENTS: Pedicles and facets are intact. No pars defect or posterior arch defects. Facet arthropathy is present. HARDWARE: None in the spine. PARASPINAL SOFT TISSUES: Normal. PELVIS: Intact as visualized. No fractures or worrisome bone lesions. SI joints intact. OTHER: No other significant finding. IMPRESSION: SPONDYLOSIS WITHOUT BONE LESION OR FRACTURE. TECHNICAL DOCUMENTATION: JOB ID: [id number] 2010 [employer]- All Rights Reserved Reading location - IP/workstation name: [email or web address]
[2020-01-31 21:03] VITALS: BP 162/72
== END 2020-01-31 21:00 | disposition home or self-care (01) ==
LOC: ER 17:20
DX: M47.26 Other spondylosis with radiculopathy, lumbar region (principal); I10 Essential (primary) hypertension; Z88.6 Allergy status to analgesic agent; Z88.5 Allergy status to narcotic agent; Z88.8 Allergy status to other drugs, medicaments and biological substances
CPT/HCPCS: 99284; 96372; 72110; J1885; A9270

== ENCOUNTER 2020-02-17 02:36 | Emergency (ER) | payer MEDICARE, MEDICAID ==
[2020-02-17] MEDS ORDERED: HYDROMORPHONE HCL INJ/PF 2 MG/ML AMPULE IM ONE ×2 (03:15→07:11)
[2020-02-17] MEDS ORDERED: CYCLOBENZAPRINE HCL 10 MG TABLET PO ONE (03:16)
--- NOTE | 2020-02-17 03:28 | ER Document Report ---
ED General - General Chief Complaint: Back Pain Stated Complaint: LOWER BACK PAIN RADIATING TO LEG Time Seen by Provider: 02/17/20 02:40 Primary Care Provider: ARIANNE HUBBARD MD [Primary Care Provider] - Follow up as needed TRAVEL OUTSIDE OF THE [place] IN LAST 30 DAYS: No - HPI Notes: Patient is a 54-year-old female with a history of Crohn's disease, on intermittent steroid therapy, who presents to the emergency department for evaluation of increased low back pain. She has had low back pain in the past, but recently started radiating into the left leg. She denies any bowel or bladder incontinence, no saddle anesthesia, no focal numbness or weakness. No dysuria, hematuria, urinary frequency. She takes oxycodone 15 mg at home, states that this was not offering her any help, so she presents here to the ED for further evaluation. She has followed up with Dr. 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 She said no fevers or chills. Some nausea when her pain is severe, but no emesis. - Related Data Allergies/Adverse Reactions: morphine [Morphine] Allergy (Mild, Verified 02/17/20 03:04) aspirin [Aspirin] Allergy (Verified 02/17/20 03:04) NSAIDS (Non-Steroidal Anti-Inflamma [Nsaids] Allergy (Verified 02/17/20 03:04) pregabalin [From Lyrica] Allergy (Verified 02/17/20 03:04) ustekinumab [From Stelara] Allergy (Verified 02/17/20 03:04) Past Medical History - General Information source: Patient, Emergency Med Personnel, [facility] Records - Social History Smoking Status: Never Smoker Chew tobacco use (# tins/day): No Frequency of alcohol use: None Drug Abuse: None Family History: Reviewed & Not Pertinent - Past Medical History Cardiac Medical History: Reports: Hx Congestive Heart Failure, Hx Heart Attack - "mild" 2006, Hx Hypertension Neurological Medical History: Reports: Hx Cerebrovascular Accident - Patient claims to have had a stroke in May 2012.. Denies: Hx Parkinson's Disease Renal/ Medical History: Denies: Hx Peritoneal Dialysis Malignancy Medical History: Reports: Hx Skin Cancer GI Medical History: Reports: Hx Crohn's Disease, Hx Diverticulitis, Hx Gastroesophageal Reflux Disease Musculoskeletal Medical History: Reports Hx Arthritis, Reports Hx Musculoskeletal Deformity, Denies Hx Systemic Lupus Erythematosus Psychiatric Medical History: Reports: Hx Depression Past Surgical History: Reports: Hx Section - x5, Hx Cholecystectomy, Hx Herniorrhaphy, Hx Tonsillectomy - Immunizations Hx Diphtheria, Pertussis, Tetanus Vaccination: Yes - unsure of date Review of Systems - Review of Systems Constitutional: No symptoms reported EENT: No symptoms reported Cardiovascular: No symptoms reported Respiratory: No symptoms reported Gastrointestinal: No symptoms reported Genitourinary: No symptoms reported Musculoskeletal: See HPI Skin: No symptoms reported Neurological/Psychological: No symptoms reported -: Yes All other systems reviewed and negative Physical Exam - Vital signs Vitals: Resp Pulse Ox 19 100 02/17/20 02:59 02/17/20 02:59 - Notes Notes: This is a 54-year-old female who appears her stated age, in a moderate amount of distress. She is in a right lateral, position, trembling intermittently with pain. Vital signs reviewed, please refer to chart. Head is normocephalic, atraumatic. Pupils equal round, reactive to light. Neck is supple without meningismus. Heart is regular rate and rhythm. Lungs are clear to auscultation bilaterally. Abdomen is soft, nontender, normoactive bowel sounds throughout. Extremities without cyanosis, clubbing. Posterior calves are nontender. Peripheral pulses are equal. Skin is warm and dry. Patient is awake, alert, neurological exam is nonfocal. Examination of the spine yields no midline tenderness or step-off. She has paraspinal musculature tenderness noted from approximately L2-L5 and into the SI joint on the left with associated spasm. She has tenderness overlying the inguinal ligament as well. Patellar reflexes +1, Achilles reflex +1 on the left. Unable to perform straight leg raise testing secondary to pain. Strength testing limited secondary to pain. Course - Re-evaluation Re-evalutation: 02/17/20 03:27 Patient is a 54-year-old female presents to the emergency department for evaluation of back pain. She was seen here recently with same. She had a plain lumbar spine film which did not show any acute process. This is, however, patient who has increased risk of fracture given intermittent steroid use. She received fentanyl in route with little in the way of relief. She was admini stered Dilaudid 2 mg IM, Flexeril [address] lumbar spine is ordered. She does not show any red flag symptoms at this time concerning for cauda equina. We will try for symptomatic management. She is currently stable. 02/17/20 05:23 Patient is feeling somewhat improved. Again she has no neurological deficits. Her CT fails to show any signs of an acute fracture or subluxation. She may in fact need an MRI, but I do not see any indication for an emergent one at this time. She already has referral on for follow-up. She is already on oxycodone at home for pain. I will send her home with a prescription for Flexeril. She is to return to the ED with worsening. - Vital Signs Vital signs: Temp Pulse Resp BP Pulse Ox 98.2 F 21 H 100 02/17/20 03:00 02/17/20 03:00 02/17/20 03:00 Discharge - Discharge Clinical Impression: Lumbar radiculopathy, acute Condition: Stable Disposition: HOME, SELF-CARE Instructions: Low Back Pain ([facility]) Additional Instructions: Continue your regular pain medication as directed. Take Flexeril as needed for severe pain. Please watch for drowsiness with this medication. Follow-up with your primary care provider as well as the specialist to which you have been referred. If you develop fevers, inability to urinate, numbness, weakness, or any other new or concerning symptoms, please return immediately to the emergency department for evaluation. Referrals: ARIANNE HUBBARD MD [Primary Care Provider] - Follow up as needed
--- NOTE | 2020-02-17 05:16 | RADIOLOGY REPORT (SQ) ---
CT of the lumbar spine: 02/17/2020 4:13 AM [employer]EDGE [employer]ER TECHNIQUE: Multiple axial contiguous images were obtained through the lumbar spine without intravenous contrast administered. Coronal and sagittal reconstructed images were also obtained and examined. This exam was performed according to our departmental dose-optimization program, which includes automated exposure control, adjustment of the mA and/or KV according to the patient's size and/or use of iterative reconstruction technique. HISTORY: 54-year-old patient with lower back pain. COMPARISON:None available FINDINGS: Minimal intervertebral disc space narrowing is seen. The visualized sacroiliac joints appear grossly unremarkable. There are no findings to suggest an acute fracture or subluxation. There are minimal disc protrusions at L4/L5 and L3/L4 noted. The visualized sacroiliac joints are unremarkable. The visualized intrapelvic organs also appear unremarkable. There are no findings to suggest hydronephrosis. IMPRESSION: There are no findings to suggest an acute fracture or subluxation of the lumbar spine.
[2020-02-17] MEDS ORDERED: HYDROMORPHONE HCL INJ/PF 2 MG/ML AMPULE IV ONE (06:52)
--- NOTE | 2020-02-17 06:57 | ER Document Report ---
Doctor's Note Notes: 02/17/20 06:55 54-year-old female that was signed up for discharge when I entered the emergency department this morning. Patient states she is refusing to leave until she is seen and evaluated by another provider. History as recorded including rheumatoid arthritis. Patient states she has been having some left lower back pain without trauma radiating down the left leg. She was seen here previously for this with an unremarkable x-ray. Today she had a CT scan that was unremarkable for acute fractures or pathology. Does not radiate to her abdomen. She has no fevers or vomiting. No diarrhea or dysuria. Patient was admitted 1 month ago for syncope at the time of also having some hives started on a new rheumatologic medication that she is been discontinued. She has seen her primary care physician Dr. Radha Dinero over the last 2 weeks and has an appointment upcoming with the orthopedic surgeon. Patient is on 50 mg of oxycodone as needed for pain both for her back and for her Crohn's disease according to patient report. Patient has no incontinence, the pain is only to the left leg, no calf pain or swelling, no chest pain or shortness of breath. I do believe discitis, epidural abscess, spinal cord compression, osteomyelitis, DVT/PE to be unlikely. I have redose the patient's pain medications and I will contact the primary care physician for further assessment. 02/17/20 07:12 I was able to call and speak directly with the primary care physician. He states he will see the patient this morning in his office. Patient is very comfortable with this plan. Patient does agree to discharge at this time.
[2020-02-17 07:34] VITALS: BP 174/78
--- OUTSIDE RECORDS SUMMARY | 2020-02-18 17:49 | XMS REPORT ---
:1965 Author Organization [facility] Address [address] [place] [address] Care Team Providers Name Role Phone DineroIsela Primary Care Physician Unavailable Tejinder John Attending Clinician Unavailable Wilner SMITH Attending Clinician Unavailable Wilner Attending Clinician Unavailable Allergies, Adverse Reactions, Alerts Allergy Name Allergy Status Severity Reaction(s) Onset Inactive Treat ing Comments Type Date Date Clinician MORPHINE Drug Active U 2017-04 allergy 0- 00:00: 00 Morphine Morphine Active Hives Derivatives Derivatives Aspirin TABS Aspirin Active TABS NSAIDs NSAIDs Active Medications Ordered Filled Start Stop Current Ordering Indication Dosage Frequency Signature Comments Components Medication Medication Date Date Medication? Clinician (SIG) Name Name predniSONE 2019-04 Yes Rosas predniSONE 5 MG Oral -06 John 5 MG Oral Tablet 00:00: D.O. Tablet 00 take two tabs po q day for 7 days, then one tab po q day for 7 days and off Quantity: 180 Refills: 3 Dora D.Rosas Jose Start : 12-Feb-2020 Active Doxepin HCl 2019-04 Yes Rosas Doxepin - 100 MG -06 John HCl - 100 Oral 00:00: D.O. MG Oral Capsule 00 Capsule TAKE ONE CAPSULE BY MOUTH AT BEDTIME Quantity: 90 Refills: 0 Dora D.Rosas Jose Start : 12-Feb-2020 Active diphenhydrA 2019-04 Yes Rosas Q0.3333D diphenhyd r MINE-Zinc -06 Dora AMINE-Zinc Acetate 00:00: D.O. Acetate 2-0.1 % 00 2-0.1 % External External Cream Cream APPLY SPARINGLY TO AFFECTED AREA(S) 3 TIMES A DAY Quantity: 1 Refills: 0 Dora Currie.Rosas Jose Start : 12-Feb-2020 Active 28 GM Tube Famotidine 2019-04 Yes Rosas Famotidine 20 MG Oral 1-06 John 20 MG Oral Tablet 00:00: D.O. Tablet 00 TAKE 1 TABLET AT BEDTIME. Quantity: 90 Refills: 0 Rosas John D.O. Start : 12-Feb-2020 Active Banophen 25 Yes 0 Banophen MG Oral 9-29 25 MG Oral Capsule 00:00: Capsule TK 00 1 T PO QD HS PRN Quantity: 30 Refills: 0 ,,, Start : 0Active Triamcinolo Yes 0 Triamcinol ne - one Acetonide 00:00: Acetonide 0.1 % 00 0.1 % External External Ointment Ointment GERARD EXT AA BID Quantity: 30 Refills: 0 ,,, Start : 0Active Pain Yes 0 Pain Relieving 4 8-28 Relieving % External 00:00: 4 % Cream 00 External Cream GERARD TO SKIN REMOVE AFTER 12 HOURS BID Quantity: 15 Refills: 0 ,,, Start : 0Active VSL#3 Oral 2018-04 Yes Rosas VSL#3 Oral Packet 2-27 John Packet 00:00: D.O. TAKE ONE 00 PO BID Quantity: 90 Refills: 0 Rosas John D.O. Start : 9Active Humira Pen No Rosas Humira Pen 40 MG/0.4ML 7-10 John 40 Subcutaneou 00:00: D.O. MG/0.4ML s 00 Subcutaneo Pen-injecto us r Kit Pen-inject or Kit Refills: 0 Rosas John D.O. Start : 9Active methylPREDN Yes Rosas methylPRED ISolone 4 6-21 Dora NISolone 4 MG Oral 00:00: D.O. MG Oral Tablet 00 Tablet Therapy Therapy Pack Pack TAKE DIRECTED Quantity: 1 Refills: 0 Rosas John D.O. Start : 9Active 21 Tablet Pack Losartan Yes 0 Losartan Potassium 8-08 Potassium 50 MG Oral 00:00: 50 MG Oral Tablet 00 Tablet Quantity: 90 Refills: 0 ,,, Start : 13-Nov-2017 Active CPAP 2016-04 Yes 0 CPAP as 1-20 directed 00:00: Refills: 0 00 ,,, Start : 7Active Tylenol 2016-04 Yes 0 Tylenol Extra 0-26 Extra Strength 00:00: Strength 500 MG Oral 00 500 MG Tablet Oral Tablet TAKE 1 TABLET EVERY 4 TO 6 HOURS NEEDED. Refills: 0 ,,, Start : 7Active Voltaren 1 2016-04 Yes 0 QD Voltaren 1 % GEL 0-26 % GEL 00:00: APPLY 00 SPARINGLY TO AFFECTED AREA(S) ONCE DAILY Refills: 0 ,,, Start : 7Active 100 GM Tube oxyCODONE Yes 0 1 oxyCODONE HCl - 15 MG 9-07 HCl - 15 Oral Tablet 00:00: MG Oral 00 Tablet TAKE 1 TABLET EVERY 4 HOURS NEEDED FOR PAIN. Refills: 0 ,,, Start : 13-Dec-2016 Active Mupirocin 2 Yes 0 Mupirocin % External 8-30 2 % Ointment 00:00: External 00 Ointment Quantity: 22 Refills: 0 ,,, Start : 7Active Mometasone Yes 0 Mometasone Furoate 50 8-07 Furoate 50 MCG/ACT 00:00: MCG/ACT Nasal 00 Nasal Suspension Suspension Quantity: 17 Refills: 0 ,,, Start : 12-Nov-2016 Active Vitamin D Yes 0 Vitamin D (Ergocalcif 7-13 (Ergocalci trish) 1.25 00:00: ferol) MG (37248 00 1.25 MG UT) Oral (46209 UT) Capsule Oral Capsule TK ONE C PO Q WEEK Quantity: 4 Refills: 0 ,,, Start : 6Active amLODIPine Yes 0 amLODIPine Besylate 5 3-24 Besylate 5 MG Oral 00:00: MG Oral Tablet 00 Tablet TK 1 T PO QD Quantity: 90 Refills: 0 ,,, Start : 6Active Pantoprazol 2014-04 Yes 0 Pantoprazo e Sodium 40 2-11 le Sodium MG Oral 00:00: 40 MG Oral Tablet 00 Tablet Delayed Delayed Release Release TK 1 T PO BEFORE BREAKFAST Quantity: 90 Refills: 0 ,,, Start : 5Active Zofran 4 MG Yes 0 Zofran 4 Oral Tablet MG Oral Tablet as directed Refills: 0 ,,, Active Diovan 160 Yes 0 QD Diovan 160 MG Oral MG Oral Tablet Tablet TAKE 1 TABLET DAILY FOR BLOOD PRESSURE. 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), disease), lumbar lumbar Fatigue Fatigue Problem Active Low back Low back Problem Active pain with pain with sciatica sciatica Chronic Chronic Problem Active upper back upper back pain pain Crohn's Crohn's Problem Active disease disease Jaw pain Jaw pain Problem Active Parotiditis 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 factor factor Immune Immune Problem Active disorder disorder Chronic Chronic Problem Active inflammator inflammator y arthritis y arthritis Crohn's Crohn's Problem Active related related arthritis arthritis Vitamin D Vitamin D Problem Active deficiency, deficiency, unspecified unspecified 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 by serum by serum protein protein electrophor electrophor esis esis Procedures Procedure Date / Time Performed Performing Clinician Reno campbell CRP 2020-02-12 00:00:00 CMP(Complete Metabolic Panel) 2020-02-12 00:00:00 CBC 2020-02-12 00:00:00 Sed Rate 2020-02-12 00:00:00 Urinalysis 2020-02-12 00:00:00 L - Immunoglobulins A/E/G/M, Serum 2020-02-12 00:00:00 L - Prot+CreatU (Random) 2020-02-12 00:00:00 L - MONICA w/Reflex if Positive 2020-02-12 00:00:00 L - Complement C3, Serum 2020-02-12 00:00:00 L - IgE Allergen Profile, Basic 2020-02-12 00:00:00 Food L - Allergens w/Total IgE Area 2 2020-02-12 00:00:00 L - Antihistone Antibodies 2020-02-12 00:00:00 CMP(Complete Metabolic Panel) 2019-11-25 00:00:00 CRP 2019-11-25 00:00:00 Sed Rate 2019-11-25 00:00:00 Urinalysis 2019-11-25 00:00:00 CBC 2019-11-25 00:00:00 L - Prot+CreatU (Random) 2019-11-25 00:00:00 L - Protein Elec + Interp, Serum 2019-11-25 00:00:00 KNEE ARTHROSCOPY/SURGERY 2018-03-11 10:25:00 OFFICE/OUTPATIENT VISIT, [facility] 2018-01-31 14:30:00 History of Cholecystectomy History of Tonsillectomy History of Section History of Biopsy Skin Results Test Description Test Time Test Comments Text Results Atomic Results Result Comments Urinalysis 2020-02-12 11:46:00 Test Item Value Reference Range Comments Urine Color (test code = Urine Color) LT. YELLOW Yellow Urine Clarity (test code = Urine Clarity) CLEAR Clear Urine Glucose (test code = Urine Glucose) NEGATIVE Negati ve Urine Ketones (test code = Urine Ketones) NEGATIVE Negati ve Urine Bilirubin (test code = Urine Bilirubin) NEGATIVE Ne gative Urine Specific [place] (test code = Urine Specific [place]) 1.01 5 1.010-1.030 Urine Blood (test code = Urine Blood) NEGATIVE Negative Urine pH (test code = Urine pH) 7.5 5.0-8.0 Urine Protein (test code = Urine Protein) NEGATIVE Negati ve Urine Urobilinogen (test code = Urine Urobilinogen) 0.2 Eu/dl 0.2 Urine Nitrites (test code = Urine Nitrites) NEGATIVE Nega tive Urine Leukocytes (test code = Urine Leukocytes) NEGATIVE Negative [id number] 11:46:00 Test Item Value Reference Range Comments White Blood Cell (test code = White Blood Cell) 8.2 K/uL 3.5-11.1 Red Blood Cell (test code = Red Blood Cell) 4.05 {M/uL} 3.69 -4.87 Hemoglobin (test code = Hemoglobin) 11.3 g/dL 11.4-14.4 Hematocrit (test code = Hematocrit) 34 % 33-41 Mean Corpuscular Volume (test code = Mean 84.7 fL 79.0-9 5.0 Corpuscular Volume) Mean Corpuscular Hemoglobin (test code = Mean 27.9 pg/mL 27 .0-33.0 Corpuscular Hemoglobin) Mean Corpuscular Hemoglobin Concentration (test 32.9 g/dL 33.5-35.5 code = Mean Corpuscular Hemoglobin Concentration) Red Cell Distribution Width (test code = Red 14.5 % 12. 0-15.0 Cell Distribution Width) Platelet (test code = Platelet) 287 K/uL 130-353 Mean Platelet Volume (test code = Mean Platelet 9.0 fL 7.5-10.7 Volume) Neutrophil Count, absolute (test code = 7.1 K/uL 1.9-7.2 Neutrophil Count, absolute) Neutrophil Count Percentage (test code = 87.5 % 43.0-72 .0 Neutrophil Count Percentage) Lymphocyte Count, absolute (test code = 0.8 K/uL 1.1-2.7 Lymphocyte Count, absolute) Lymphocyte Count Percentage (test code = 9.9 % 17.0-44 .0 Lymphocyte Count Percentage) Monocyte Count, absolute (test code = Monocyte 0.2 K/uL 0 .3-0.8 Count, absolute) Monocyte Count Percentage (test code = Monocyte 2.1 % 4.5-12.4 Count Percentage) Eosinophil Count, absolute (test code = 0.0 K/uL 0.0-0.5 Eosinophil Count, absolute) Eosinophil Count Percentage (test code = 0.1 % 0.7-7.8 Eosinophil Count Percentage) Basophil Count, absolute (test code = Basophil 0.0 K/uL 0 .0-0.1 Count, absolute) Basophil Count Percentage (test code = Basophil 0.2 % 0.2-1.1 Count Percentage) Nucleated Red Blood Cell, absolute (test code = 0.00 K/uL 0.00-0.00 Nucleated Red Blood Cell, absolute) Nucleated Red Blood Cell, percentage (test code 0.00 % 0.00-0.00 = Nucleated Red Blood Cell, percentage) [id number] 11:46:00 Test Item Value Reference Range Comments C-Reactive Protein (test code = C-Reactive Protein) 9 mg/L <10 CMP(Complete Metabolic Panel)2020-02-12 11:46:00 Test Item Value Reference Range Comments Glucose (test code = Glucose) 92 mg/dL 74-106 Sodium (test code = Sodium) 140 mmol/L 135-145 Potassium (test code = Potassium) 4.2 mmol/L 3.5-5.3 Chloride (test code = Chloride) 101 mmol/L 98-107 CO2 (test code = CO2) 31 mmol/L 22-30 Creatinine, serum (test code = Creatinine, serum) 1.00 mg/dL 0.10-1.04 Glomerular Filtration Rate (test code = >60 >60 Glomerular Filtration Rate) Glomerular Filtration Rate AA (test code = >60 >60 Glomerular Filtration Rate AA) Blood Urea Nitrogen (test code = Blood Urea 16 mg/dL 7-17 Nitrogen) Calcium (test code = Calcium) 9.3 mg/dL 8.4-10.5 Phosphorus (test code = Phosphorus) 3.3 mg/dL 2.5-4.5 Total Protein (test code = Total Protein) 7.6 g/dL 6.3-8. 2 Albumin (test code = 83076-1) 4.2 g/dL 3.5-5.0 Total Bilirubin (test code = Total Bilirubin) 0.3 mg/dL 0. 2-1.3 Bilirubin, unconj (test code = Bilirubin, unconj) 0.2 mg/dL 0.0-1.1 Bilirubin, Direct (test code = Bilirubin, Direct) 0.1 mg/dL 0.0-0.4 Alkaline Phosphatase (test code = Alkaline 67 U/L 20-15 0 Phosphatase) Alanine Transaminase (test code = Alanine 25 U/L 0-35 Transaminase) Aspartate Aminotransferase (test code = Aspartate 20 U/L 3-36 Aminotransferase) Sed [id number] 11:46:00 Test Item Value Reference Range Comments Erythrocyte Sedimentation Rate (test code = 82 {mm/hr} 0-30 Erythrocyte Sedimentation Rate) V132-DqR [id number] 11:46:00 Test Item Value Reference Range Comments S265-QfR Milk (test code = <0.10 Class 0 7258-7) B722-TqM Wheat (test code = <0.10 Class 0 6276-0) S997-ZpZ [place] (test code = <0.10 Class 0 6087-1) J629-NzM Peanut (test code = <0.10 Class 0 6206-7) U150-NbG Soybean (test code = <0.10 Class 0 6248-9) B130-YuA Pork (test code = <0.10 Class 0 6219-0) U976-NwR Beef (test code = <0.10 Class 0 6039-2) TB95-SyZ Food Mix (Seafoods) Negative All ergens in this mix are: Blue (test code = 33432-6) mussel Fis h [place] Shrimp Tuna V013-DqU Egg, Whole (test <0.10 Class 0 code = 7291-8) O461-VlZ Chocolate/[place] <0.10 Class 0 (test code = 6080-6) [facility] performed at: [BN] [address], [place], [address], , Product Safety Compliance Leader: Odessa Butler MDL - Allergens w/Total IgE Area [id number] 11:46:00 Test Item Value Reference Range Comments Class Description (test code = Comment Levels of Specific IgE Class Description) Class Ron cription of Class ----- --------- < 0.10 0 Negat nikki 0.10 - 0.31 0/I Equivocal/Low 0.32 - 0.55 I Low 0.56 - 1.40 II Moderate 1.41 - 3.90 III High 3.91 - 19.00 IV Very High 19.01 - 100.00 V Very High >100.00 Very High J117-SmO D pteronyssinus; 2.01 kU/L Class III Abnormal (test code = 6096-2) X281-KpF D farinae; Abnormal 2.41 kU/L Class III (test code = 6095-4) I856-MxC Cat Dander (test code <0.10 Class 0 = 6833-8) E902-JuR Dog Dander (test code <0.10 Class 0 = 6098-8) E196-ZeH [place] Grass (test <0.10 Class 0 code = 6041-8) J637-BqQ Adiel Grass (test <0.10 Class 0 code = 6265-3) N682-CuZ Bashir Grass (test <0.10 Class 0 code = 6152-3) E427-YbA Cockroach, Croatian <0.10 Class 0 (test code = 6078-0) N964-IcX Penicillium chrysogen <0.10 Class 0 (test code = 6212-5) Y764-NvK Cladosporium herbarum <0.10 Class 0 (test code = 6075-6) V425-MnG Aspergillus fumigatus <0.10 Class 0 (test code = 6025-1) G289-SyT Alternaria alternata <0.10 Class 0 (test code = 6020-2) X534-PeP Maple/[place] (test <0.10 Class 0 code = 7155-5) D528-PaD Common Silver Birch <0.10 Class 0 (test code = 54246-7) I057-UwK Golden, Mountain (test <0.10 Class 0 code = 6178-8) M715-AjZ [place], White (test code <0.10 Class 0 = 6189-5) F215-VsN Elm, [place]yan (test <0.10 Class 0 code = 6109-3) F742-SqQ [place] (test code <0.10 Class 0 = 6090-5) P055-MhB Pecan, [place] (test <0.10 Class 0 code = 6209-1) L523-IfG White Grass Range (test <0.10 Class 0 code = 6281-0) Z059-BhL Ragweed, Short (test <0.10 Class 0 code = 6085-5) V421-FuK Pigweed, Rough (test <0.10 Class 0 code = 7604-2) B462-XvM Sheep [place] (test <0.10 Class 0 code = 6244-8) N977-SgD Mouse Urine (test <0.10 Class 0 code = D663-HbE Mouse Urine) [facility] performed at: [BN] [address], [address], , Product Safety Compliance Leader: Odessa Butler MDL - MONICA w/Reflex if [id number] 11:46:00 Test Item Value Reference Range Comments MONICA Direct (test code = 8061-4) Negative Negative [facility] performed at: [] [address], [address], , Product Safety Compliance Leader: Odessa Butler MDL - Complement C3, [id number] 11:46:00 Test Item Value Reference Range Comments Complement C3, Serum (test code = Complement C3, 190 mg/dL 82-167 Serum) [facility] performed at: [] [address], [address], , Product Safety Compliance Leader: Odessa Butler MDL - Immunoglobulins A/E/G/M, [id number] 11:46:00 Test Item Value Reference Range Comments Immunoglobulin G, Qn, Serum (test code = 2465-3) 1352 mg/dL 586-1602 Immunoglobulin A, Qn, Serum (test code = 2458-8) 330 mg/dL 87-352 Immunoglobulin M, Qn, Serum (test code = 2472-9) 112 mg/dL 26-217 Immunoglobulin E, Total (test code = 40991-7) 251 {IU/mL} 6- 495 [facility] performed at: [] [address], [address], , Product Safety Compliance Leader: Odessa Butler MDL - Complement C4, [id number] 11:46:00 Test Item Value Reference Range Comments Complement C4, Serum (test code 30 mg/dL 12-38 = Complement C4, Serum) Please note reference interval change* * [facility] performed at: [] [address], [address], , Product Safety Compliance Leader: Odessa Butler MDCreatinine, [id number] 11:46:00 Test Item Value Reference Range Comments Creatinine, Urine 57.8 mg/dL Not Estab. (test code = 2161-8) Protein,Total,Urine <4.0 Not Estab. (test code = 2888-6) Protein/Creat Ratio Comment 0-200 This result is below the assay's (test code = limit of quantit ationindicating a Protein/Creat Ratio) dilute spec imen, potentially due to diurnalvariation . Consider recollection at a time likely toprovide a more concentrated urine. [facility] performed at: [BN] [facility], [address] [place] [address], [address], , Product Safety Compliance Leader: Odessa Butler MDL - Antihistone [id number] 11:46:00 Test Item Value Reference Range Comments Anti-histone Abs; Above High 1.7 {Units} 0.0-0.9 Threshold (test code = Negative 81359-2) <1.0 Weak Positive 1. 0 - 1.5 Moderate Po sitive 1.6 - 2.5 Strong Positive >2.5 [facility] performed at: [BN] [facility], [address] [place] [address], [address], , Product Safety Compliance Leader: Odessa Butler [facility](Complete Metabolic Panel)2019-11-25 11:58:00 Test Item Value Reference Range Comments Glucose (test code = Glucose) 83 mg/dL 74-106 Sodium (test code = Sodium) 140 mmol/L 135-145 Potassium (test code = Potassium) 4.1 mmol/L 3.5-5.3 Chloride (test code = Chloride) 106 mmol/L 98-107 CO2 (test code = CO2) 26 mmol/L 22-30 Creatinine, serum (test code = Creatinine, serum) 0.80 mg/dL 0.10-1.04 Glomerular Filtration Rate (test code = >60 >60 Glomerular Filtration Rate) Glomerular Filtration Rate AA (test code = >60 >60 Glomerular Filtration Rate AA) Blood Urea Nitrogen (test code = Blood Urea 11 mg/dL 7-17 Nitrogen) Calcium (test code = Calcium) 9.5 mg/dL 8.4-10.5 Phosphorus (test code = Phosphorus) 4.1 mg/dL 2.5-4.5 Total Protein (test code = Total Protein) 7.8 g/dL 6.3-8. 2 Albumin (test code = 41728-4) 4.0 g/dL 3.5-5.0 Total Bilirubin (test code = Total Bilirubin) 0.5 mg/dL 0. 2-1.3 Bilirubin, unconj (test code = Bilirubin, unconj) 0.4 mg/dL 0.0-1.1 Bilirubin, Direct (test code = Bilirubin, Direct) 0.1 mg/dL 0.0-0.4 Alkaline Phosphatase (test code = Alkaline 70 U/L 20-15 0 Phosphatase) Alanine Transaminase (test code = Alanine 14 U/L 0-35 Transaminase) Aspartate Aminotransferase (test code = Aspartate 21 U/L 3-36 Aminotransferase) [id number] 11:58:00 Test Item Value Reference Range Comments C-Reactive Protein (test code = C-Reactive Protein) 9 mg/L <10 Sed [id number] 11:57:00 Test Item Value Reference Range Comments Erythrocyte Sedimentation Rate (test code = 57 {mm/hr} 0-30 Erythrocyte Sedimentation Rate) Creatinine, [id number] 11:57:00 Test Item Value Reference Range Comments Creatinine, Urine (test code = 2161-8) 94.3 mg/dL Not Estab . Protein,Total,Urine (test code = 2888-6) 6.9 mg/dL Not Est ab. Protein/Creat Ratio (test code = 73 {mg/g creat} 0-200 Protein/Creat Ratio) [facility] performed at: [BN] [address], [address], , Product Safety Compliance Leader: Odessa Butler MDProtein, Total, [id number] 11:57:00 Test Item Value Reference Range Comments Protein, Total, Serum 7.5 g/dL 6.0-8.5 (test code = 2885-2) Albumin (test code = 3.8 g/dL 2.9-4.4 2862-1) Zcmbq-0-Lnsvxdin (test 0.2 g/dL 0.0-0.4 code = 2865-4) Cwxdw-3-Xowppbie (test 0.7 g/dL 0.4-1.0 code = 2868-8) Beta Globulin (test code 1.3 g/dL 0.7-1.3 = 2871-2) Gamma Globulin (test code 1.6 g/dL 0.4-1.8 = 2874-6) M-Vasyl (test code = Not Observed Not Observed 61954-7) Globulin, Total (test 3.7 g/dL 2.2-3.9 code = 49080-4) A/G Ratio (test code = 1.0 0.7-1.7 1759-0) Please note: (test code = Comment Protei n electrophoresis scan Please note:) will follow via computer,mail, or resolution manager elda turner. P E Interpretation, S Comment The SPE pa ttern appears (test code = 48908-4) unremarkab le. Evidence ofmonoclonal pro tein is not apparent. PDF (test code = PDF) . [facility] performed at: [BN] [address], [address], , Product Safety Compliance Leader: Odessa Butler [id number] 11:57:00 Test Item Value Reference Range Comments White Blood Cell (test code = White Blood Cell) 5.2 K/uL 3.5-11.1 Red Blood Cell (test code = Red Blood Cell) 4.15 {M/uL} 3.69 -4.87 Hemoglobin (test code = Hemoglobin) 11.2 g/dL 11.4-14.4 Hematocrit (test code = Hematocrit) 35 % 33-41 Mean Corpuscular Volume (test code = Mean 84.8 fL 79.0-9 5.0 Corpuscular Volume) Mean Corpuscular Hemoglobin (test code = Mean 27.0 pg/mL 27 .0-33.0 Corpuscular Hemoglobin) Mean Corpuscular Hemoglobin Concentration (test 31.8 g/dL 33.5-35.5 code = Mean Corpuscular Hemoglobin Concentration) Red Cell Distribution Width (test code = Red 14.6 % 12. 0-15.0 Cell Distribution Width) Platelet (test code = Platelet) 287 K/uL 130-353 Mean Platelet Volume (test code = Mean Platelet 9.9 fL 7.5-10.7 Volume) Neutrophil Count, absolute (test code = 1.9 K/uL 1.9-7.2 Neutrophil Count, absolute) Neutrophil Count Percentage (test code = 36.8 % 43.0-72 .0 Neutrophil Count Percentage) Lymphocyte Count, absolute (test code = 2.7 K/uL 1.1-2.7 Lymphocyte Count, absolute) Lymphocyte Count Percentage (test code = 51.3 % 17.0-44 .0 Lymphocyte Count Percentage) Monocyte Count, absolute (test code = Monocyte 0.2 K/uL 0 .3-0.8 Count, absolute) Monocyte Count Percentage (test code = Monocyte 4.4 % 4.5-12.4 Count Percentage) Eosinophil Count, absolute (test code = 0.3 K/uL 0.0-0.5 Eosinophil Count, absolute) Eosinophil Count Percentage (test code = 6.5 % 0.7-7.8 Eosinophil Count Percentage) Basophil Count, absolute (test code = Basophil 0.0 K/uL 0 .0-0.1 Count, absolute) Basophil Count Percentage (test code = Basophil 0.6 % 0.2-1.1 Count Percentage) Nucleated Red Blood Cell, absolute (test code = 0.00 K/uL 0.00-0.00 Nucleated Red Blood Cell, absolute) Nucleated Red Blood Cell, percentage (test code 0.00 % 0.00-0.00 = Nucleated Red Blood Cell, percentage) [id number] 11:57:00 Test Item Value Reference Range Comments Urine Color (test code = Urine Color) LT. YELLOW Yellow Urine Clarity (test code = Urine Clarity) CLEAR Clear Urine Glucose (test code = Urine Glucose) NEGATIVE Negati ve Urine Ketones (test code = Urine Ketones) NEGATIVE Negati ve Urine Bilirubin (test code = Urine Bilirubin) NEGATIVE Ne gative Urine Specific [place] (test code = Urine 1.020 1.010- 1.030 Specific [place]) Urine Blood (test code = Urine Blood) NEGATIVE Negative Urine pH (test code = Urine pH) 5.5 5.0-8.0 Urine Protein (test code = Urine Protein) NEGATIVE Negati ve Urine Urobilinogen (test code = Urine 0.2 Eu/dl 0.2 Urobilinogen) Urine Nitrites (test code = Urine Nitrites) NEGATIVE Nega tive Urine Leukocytes (test code = Urine Leukocytes) NEGATIVE Negative Assessments Condition Name Status Diagnosis Date Treating Clinici an Dorsalgia, unspecified Active 0 Crohn's disease, unspecified, without Active 0 complications Jaw pain Active 0 Complex tear of medial mensc, current Active injury, l knee, init Oth tear of lat mensc, current injury, left Active knee, init Chondromalacia, left knee Active Loose body in knee, left knee Active Rheumatoid arthritis involving both hands Active with negative rheumatoid factor Chronic inflammatory arthritis Active Chronic upper back pain Active Crohn's related arthritis Active Fatigue Active Drug-induced hypersensitivity syndrome, Active sequela Crohn's disease Active Parotiditis Active 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 Bilateral hand pain Active Immune disorder Active Chronic inflammatory arthritis Active Low back pain with sciatica Active Crohn's related arthritis Active Fatigue Active Crohn's disease Active DJD (degenerative joint disease), lumbar Active Rheumatoid arthritis involving both hands Active with negative rheumatoid factor Bilateral hand pain Active Rheumatoid arthritis involving both hands Active with negative rheumatoid factor Low back pain with sciatica Active Crohn's related arthritis Active Immune disorder Active Crohn's disease Active History of systemic lupus erythematosus Active (SLE) Chronic upper back pain Active Crohn's disease Active Parotiditis Active Jaw pain Active Rheumatoid arthritis involving both hands Active with negative rheumatoid factor Rheumatoid arthritis involving both hands Active with negative rheumatoid factor Chronic inflammatory arthritis Active Crohn's related arthritis Active Immune disorder Active 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 Vitamin D deficiency, unspecified Active Pain in left knee Active Bilateral primary osteoarthritis of knee Active Oth meniscus derangements, other medial Active meniscus, left knee Pain in right knee Active Chronic inflammatory arthritis Active Chronic upper back pain Active Crohn's related arthritis Active Immune disorder Active Crohn's disease Active DJD (degenerative joint disease), lumbar Active Large breasts Active Arthropathy of knee Active Encounters Start End Encounter Admission Attending Care Care Encounter Date/Time Date/Time Type Type Clinicians Facility Department ID 2020-02-12 2020-02-12 Appointment [facility] CETW [id number] 10:45:00 10:45:00 ; Rosas John D.O. 2019-11-25 2019-11-25 [facility] [id number] 10:45:00 10:45:00 ; Rosas John D.O. 2019-07-06 2019-07-06 Appointment [facility] [id number] 15:00:00 15:00:00 ; Rosas John D.O. 2019-04-03 2019-04-03 [id number] 15:23:58 23:59:59 Rosas 2019-04-03 2019-04-03 Appointment [facility] [id number] 10:45:00 10:45:00 ; Rosas John D.O. 2018-10-24 2018-10-24 Appointment [facility] [id number] 11:30:00 11:30:00 ; Rosas John D.O. 2018-10-16 2018-10-16 Appointment [facility] [id number] 10:15:00 10:15:00 ; Joey Moscoso MD 2018-10-01 2018-10-01 Appointment [facility] [id number] 12:25:00 12:25:00 ; Fatou Bray 2018-09-29 2018-09-29 Appointment [facility] [id number] 11:30:00 11:30:00 ; Rosas John D.O. 2018-05-13 2018-05-13 Appointment [facility] [id number] 11:15:00 11:15:00 ; Lai Parish MD 2018-03-11 2018-03-11 Outpatient [facility] [id number]-[id number] 10:25:00 10:25:00 [facility] [id number] \T\ Sports [id number] [facility] [id number] 2018-03-07 2018-03-07 Appointment [facility] [id number] 10:15:00 10:15:00 ; oRsas John D.O. 2018-01-31 2018-01-31 Outpatient [facility] [id number] 14:30:00 14:30:00 [facility] [id number] \T\ Sports [id number] [id number] 2017-12-06 2017-12-06 [facility] [id number] 10:15:00 10:15:00 ; Rosas John D.O. Family History Family Member Diagnosis Comments Start Date Stop Date Mother Family history of Mesothelioma Payers Payer Name Policy Type Policy Number Effective Date Expiration D ate Social History Smoking Status Start Date Stop Date Never smoked tobacco (finding) Vital Signs Vital Name Observation Time Observation Value Comments Systolic blood pressure 2020-02-12 10:55:00 124 mm[Hg] Diastolic blood pressure 2020-02-12 10:55:00 82 mm[Hg] Body height 2020-02-12 10:55:00 63 [in_us] Weight 2020-02-12 10:55:00 252 [lb_av] Body mass index (BMI) [Ratio] 2020-02-12 10:55:00 44.64 kg/m2 Body temperature 2020-02-12 10:55:00 97.5 [degF] Heart Rate 2020-02-12 10:55:00 77 /min Respiratory rate 2020-02-12 10:55:00 17 /min O2 SAT 2020-02-12 10:55:00 100 % Source: RA Systolic blood pressure 2019-11-25 11:34:00 124 mm[Hg] Diastolic blood pressure 2019-11-25 11:34:00 76 mm[Hg] Body height 2019-11-25 11:34:00 63 [in_us] Weight 2019-11-25 11:34:00 256.375 [lb_av] Body mass index (BMI) [Ratio] 2019-11-25 11:34:00 45.42 kg/m2 Body temperature 2019-11-25 11:34:00 98.2 [degF] Heart Rate 2019-11-25 11:34:00 59 /min Respiratory rate 2019-11-25 11:34:00 18 /min O2 SAT 2019-11-25 11:34:00 99 % Source: [facility] Hospital Discharge Instructions NameDatesDetailsInstructions not documentedNameDatesDetailsInstructions not documented
== END 2020-02-17 07:35 | disposition home or self-care (01) ==
LOC: ER 02:36
DX: M54.16 Radiculopathy, lumbar region (principal); M62.830 Muscle spasm of back; I10 Essential (primary) hypertension; K50.90 Crohn's disease, unspecified, without complications; Z79.891 Long term (current) use of opiate analgesic; Z88.6 Allergy status to analgesic agent; Z88.5 Allergy status to narcotic agent; Z88.8 Allergy status to other drugs, medicaments and biological substances
CPT/HCPCS: 99285; 96372; 72131; A9270; J1170

== ENCOUNTER → 2020-02-17 | Outpatient (CLI) | payer MEDICARE, MEDICAID ==
--- NOTE | 2020-02-17 13:09 | RADIOLOGY REPORT (SQ) ---
EXAM DESCRIPTION: HIP LEFT AP/LATERAL IMAGES COMPLETED DATE/TIME: 02/17/2020 11:53 am REASON FOR STUDY: PAIN IN LEFT HIP M25.552 PAIN IN LEFT HIP COMPARISON: None. NUMBER OF VIEWS: Two views. TECHNIQUE: AP pelvis and additional frog legview of the left hip. LIMITATIONS: None. FINDINGS: MINERALIZATION: Normal. LEFT HIP: No significant joint space narrowing. There is subchondral sclerosis and small osteophytes . RIGHT HIP: Similar changes on the right. PUBIS AND ISCHIUM: No fracture. PELVIS: No fracture. SACRUM: No fracture or dislocation. No worrisome bone lesions. LOWER LUMBAR SPINE: No fracture or dislocation. No worrisome bone lesions. No significant disc disea se. SOFT TISSUES: No findings. OTHER: No other significant finding. IMPRESSION: Degenerative changes with subchondral sclerosis and small osteophytes. Joint space is m aintained. TECHNICAL DOCUMENTATION: JOB ID: [id number] 2010 [employer]- All Rights Reserved Reading location - IP/workstation name: [email or web address]
--- OUTSIDE RECORDS SUMMARY | 2020-02-18 18:30 | XMS REPORT ---
:1965 [facility] [address] [place] [address] Care Team Providers Name Role Phone DineroIsela [...] 7-13 (Ergocalci trish) 1.25 00:00: ferol) MG (30734 00 1.25 MG UT) Oral (49393 UT) Capsule Oral Capsule TK ONE C [...] - Prot+CreatU (Random) 2020-02-12 00:00:00 L - OMNICA w/Reflex if Positive 2020-02-12 00:00:00 L - [...] 00:00:00 KNEE ARTHROSCOPY/SURGERY 2018-03-11 10:25:00 OFFICE/OUTPATIENT VISIT, [facility] 2018-01-31 14:30:00 History of Cholecystectomy History [...] Urine Bilirubin) NEGATIVE Ne gative Urine Specific [place] (test code = Urine Specific [place]) 1.01 5 1.010-1.030 Urine Blood (test code = Urine Blood) NEGATIVE Negative Urine pH (test code = Urine pH) 7.5 5.0-8.0 Urine Protein (test code = Urine Protein) NEGATIVE Negati ve Urine Urobilinogen (test code = Urine Urobilinogen) 0.2 Eu/dl 0.2 Urine Nitrites (test code = Urine Nitrites) NEGATIVE Nega tive Urine Leukocytes (test code = Urine Leukocytes) NEGATIVE Negative [id number] 11:46:00 Test Item Value Reference Range Comments [...] 0.00-0.00 = Nucleated Red Blood Cell, percentage) [id number] 11:46:00 Test Item Value Reference Range Comments [...] g/dL 6.3-8. 2 Albumin (test code = 00501-6) 4.2 g/dL 3.5-5.0 Total Bilirubin (test code [...] = Aspartate 20 U/L 3-36 Aminotransferase) Sed [id number] 11:46:00 Test Item Value Reference Range Comments Erythrocyte Sedimentation Rate (test code = 82 {mm/hr} 0-30 Erythrocyte Sedimentation Rate) S697-DgN [id number] 11:46:00 Test Item Value Reference Range Comments U092-EwG Milk (test code = <0.10 Class 0 7258-7) A770-AiA Wheat (test code = <0.10 Class 0 6276-0) U135-YnS [place] (test code = <0.10 Class 0 6087-1) R833-NmQ Peanut (test code = <0.10 Class 0 6206-7) L528-PvF Soybean (test code = <0.10 Class 0 6248-9) Z459-IpD Pork (test code = <0.10 Class 0 6219-0) J235-HrJ Beef (test code = <0.10 Class 0 6039-2) CH97-IlF Food Mix (Seafoods) Negative All ergens in this mix are: Blue (test code = 66955-0) mussel Fis h [place] Shrimp Tuna Q660-TjH Egg, Whole (test <0.10 Class 0 code = 7291-8) C837-PcO Chocolate/Delta <0.10 Class 0 (test code = 6080-6) [facility] performed at: [BN] [address], [place], [address], , [employer]aporative [employer] Installer: Odessa Butler MDL - Allergens w/Total IgE Area [id number] 11:46:00 Test Item Value Reference Range Comments [...] 100.00 V Very High >100.00 Very High H583-WwT D pteronyssinus; 2.01 kU/L Class III Abnormal (test code = 6096-2) G381-XqI D farinae; Abnormal 2.41 kU/L Class III (test code = 6095-4) N394-PfN Cat Dander (test code <0.10 Class 0 = 6833-8) O956-HcW Dog Dander (test code <0.10 Class 0 = 6098-8) C909-CvH [place] Grass (test <0.10 Class 0 code = 6041-8) R652-AcL Adiel Grass (test <0.10 Class 0 code = 6265-3) X781-HoG Bashir Grass (test <0.10 Class 0 code = 6152-3) Z881-QxD Cockroach, Frisian <0.10 Class 0 (test code = 6078-0) T833-IsP Penicillium chrysogen <0.10 Class 0 (test code = 6212-5) L830-OjL Cladosporium herbarum <0.10 Class 0 (test code = 6075-6) O565-XlU Aspergillus fumigatus <0.10 Class 0 (test code = 6025-1) N054-HhV Alternaria alternata <0.10 Class 0 (test code = 6020-2) V491-IcP Maple/Sullivan (test <0.10 Class 0 code = 7155-5) I742-GeG Common Silver Birch <0.10 Class 0 (test code = 40483-7) D713-QrA [place], Mountain (test <0.10 Class 0 code = 6178-8) M964-NzS [place], White (test code <0.10 Class 0 = 6189-5) H835-FpB Elm, Moldovan (test <0.10 Class 0 code = 6109-3) Q003-QcL [place] (test code <0.10 Class 0 = 6090-5) B068-JnR Pecan, [place] (test <0.10 Class 0 code = 6209-1) J505-YcM White [place] (test <0.10 Class 0 code = 6281-0) B864-DcA Ragweed, Short (test <0.10 Class 0 code = 6085-5) N166-TsF Pigweed, Rough (test <0.10 Class 0 code = 7604-2) C435-DoT Sheep [place] (test <0.10 Class 0 code = 6244-8) I945-UzY Mouse Urine (test <0.10 Class 0 code = D010-FqO Mouse Urine) [facility] performed at: [BN] [address], [address], , [employer]aporative [employer] Installer: Odessa Butler MDL - MONICA w/Reflex if [id number] 11:46:00 Test Item Value Reference Range Comments MONICA Direct (test code = 8061-4) Negative Negative [facility] performed at: [] [address], [address], , Evaporative Cool[employer] Installer: Odessa Butler MDL - Complement C3, [id number] 11:46:00 Test Item Value Reference Range Comments Complement C3, Serum (test code = Complement C3, 190 mg/dL 82-167 Serum) [facility]: [] [address], [address], , Evaporative [employer]er Installer: Odessa Butler MDL - Immunoglobulins A/E/G/M, [id number] 11:46:00 Test Item Value Reference Range Comments Immunoglobulin G, Qn, Serum (test code = 2465-3) 1352 mg/dL 586-1602 Immunoglobulin A, Qn, Serum (test code = 2458-8) 330 mg/dL 87-352 Immunoglobulin M, Qn, Serum (test code = 2472-9) 112 mg/dL 26-217 Immunoglobulin E, Total (test code = 62681-5) 251 {IU/mL} 6- 495 [facility] at: [] [address], [address], , Evaporative Cooler Installer: Odessa Butler MDL - Complement C4, [id number] 11:46:00 Test Item Value Reference Range Comments Complement C4, Serum (test code 30 mg/dL 12-38 = Complement C4, Serum) Please note reference interval change* * [facility] performed at: [] [address], [address], , Evaporative Cooler Installer: Odessa Butler MDCreatinine, [id number] 11:46:00 Test Item Value Reference Range Comments [...] time likely toprovide a more concentrated urine. [facility] at: [BN] [facility], [address] [place] [address], [address], , Evaporative Cooler Installer: Odessa Butler MDL - Antihistone [id number] 11:46:00 Test Item Value Reference Range Comments Anti-histone Abs; Above High 1.7 {Units} 0.0-0.9 Threshold (test code = Negative 52466-1) <1.0 Weak Positive 1. 0 - 1.5 Moderate Po sitive 1.6 - 2.5 Strong Positive >2.5 [facility] performed at: [BN] [facility], [address] [place] [address], [address], , Evaporative Cooler Installer: Odessa Butler [facility](Complete Metabolic Panel)2019-11-25 11:58:00 Test Item Value Reference [...] g/dL 6.3-8. 2 Albumin (test code = 14314-2) 4.0 g/dL 3.5-5.0 Total Bilirubin (test code [...] code = Aspartate 21 U/L 3-36 Aminotransferase) [id number] 11:58:00 Test Item Value Reference Range Comments C-Reactive Protein (test code = C-Reactive Protein) 9 mg/L <10 Protein, Total, [id number] 11:57:00 Test Item Value Reference Range Comments Protein, Total, Serum 7.5 g/dL 6.0-8.5 (test code = 2885-2) Albumin (test code = 3.8 g/dL 2.9-4.4 2862-1) Ntfiu-8-Nzttdedm (test 0.2 g/dL 0.0-0.4 code = 2865-4) Tzbmi-1-Qlxzmbfk (test 0.7 g/dL 0.4-1.0 code = 2868-8) Beta Globulin (test code 1.3 g/dL 0.7-1.3 = 2871-2) Gamma Globulin (test code 1.6 g/dL 0.4-1.8 = 2874-6) M-Vasyl (test code = Not Observed Not Observed 90564-3) Globulin, Total (test 3.7 g/dL 2.2-3.9 code = 27949-0) A/G Ratio (test code = 1.0 0.7-1.7 1759-0) Please note: (test code = Comment Protei n electrophoresis scan Please note:) will follow via computer,mail, or area director of home health sales elda turner. P E Interpretation, S Comment The SPE pa ttern appears (test code = 05639-2) unremarkab le. Evidence ofmonoclonal pro tein is not apparent. PDF (test code = PDF) . [facility]: [BN] [address], [place], [address], , Evaporative Cooler Installer: Odessa Butler [id number] 11:57:00 Test Item Value Reference Range Comments [...] 0.00-0.00 = Nucleated Red Blood Cell, percentage) [id number] 11:57:00 Test Item Value Reference Range Comments Urine Color (test code = Urine Color) LT. YELLOW Yellow Urine Clarity (test code = Urine Clarity) CLEAR Clear Urine Glucose (test code = Urine Glucose) NEGATIVE Negati ve Urine Ketones (test code = Urine Ketones) NEGATIVE Negati ve Urine Bilirubin (test code = Urine Bilirubin) NEGATIVE Ne gative Urine Specific [place] (test code = Urine 1.020 1.010- 1.030 Specific [place]) Urine Blood (test code = Urine Blood) NEGATIVE Negative Urine pH (test code = Urine pH) 5.5 5.0-8.0 Urine Protein (test code = Urine Protein) NEGATIVE Negati ve Urine Urobilinogen (test code = Urine 0.2 Eu/dl 0.2 Urobilinogen) Urine Nitrites (test code = Urine Nitrites) NEGATIVE Nega tive Urine Leukocytes (test code = Urine Leukocytes) NEGATIVE Negative Sed [id number] 11:57:00 Test Item Value Reference Range Comments Erythrocyte Sedimentation Rate (test code = 57 {mm/hr} 0-30 Erythrocyte Sedimentation Rate) Creatinine, [id number] 11:57:00 Test Item Value Reference Range Comments Creatinine, Urine (test code = 2161-8) 94.3 mg/dL Not Estab . Protein,Total,Urine (test code = 2888-6) 6.9 mg/dL Not Est ab. Protein/Creat Ratio (test code = 73 {mg/g creat} 0-200 Protein/Creat Ratio) [facility] performed at: [] [place] [address] [facility], [place], [address], , Evaporative Cooler Installer: Odessa Butler MD Assessments Condition Name Status Diagnosis Date Treating [...] Clinicians Facility Department ID 2020-02-12 2020-02-12 Appointment [facility] CETW [id number] 10:45:00 10:45:00 ; Rosas John D.O. 2019-11-25 2019-11-25 [id number] 10:45:00 10:45:00 ; Rosas John D.O. 2019-07-06 2019-07-06 Appointment [facility] [id number] 15:00:00 15:00:00 ; Rosas John D.O. 2019-04-03 2019-04-03 [facility] [id number] 15:23:58 23:59:59 Rosas 2019-04-03 2019-04-03 Appointment [facility] [id number] 10:45:00 10:45:00 ; Rosas John D.O. 2018-10-24 2018-10-24 Appointment [facility] [id number] 11:30:00 11:30:00 ; Rosas John D.O. 2018-10-16 2018-10-16 Appointment [facility] [id number] 10:15:00 10:15:00 ; Joey Moscoso MD 2018-10-01 2018-10-01 Appointment [facility] [id number] 12:25:00 12:25:00 ; Fatou Bray 2018-09-29 2018-09-29 Appointment [facility] [id number] 11:30:00 11:30:00 ; Rosas John D.O. 2018-05-13 2018-05-13 Appointment [facility] [id number] 11:15:00 11:15:00 ; Lai Parish MD 2018-03-11 2018-03-11 Outpatient [facility] [id number] 2CA-[id number] 10:25:00 10:25:00 [facility] [id number] 88-B \T\ Sports [phone] [facility] [id number] 2018-03-07 2018-03-07 Appointment [facility] [id number] 10:15:00 10:15:00 ; Rosas John D.O. 2018-01-31 2018-01-[address] [facility] [id number] [id number] 14:30:00 14:30:00 [facility] [id number] \T\ Sports [id number] [id number] 2017-12-06 2017-12-06 [facility] [id number] 10:15:00 10:15:00 ; Rosas John D.O. [...]
== END ==
LOC: OD 10:47
PROVIDERS: ATTEND Physician Assistant
DX: M16.12 Unilateral primary osteoarthritis, left hip (principal); M25.552 Pain in left hip; M06.9 Rheumatoid arthritis, unspecified